=== PATIENT | male | born 1980 | race Caucasian/White ===

== ENCOUNTER → 2017-12-27 08:13 | Outpatient (CLI) | payer MEDICARE, MEDICAID, SELFPAY | PROVIDERS: Family Provider Family Medicine; PCP Family Medicine; Visit Provider Family Medicine | DX: Z79.899 Other long term (current) drug therapy (principal) | CPT/HCPCS: 36415; 82140 ==

== ENCOUNTER 2018-05-04 17:59 | Emergency (ER) | payer MEDICARE, MEDICAID, SELFPAY ==
[2018-05-04 18:00] VITALS: BP 158/118; PULSE 134; RESP 28; TEMP 37.7; O2SAT 99; BMI 32.1
[2018-05-04 18:39] LABS: Absolute Lymphocyte Count 2.58 X10^3/ul (0.83-4.51); Absolute Neutrophil Count 4.3 X10^3/uL (2.0-7.7); Basophil# 0.02 X10^3/uL; Basophil% 0.3 % (0-1); Eosinophil# 0.13 X10^3/uL; Eosinophils% 1.7 % (0-5); Hematocrit 43.8 % (40-54); Hemoglobin 14.9 g/dl (13.0-16.5); Lymphocyte # 2.58 X10^3/ul (4.0); Lymphocyte % 32.9 % (19-41); Mean Corpuscular Hgb 32.2 pg (27.0-32.0); Mean Corpuscular Volume 94.6 fL (80-94); Mean Platelet Vol. 10.6 fl (6.2-12.0); Monocyte# 0.85 X10^3/uL; Monocyte% 10.8 % (0-10); Neutrophil # 4.25 X10^3/uL (2.7-7.7); Neutrophil % 54.2 % (47-70); POSITIVE COUNT NO; POSITIVE DIFFERENTIAL NO; POSITIVE MORPHOLOGY NO; Platelet Count 168 K/mm3 (150-450); RBC Distribution Width CV 12.5 % (11.6-14.6); RBC Distribution Width SD 42.7 fl (35.1-43.9); Red Blood Count 4.63 M/mm3 (4.6-6.2); White Blood Count 7.8 K/mm3 (4.4-11.0)
[2018-05-04 18:54] LABS: AST(SGOT) 20 U/L (15-37); Alanine Aminotransfer ALT/SGPT 46 U/L (16-61); Albumin, Serum 4.2 g/dL (3.2-5.0); Alkaline Phosphatase 72 U/L (45-117); Anion Gap 12 (5-15); BUN 9 mg/dL (7-18); BUN/Creat Ratio 10.6 RATIO (10-20); Calcium,Total 9.1 mg/dL (8.5-10.1); Chloride 106 mmol/L (98-107); Creatinine, Serum 0.85 mg/dL (0.70-1.30); EST Glomerular Filtration Rate 107 mL/min (>60); Est Glom Filt Rate - Afr Amer 130 mL/min (>60); Estimated Creatinine Clearance 138.34 ml/min; Globulin 4.1 g/dL (2.2-4.2); Glucose 114 mg/dL (74-106); Potassium 3.5 mmol/L (3.5-5.1); Protein, Total 8.3 g/dL (6.4-8.2); Sodium Level 141 mmol/L (136-145)
[2018-05-04] MEDS: 0.9% Normal Saline 1,000 ML 1000 ML IV (18:54)
[2018-05-04 19:38] VITALS: BP 164/104; PULSE 109; RESP 18; TEMP 37; O2SAT 96
[2018-05-04 19:39] LABS: Bacteria 0 SEEN /hpf (None Seen); Mucous, Urine 0 SEEN /hpf (<or=2+); Squamous Epithelial Cells - UA 0 SEEN /hpf (0-5)
[2018-05-04 19:57] LABS: Color, Urine Yellow (Yellow); Glucose, Dipstick Normal (Normal); Ketone-Dipstick Negative (Negative); Leukocyte Esterase-Dipstick Negative /ul (Negative); Nitrite-Dipstick Negative (Negative); Occult Blood-Urine Negative /ul (Negative); Protein-Dipstick Negative (Negative); Urine Bilirubin Dipstick Negative (Negative); Urine Clarity Clear (Clear); Urine Urobilinogen Normal (Normal)
[2018-05-04 20:03] LABS: Red Blood Cells-Urine 0-5 SEEN /hpf (0-5); White Blood Cells 0-5 SEEN /hpf (0-5)
--- NOTE | 2018-05-04 20:21 | ED.VISSUMM ---
- ER Visit Summary Date of Service: 05/04/18 Chief Complaint: Issues History of Present Illness: The patient is a 37 M who resides in a care home. He is here with his mother. He has had some behavioral issues today. He is mostly nonverbal, and so history is difficult. Staff at his care home have noted low-grade fevers, swollen glands, and he has been complaining of abdominal pain. He has been treated with Motrin and Ativan, and seems to be improved. Physical Examination: Blood pressure 158/118. Temperature 99.9. Heart rate 134 and respiratory rate 28. 99% on room air. Patient is sitting comfortably. No acute distress. HEENT exam unremarkable except for erythema and bulging to his right TM. No lymphadenopathy. Good range of motion of his neck. Nontender. Heart tachycardic but regular. Lungs clear. Abdomen soft, nontender, nondistended, normal bowel sounds. Extremities nontender with no edema. Skin appears normal in color. Test Results: CBC normal. BMP unremarkable. Urinalysis negative. Chest x-ray showed no acute findings. Alcohol negative. Tox screen pending. Emergency Department Course and Treatment: Patient presents with his mother and staff from the care home. He has had behavioral issues today, and they are concerned for a medical cause, possibly infection. They took him to his primary doctor, who referred him here to the emergency department. Patient has signs of an ear infection. This may be causing his fevers. He has been calm and cooperative here. He did not require psychiatric medication. His workup was all fairly unremarkable. Repeat heart rate was 104. He is afebrile. His abdomen remains soft and nontender. His behavior is appropriate, and his mother does not want psychiatric hospitalization. From a medical standpoint, I believe he is appropriate for outpatient therapy. Will treat with Augmentin. Continue Motrin and Tylenol as needed. Monitor for new or worsening symptoms. I advised her to bring him back if he has further behavioral issues. Treatment Plan: As above Disposition: Discharged Impression: 1. Right acute otitis media This note was generated with Shortlist dictation software. It may contain incorrect words, spelling, and punctuation that were not noted in review of the chart prior to signing ED Disposition - Plan for ED Patient: Chief Complaint: Other, Pain/Inj Referrals: Say Basilio MD [Primary Care Provider] -
--- NOTE | 2018-05-04 20:26 | ED.DCSUM_ITS ---
- ER Visit Summary Date of Service: 05/04/18 Chief Complaint: Issues History of Present Illness: The patient is a 37 M who resides in a fpc. He is here with his mother. He has had some behavioral issues today. He is mostly nonverbal, and so history is difficult. Staff at his fpc have noted low-grade fevers, swollen glands, and he has been complaining of abdominal pain. He has been treated with Motrin and Ativan, and seems to be improved. Physical Examination: Blood pressure 158/118. Temperature 99.9. Heart rate 134 and respiratory rate 28. 99% on room air. Patient is sitting comfortably. No acute distress. HEENT exam unremarkable except for erythema and bulging to his right TM. No lymphadenopathy. Good range of motion of his neck. Nontender. Heart tachycardic but regular. Lungs clear. Abdomen soft, nontender, nondistended, normal bowel sounds. Extremities nontender with no edema. Skin appears normal in color. Test Results: CBC normal. BMP unremarkable. Urinalysis negative. Chest x-ray showed no acute findings. Alcohol negative. Tox screen pending. Emergency Department Course and Treatment: Patient presents with his mother and staff from the fpc. He has had behavioral issues today, and they are concerned for a medical cause, possibly infection. They took him to his primary doctor, who referred him here to the emergency department. Patient has signs of an ear infection. This may be causing his fevers. He has been calm and cooperative here. He did not require psychiatric medication. His workup was all fairly unremarkable. Repeat heart rate was 104. He is afebrile. His abdomen remains soft and nontender. His behavior is appropriate, and his mother does not want psychiatric hospitalization. From a medical standpoint, I believe he is appropriate for outpatient therapy. Will treat with Augmentin. Continue Motrin and Tylenol as needed. Monitor for new or worsening symptoms. I advised her to bring him back if he has further behavioral issues. Treatment Plan: As above Disposition: Discharged Impression: 1. Right acute otitis media This note was generated with [employer] dictation software. It may contain incorrect words, spelling, and punctuation that were not noted in review of the chart prior to signing ED Disposition - Plan for ED Patient: Chief Complaint: Other, Pain/Inj Referrals: Say Basilio MD [Primary Care Provider] -
--- NOTE | 2018-05-04 20:26 | ED.DEP ---
ED Disposition - Plan for ED Patient: Chief Complaint: Other, Pain/Inj Instructions: ED Otitis Media Serous Adult Prescriptions: Amoxicillin/Potassium Clav [Augmentin 875-125 Tablet] 1 ea PO BID #20 tab Referrals: Say Basilio MD [Primary Care Provider] -
[2018-05-04 20:29] LABS: Amphetamine Urine VISTA NEGATIVE (<1000 ng/mL); Barbiturate Urine VISTA NEGATIVE (< 200 ng/mL); Benzodiazepine Urine VISTA NEGATIVE (< 200 ng/mL); Cocaine Urine VISTA NEGATIVE (< 300 ng/mL); Ecstacy Urine VISTA NEGATIVE (< 500 ng/mL); Methadone Urine VISTA NEGATIVE (< 300 ng/mL); PCP Urine VISTA NEGATIVE (< 25 ng/mL); THC Urine VISTA NEGATIVE (< 50 ng/mL); Vista UDS pH Range 7
[2018-05-04] MEDS: Acetaminophen 500 MG Tablet 1000 MG PO (20:33)
[2018-05-04] MEDS: Amox/Clavulanate 875 MG Tablet PO (20:34)
[2018-05-04 20:37] VITALS: PULSE 96; RESP 18
[2018-05-04 20:42] VITALS: BP 159/105
[2018-05-04 21:21] VITALS: BP 144/100
== END 2018-05-04 21:21 | disposition home or self-care (01) ==
PROVIDERS: Emergency Provider Emergency Medicine; Family Provider Family Medicine; PCP Family Medicine
DX: H66.91 Otitis media, unspecified, right ear (principal); E56.9 Vitamin deficiency, unspecified; Z79.899 Other long term (current) drug therapy
CPT/HCPCS: 71045; 80053; 80307; 80320; 81001; 85025; 96360; 96361; 99283; J7030; A4216; G0480

== ENCOUNTER 2018-08-18 23:36 | Emergency (ER) | payer MEDICARE, MEDICAID, SELFPAY ==
[2018-08-18 23:38] VITALS: BP 134/103; PULSE 114; RESP 16; TEMP 37.2; O2SAT 94; BMI 32.6
[2018-08-19 00:47] LABS: Absolute Lymphocyte Count 2.93 X10^3/ul (0.83-4.51); Basophil# 0.04 X10^3/uL; Basophil% 0.6 % (0-1); Eosinophil# 0.16 X10^3/uL; Eosinophils% 2.3 % (0-5); Hematocrit 42.7 % (40-54); Hemoglobin 14.7 g/dl (13.0-16.5); Lymphocyte # 2.93 X10^3/ul (4.0); Lymphocyte % 42.6 % (19-41); Mean Corp Hgb Conc 34.4 g/gl (32-36); Mean Corpuscular Hgb 32.1 pg (27.0-32.0); Mean Corpuscular Volume 93.2 fL (80-94); Mean Platelet Vol. 10.7 fl (6.2-12.0); Monocyte# 0.71 X10^3/uL; Monocyte% 10.3 % (0-10); Neutrophil # 3.03 X10^3/uL (2.7-7.7); Neutrophil % 44.1 % (47-70); POSITIVE COUNT NO; POSITIVE DIFFERENTIAL NO; POSITIVE MORPHOLOGY NO; Platelet Count 178 K/mm3 (150-450); RBC Distribution Width CV 12.6 % (11.6-14.6); RBC Distribution Width SD 42.2 fl (35.1-43.9); Red Blood Count 4.58 M/mm3 (4.6-6.2); White Blood Count 6.9 K/mm3 (4.4-11.0)
[2018-08-19 01:43] LABS: Anion Gap 8 (5-15); BUN 13 mg/dL (7-18); BUN/Creat Ratio 14.5 RATIO (10-20); Calcium,Total 9.2 mg/dL (8.5-10.1); Chloride 108 mmol/L (98-107); EST Glomerular Filtration Rate 101 mL/min (>60); Est Glom Filt Rate - Afr Amer 122 mL/min (>60); Estimated Creatinine Clearance 129.39 ml/min; Glucose 95 mg/dL (74-106); Potassium 3.2 mmol/L (3.5-5.1); Sodium Level 140 mmol/L (136-145)
[2018-08-19 01:45] LABS: Valproic Acid (Depakene) Level 19 ug/mL (50-100)
[2018-08-19 01:48] LABS: Color, Urine Yellow (Yellow); Glucose, Dipstick Normal (Normal); Ketone-Dipstick Negative (Negative); Leukocyte Esterase-Dipstick Negative /ul (Negative); Nitrite-Dipstick Negative (Negative); Occult Blood-Urine Negative /ul (Negative); Protein-Dipstick Negative (Negative); Red Blood Cells-Urine 0 SEEN /hpf (0-5); Urine Bilirubin Dipstick Negative (Negative); Urine Clarity Clear (Clear); Urine Urobilinogen 1 mg/dl (Normal); White Blood Cells 0 SEEN /hpf (0-5)
[2018-08-19 01:58] LABS: Bacteria RARE /hpf (None Seen); Hyaline Cast 0-5 SEEN /lpf (0-5); Mucous, Urine 1+ /hpf (<or=2+); Squamous Epithelial Cells - UA 0-5 SEEN /hpf (0-5)
[2018-08-19 01:59] LABS: Amphetamine Urine VISTA NEGATIVE (<1000 ng/mL); Barbiturate Urine VISTA NEGATIVE (< 200 ng/mL); Benzodiazepine Urine VISTA NEGATIVE (< 200 ng/mL); Cocaine Urine VISTA NEGATIVE (< 300 ng/mL); Ecstacy Urine VISTA NEGATIVE (< 500 ng/mL); Methadone Urine VISTA NEGATIVE (< 300 ng/mL); PCP Urine VISTA NEGATIVE (< 25 ng/mL); THC Urine VISTA NEGATIVE (< 50 ng/mL); Vista UDS pH Range 7
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
--- NOTE | 2018-08-19 02:32 | ED.DEP ---
ED Disposition - Plan for ED Patient: Chief Complaint: General Illness Referrals: Say Basilio MD [Primary Care Provider] - Additional Instructions: You were seen tonight for behavior problem. This does not appear to be due to an acute medical illness. Lab work was essentially normal. Potassium was slightly low and a valproic acid level was below the range that is targeted for seizures but given that this is used for behavioral issues does not need to be at the same level as when used for seizures. If symptoms continue I would recommend that you follow-up with your primary care physician. Return for new or worsening symptoms.
[2018-08-19 02:52] VITALS: RESP 16
[2018-08-22 11:11] LABS: Topiramate 8.6 ug/mL (2.0-25.0)
--- OUTSIDE RECORDS SUMMARY | 2018-11-21 12:43 | XMS RPT_ITS ---
:1980 Author Organization OHIP Care Team Providers Name Role Phone Maddy Basilio Primary Care Unavailable Ilir Fay Attending Unavailable Maddy Basilio Primary Care Unavailable Maddy Basilio Attending Unavailable Maddy Basilio Referring Unavailable Maddy Basilio Primary Care Unavailable Michele Bianchi Attending Unavailable Maddy Basilio Primary Care Unavailable Araseli Conroy Attending Unavailable MADDY BASILIO Attending Unavailable MADDY BASILIO Referring Unavailable MADDY BASILIO Referring Unavailable MADDY BASILIO Referring Unavailable MADDY BASILIO Attending Unavailable Sadaf UP (CARLOSC) Attending Unavailable Sadaf UP (PA-C) Attending Unavailable MADDY BASILIO Attending Unavailable MADDY BASILIO Attending Unavailable MADDY BASILIO Referring Unavailable MADDY BASILIO Referring Unavailable MADDY BASILIO Attending Unavailable MADDY BASILIO Referring Unavailable MADDY BASILIO Referring Unavailable MADDY BASILIO Referring Unavailable MADDY BASILIO Referring Unavailable Sadaf UP (PA-C) Referring Unavailable ZAY RODRIGUEZ, DR SWAIN Admitting Unavailable ZAY RODRIGUEZ, DR SWAIN Attending Unavailable NONE, NONE Consulting Unavailable PROBLEMS PROBLEMS DATE TYPE CONDITION / CODE ATTENDING STATUS SOURCE 02/09/2017 Active Other symptoms and NA Active [facility] signs involving [facility] appearance and [place] behavior / Repository R46.89(ICD-10) 09/17/2018 Active Hypokalemia / NA Active [facility] E87.6(ICD-10) [facility] [place] Repository 09/17/2018 Active Restlessness and NA Active [facility] agitation / [facility] R45.1(ICD-10) [place] Repository 05/16/2018 Active Unknown / UNK(Unknown) MADDY BASILIO Active [facility] J [facility] [place] Repository 04/21/2018 Active Encephalopathy, NA Active [facility] unspecified / [facility] G93.40(ICD-10) [place] Repository 02/24/2018 Active Other director long term care NA Active [facility] (current) drug therapy [facility] / Z79.899(ICD-10) [place] Repository 02/24/2018 Active Encounter for NA Active [facility] therapeutic drug level [facility] monitoring / [place] Z51.81(ICD-10) Repository 01/01/2018 Active Nocturnal enuresis / NA Active [facility] N39.44(ICD-10) [facility] [place] Repository 12/27/2017 Unknown Z79.899 - Other long Maddy Basilio Active [place] term (current) drug [facility] therapy [facility] Z79.899(ICD-10) Repository 12/16/2017 Active Epilepsy, unspecified, NA Active [facility] not intractable, [facility] without status [place] epilepticus / Repository G40.909(ICD-10) 10/21/2017 Active Unspecified abnormal NA Active [facility] finding in specimens [facility] from other organs, [place] systems and tissues / Repository R89.9(ICD-10) 02/02/2006 Active Pure hyperglyceridemia NA Active [facility] / E78.1(ICD-10) [facility] [place] Repository PROCEDURES PROCEDURES No Procedure Records FoundRESULTS RESULTS EMERGENCY DEPARTMENT Observed: 09/20/2018 Status: C Source: [place] SUMMARY 4:18 AM [facility] Medical Records Department [address] [place] [address] Emergency Department Summary 09/18/18 0619 MR#: [id number] Acct: [id number] Name: JAYE PAUL Rep #: [id number] : 1980 38 From: Araseli Conroy MD PCP: Maddy Basilio MD Status: REG ER ADDENDUM by Ilir Fay MD on 09/20/18 at 0418 Patient has been signed out through multiple physicians while attempting to have the patient placed. While in my care he did become increasingly agitated. He was given IM Ativan and has been cooperative at the time of this dictation. Date Ilir Fay MD cc: Maddy Basilio MD * Addendum ADDENDUM by Moises Velazquez on 09/19/18 at 8544 Patient signed out earlier to me. He was in restraints due to aggressive behavior was given Geodon. He was monitored, restraints were removed at 0154. Patient medically cleared with labs. Pending placement at this time. Date Moises Velazquez DO cc: Maddy Basilio MD * Addendum - ER Visit Summary Date of Service: 09/18/18 Chief Complaint: Aggressive behavior History of Present Illness: The patient is a 38 M with a history of Asperger's currently living at a fdc. Per fdc staff patient had increased aggressive behavior at the fdc of the last 6 weeks or so. There have been some recent medication adjustments. Patient was seen by his doctor yesterday where he was diagnosed with cellulitis along the gluteal cleft and he was started on doxycycline. Mother states some blood work was done at that time. She reviewed the available results with me on my chart. Patient was more aggressive again tonight and please had to be called. Physical Examination: Vital signs grossly unremarkable. Patient sitting upright in bed. He has largely nonverbal at baseline. Head neck examination reveals no sign of trauma. Heart is regular rate and rhythm. Lungs sounds are clear. Abdomen is soft nontender. Skin examination was mild erythema with a small blister along the left superior gluteal cleft. No fluctuance or sign of abscess. Neuro exam reveals the patient to be alert. He moves all 4. Test Results: Chemistry studies are unremarkable. Glucose is 92. Ammonia level is 33. Emergency Department Course and Treatment: I initially reviewed plan with mother at bedside. He just had a whole host of labs done yesterday so we agreed to repeat his glucose, ammonia, and his Depakote level. At nursing change of shift new nurse went in to introduce himself. alf staff now states they will not take him back without crisis evaluated the patient. Remainder of required labs have been ordered and patient be signed out to oncoming physician. Treatment Plan: [] Disposition: Pending crisis evaluation Impression: Aggressive behavior with history of Asperger's This note was generated with [employer] dictation software. It may contain incorrect words, spelling, and punctuation that were not noted in review of the chart prior to signing ED Disposition - Plan for ED Patient: Chief Complaint: Mental Health Referrals: Maddy Basilio MD [Primary Care Provider] - What to do if you have Problems For any increased pain, shortness of breath, bleeding, nausea or vomiting, chest pain, or any unexpected problems, contact your Primary Care Provider. Call [facility] ([phone]) or report to the closest Emergency Room. Call 911 if necessary. 09/18/18 0724 <Electronically signed by Araseli Conroy MD> Date Araseli Conroy MD Cosigner Signature (If Indicated): Date CC: Maddy Basilio MD DISCHARGE INSTRUCTION Observed: 09/19/2018 Status: F Source: [place] 4:05 PM [facility] Medical Records Department [address] [place] [address] Discharge Instruction 09/19/18 0955 MR#: [id number] Acct: [id number] Name: JAYE PAUL Rep #: [id number] : 1980 38 From: Damián Canas MD PCP: Maddy Basilio MD Status: REG ER ED Disposition - Plan for ED Patient: Disposition: Home or Assisted Living Chief Complaint: Mental Health Referrals: Maddy Basilio MD [Primary Care Provider] - As Needed Additional Instructions: Crisis was unable to find appropriate placement for this patient. Psychiatric facilities were unwilling to assume his care. What to do if you have Problems For any increased pain, shortness of breath, bleeding, nausea or vomiting, chest pain, or any unexpected problems, contact your Primary Care Provider. Call [facility] ([phone]) or report to the closest Emergency Room. Call 911 if necessary. 09/19/18 8594 <Electronically signed by Damián Canas MD> Date Damián Canas MD Cosigner Signature (If Indicated): Date CC: Maddy Basilio MD URINE DRUG SCREEN Collected: 09/18/2018 Status: F Source: [place] (VISTA) 8:28 AM [facility] Order Comment: Order Date: 09/18/18 TYPE CODE TESTS RESULT OUT OF RANGE REFERENCE UNITS LAB L505.0075 TO BE Normal CONFIRMED Result Comment: CONFIRMATORY TESTING FOR ALL POSITIVE URINE DRUG SCREEN RESULTS WILL ONLY BE SENT OUT UPON PHYSICIAN ORDER. VISTA Urine Drug Screen methods provide only preliminary analytical test results. A more specific alternate chemical method must be used in order to obtain a confirmed analytical result. Gas chromatography/mass spectrometery (GC/MS) is the preferred confirmatory method. Clinical consideration and professional judgement should be applied to any drug of abuse test result, particularly when preliminary positive results are used. URINE TCA TESTING MUST BE ORDERED SEPARATELY. USE TEST MNEMONIC: [facility] LAB L505.5005 VISTA UDS PH 7 Normal LAB L505.5015 <1000 ng/mL AMPHETAMINES Normal NEGATIVE LAB L505.5025 < 200 ng/mL BARBITIURATES Normal NEGATIVE LAB L505.5035 < 200 ng/mL BENZODIAZIPINE Normal NEGATIVE LAB L505.5045 < 300 ng/mL COCAINE Normal NEGATIVE LAB L505.5055 < 500 ng/mL ECSTACY Normal NEGATIVE LAB L505.5065 < 300 ng/mL METHADONE Normal NEGATIVE LAB L505.5075 < 300 ng/mL OPIATES Normal NEGATIVE LAB L505.5085 < 25 ng/mL PCP Normal NEGATIVE LAB L505.5095 < 50 ng/mL THC Normal NEGATIVE Performed By: #### L505.5000 #### [facility] [address] [place], [place], [address] BASIC METABOLIC Collected: 09/18/2018 Status: F Source: [place] PROFILE (BMP) 6:25 AM [facility] TYPE CODE TESTS RESULT OUT OF RANGE REFERENCE UNITS LAB L501.0100 74-106 mg/dL Normal GLU 92 Result Comment: Please note revised GLUCOSE reference range effective 2017. LAB L501.1000 7-18 mg/dL Normal BUN 8 LAB L501.1100 0.70-1.30 mg/dL Normal CREAT,SERUM 0.84 Result Comment: The validity of the calculated GFR AND GFRAA in patients over 70 years has not been determined. Clinical correlation is essential. LAB L501.1110 >60 mL/min Normal EST GFR 108 Result Comment: Non- GFR Calc LAB L501.1115 >60 mL/min Normal EST GFR - AA 131 Result Comment: GFR Calc LAB L501.1255 ml/min Normal Estimated CRCL 123.12 LAB L501.1300 10-20 RATIO Low BUN/CRE 9.5 LAB L501.2200 8.5-10 mg/dL .1 CA Normal 8.8 LAB L501.5300 136-14 mmol/L 5 NA Normal 137 LAB L501.5600 3.5-5. mmol/L 1 K Normal 3.5 LAB L501.5900 98-107 mmol/L CL Normal 103 LAB L501.6100 21.0-3 mmol/L 2.0 CO2 Normal 24.0 LAB L501.6200 5-15 GAP Normal 10 Performed By: #### L500.2500 #### [facility] [address] [place], [place], [address] AM[place]IA Collected: 09/18/2018 Status: F Source: [place] 6:25 AM [facility] TYPE CODE TESTS RESULT OUT OF REFERENCE UNITS RANGE LAB L503.5510 11-32 umol/L High AMMONIA 33.0 Performed By: #### L503.5510 #### [facility] [address] [place], [address] VALPROIC ACID Collected: 09/18/2018 Status: F Source: [place] ([place]) LEVEL 6:25 AM [facility] TYPE CODE TESTS RESULT OUT OF RANGE REFERENCE UNITS LAB L501.8100 50-100 ug/mL Normal VALPROIC ACID 83 Performed By: #### L501.8100 #### [facility] [address] [place], [address] ALCOHOL, BLOOD Collected: 09/18/2018 Status: F Source: [place] (MEDICAL)-SERUM 6:25 AM [facility] TYPE CODE TESTS RESULT OUT OF RANGE REFERENCE UNITS LAB L501.9100 mg/dL Normal SERUM 12.0 ETOH Result Comment: The serum:whole blood ethanol ratio is approximately 1.14 and varies slightly with hematocrit. Medical Alcohol reference interval and critical value in non-tolerant individuals; 50 - 100 Impairment 100 Intoxication 100 - 250 Severe Poisoning 250 - 400 Deep/possible fatal coma Performed By: #### L501.9100 #### [facility] [address] [place], [place], [address] CBC W/DIFF, AUTOMATED Collected: 09/18/2018 Status: F Source: [place] 6:25 AM [facility] TYPE CODE TESTS RESULT OUT OF RANGE REFERENCE UNITS LAB L100.1000 4.4-11.0 K/mm3 Normal WBC 6.0 LAB L100.1200 4.6-6.2 M/mm3 Normal RBC 4.74 LAB L100.1300 13.0-16.5 g/dl Normal HGB 15.2 LAB L100.1400 40-54 % Normal HCT 44.5 LAB L100.1500 80-94 fL Normal MCV 93.9 LAB L100.1600 27.0-32.0 pg High MCH 32.1 LAB L100.1700 32-36 g/gl Normal MCHC 34.2 LAB L100.1810 11.6-14.6 % Normal RDW CV 12.6 LAB L100.1820 35.1-43.9 fl Normal RDW SD 42.3 LAB L100.1900 150-450 K/mm3 Normal PLT 177 LAB L100.2000 6.2-12.0 fl Normal MPV 11.6 LAB L100.2100 47-70 % Low NEUT% 33.4 LAB L100.2200 19-41 % High LY% 45.8 LAB L100.2300 0-10 % High MONO% 16.8 LAB L100.2400 0-5 % Normal EO% 3.3 LAB L100.2500 0-1 % Normal BASO% 0.5 LAB L100.2550 0.0-0.9 % Normal IM GRAN % 0.200 Result Comment: IG% - Immature Granulocytes (promyelocytes, myelocytes and metamyelocytes) > 1% indicates that a LEFT SHIFT is Present. LAB L100.2620 2.0-7.7 X10 3/uL Normal Absolute Neut 2.0 LAB L100.2720 0.83-4.51 X10 3/ul Normal Absolute Lymph 2.75 Performed By: #### L100.0100 #### [facility] [address] [place], [place], [id number] LIVER PROFILE Collected: 09/18/2018 Status: F Source: [place] 6:25 AM [facility] TYPE CODE TESTS RESULT OUT OF RANGE REFERENCE UNITS LAB L501.1500 6.4-8.2 g/dL Normal T PROT 7.6 LAB L501.1800 3.2-5.0 g/dL Normal ALB 3.9 LAB L501.1950 2.2-4.2 g/dL Normal GLOB 3.7 LAB L501.4100 15-37 U/L Normal AST 26 LAB L501.4305 45-117 U/L Normal ALK P 60 LAB L501.4405 16-61 U/L Normal ALT 54 LAB L501.4600 0.20-1.00 mg/dL Normal T BILI 0.30 LAB L501.4700 0.00-0.30 mg/dL Normal D BILI 0.13 Performed By: #### L500.3400 #### [facility] [address] [facility] [place], [place], [address] CBC AND DIFFERENTIAL Collected: 09/17/2018 Status: F Source: [place] 2:25 PM [facility] REPOSITORY TYPE CODE TESTS RESULT OUT OF REFERENCE UNITS RANGE LAB WBC 3.70-11.00 k/uL WBC 6.45 LAB RBC 4.20-6.00 m/uL RBC 4.98 LAB HGB 13.0-17.0 g/dL Hemoglobin 16.0 LAB HCT 39.0-51.0 % Hematocrit 47.8 LAB MCV 80.0-100.0 fL MCV 96.0 LAB MCH 26.0-34.0 pG MCH 32.1 LAB MCHC 30.5-36.0 g/dL MCHC 33.5 LAB RDWCV 11.5-15.0 % RDW-CV 12.5 LAB PLTCT 150-400 k/uL Platelet Count 182 LAB MPV 9.0-12.7 fL MPV 11.8 LAB ANEUT % Neut% 43.9 LAB AANEUT 1.45-7.50 k/uL Abs Neut 2.82 LAB ALYMP % Lymph% 46.8 LAB AALYMP 1.00-4.00 k/uL Abs Lymph 3.02 LAB AMONO % [place]% 8.7 LAB AAMONO <0.87 k/uL Abs [place] 0.56 LAB AEOS % Eosin% 0.0 LAB AAEOS <0.46 k/uL Abs Eosin <0.03 LAB ABASO % Baso% 0.6 LAB AABASO <0.11 k/uL Abs Baso 0.04 LAB AUNRBC 0 /100 WBC NRBCs 0.0 LAB ABNRBC <0.01 k/uL Absolute nRBC <0.01 LAB DTYP DTYPE Auto Diff Performed By: #### CBCDIF #### [facility] [employer] [address] [address] POTASSIUM Collected: 09/17/2018 Status: F Source: [place] 2:25 PM [facility] REPOSITORY TYPE CODE TESTS RESULT OUT OF REFERENCE UNITS RANGE LAB K 3.7-5.1 mmol/L Low Potassium 3.6 Performed By: #### K1 #### [facility] [employer] [address] [place], [place] [address] VALPROIC ACID Collected: 09/17/2018 Status: F Source: [place] 2:24 PM [facility] REPOSITORY TYPE CODE TESTS RESULT OUT OF REFERENCE UNITS RANGE LAB VPA 50-100 ug/mL Valproic Acid 73.6 Result Comment: Reference ranges and high/low indicator flags are provided as general guidelines only. The treating physician must determine appropriate target levels/dosing based on the specific clinical situation. Performed By: #### VPA, NH3, CMP, TSH, TOPIR #### [facility] [address] [place], [place] [address] AMMONIA Collected: 09/17/2018 Status: F Source: [place] 2:24 PM [facility] REPOSITORY TYPE CODE TESTS RESULT OUT OF REFERENCE UNITS RANGE LAB NH3 16-60 umol/L Ammonia 37 Performed By: #### VPA, NH3, CMP, TSH, TOPIR #### [facility] [address] [place], [place] [address] COMP METABOLIC PANEL Collected: 09/17/2018 Status: F Source: [place] 2:24 PM [facility] REPOSITORY TYPE CODE TESTS RESULT OUT OF REFERENCE UNITS RANGE LAB TP 6.3-8.0 g/dL Protein, Total 7.8 LAB ALB 3.9-4.9 g/dL Albumin 4.7 LAB CA 8.5-10.2 mg/dL Calcium, Total 9.6 LAB TBIL 0.2-1.3 mg/dL Bilirubin, Total 0.3 LAB ALKP 38-113 U/L Alkaline Phosphatase 55 LAB AST 14-40 U/L AST 29 LAB GLU 74-99 mg/dL Glucose High 115 Result Comment: The [place] [employer] (ADA) provides guidance for cutoff values for fasting glucose and random glucose. The ADA defines fasting as no caloric intake for at least 8 hours. Fas ting plasma glucose results between 100 to 125 mg/dL indicate increased risk for diabetes (prediabetes). Fasting plasma glucose results greater than or equal to 126 mg/dL meet the criteria for diagnosis of diabetes. In the absence of unequivocal hyperglycemia, results should be confirmed by repeat testing. In a patient with classic symptoms of hyperglycemia or hyperglycemic crisis, random plasma glucose results greater than or equal to 200 mg/dL meet the criteria for diagnosis of diabetes. Reference: Standards of Medical Care in Diabetes 2016, [place] [employer]. Diabetes Care. 2016.39(Suppl 1). LAB BUN 9-24 mg/dL BUN Low 8 LAB CRET 0.73-1.22 mg/dL Creatinine 0.78 LAB NA 136-144 mmol/L Sodium Low 135 LAB K 3.7-5.1 mmol/L Potassium Low 3.5 LAB CL 97-105 mmol/L Chloride 98 LAB CO2 22-30 mmol/L CO2 24 LAB AGAP 9-18 mmol/L Anion Gap 13 LAB ALT 10-54 U/L ALT 42 LAB GFRAA eGFR- Amer. >60 LAB GFRNAA . eGFR-All Other Races >60 Result Comment: eGFR (Estimated GFR) Units of measure: mL/min/1.73 meters squared eGFR is derived from the reexpressed MDRD Study equation using the following parameters: serum creatinine, age, gender and race. The creatinine assay has been calibrated to be traceable to IDMS. An eGFR <60 mL/min/1.73m2 for >3 months is consistent with chronic kidney disease. Refer to KDOQI guidelines for clinical interpretation. In patients with unstable renal function, e.g. those with acute kidney injury, the eGFR may not accurately reflect actual GFR. Performed By: #### VPA, NH3, CMP, TSH, TOPIR #### [facility] [employer] [address] [address] TSH Collected: 09/17/2018 Status: F Source: [place] 2:24 PM [facility] REPOSITORY TYPE CODE TESTS RESULT OUT OF RANGE REFERENCE UNITS LAB TSH 0.400-5.500 uU/mL TSH 2.260 Performed By: #### VPA, NH3, CMP, TSH, TOPIR #### [facility] [employer] [address] [place] [address] TOPIRAMATE Collected: 09/17/2018 Status: F Source: [place] 2:24 PM [facility] REPOSITORY TYPE CODE TESTS RESULT OUT OF REFERENCE UNITS RANGE LAB TOPIR 5.0-20.0 ug/mL Topiramate 5.2 Result Comment: Reference ranges and high/low indicator flags are provided as general guidelines only. The treating physician must determine appropriate target levels/dosing based on the specific clinic al situation. This test was developed and its performance characteristics determined by [facility]'s Leroy Zaidi [facility] [place] ([facility]). It has not been cleared or approved by the FDA. [facility] is regulated under CLIA as qualified to perform high-complexity testing. This test is used for clinical purposes. It should not be regarded as investigational or for research. Performed By: #### VPA, NH3, CMP, TSH, TOPIR #### [facility] [address] [place], [place] [address] PROGRESS Observed: 09/17/2018 Status: COMPLETED Source: [place] 2:00 PM [facility] REPOSITORY HNO ID: [id number] Author: Maddy Basilio Service: (none) Author Type: Physician Type: Progress Notes Filed: 09/17/2018 2:30 PM Note Text: Patient presents with: Derm Problem HPI: Patient presents today for office visit for acute visit. Noticed some irritation a month ago at the cleft of the buttock. Now has noted some changes again today. Slightly raised. Behaviors have been better last week. Has been having some hallucinations the last day or so but has done that in the past. No fever or chills. No drainage. MEDICATIONS: Current Outpatient Prescriptions: divalproex ER (DEPAKOTE ER) 500 mg 24 hr tablet Take 1 tablet by mouth twice daily. topiramate (TOPAMAX) 25 mg tablet Take 4 tablets by mouth twice daily. QUEtiapine (SEROQUEL) 100 mg tablet Take 50 mg by mouth in the AM, 100 mg in the afternoon, and 1 (100 mg) tablet by mouth in the PM mometasone (ELOCON) 0.1 % cream Apply 1 application to affected area once daily. cholecalciferol (VITAMIN D) 1,000 unit tab tablet Take 1 tablet by mouth once daily. omeprazole (PRILOSEC) 20 mg capsule TAKE (1) CAPSULE BY MOUTH DAILY. gemfibrozil (LOPID) 600 mg tablet TAKE 1 TABLET BY MOUTH TWICE DAILY BEFORE MEALS chlorhexidine (HIBICLENS) 4 % external liquid Wash entire body from neck down every Monday. Leave on for 5 min. Scrub gently AND Rinse. acetaminophen (MAPAP) 325 mg tablet Take 2 tablets by mouth every 6 hours as needed. for pain/fever above 99/headache. May alternate with ibuprofen. PARoxetine (PAXIL) 30 mg tablet Take 30 mg by mouth twice daily. melatonin 3 mg Take 1 tablet by mouth daily at bedtime. May use additional 3 mg as needed. lactulose (DUPHALAC, CONSTULOSE) 10 gram/15 mL solution GIVE 30ML BY MOUTH TWICE DAILY NEEDED IF NO BM IN 2 DAYS MAGNESIUM, ALUMINUM HYDROXIDE (MYLANTA ORAL) Take 30 mL by mouth as needed. Ibuprofen 200 mg cap Take 400 mg by mouth every 6 hours as needed. terbinafine HCl (LAMISIL) 1 % cream Apply 1 application to affected area once a week, and may resume daily application if redness and scaling between toes recur mupirocin 2 % ointment Apply to affected area of the right underarm twice daily as needed. miconazole (ZEASORB AF) 2 % powder Apply 1 application to affected area as needed (for irritation of the groin and the inferior abdomen.). LORazepam 1 mg ORAL tablet Take 1 tablet by mouth every 6 hours as needed. clonazePAM 0.5 mg ORAL tablet Take 1 tablet by mouth twice daily. No current facility-administered medications for this visit. ALLERGIES: ALLERGIES Allergen Reactions - Cats Mental Status Change - Dust Mental Status Change - Egg Unknown Has been able to take flu shots and eats eggs - Keppra [Levetiracet* changes personality - Lamictal [Lamotrigi* Did not respond well - Seasonal Allergies Mental Status Change Short ragweed, grass cocklebur, vidhya - Trees Mental Status Change PAST MEDICAL HISTORY Diagnosis Date - Chiari malformation type I (HCC) - Oppositional defiant disorder of childhood or adolescence - Other convulsions SEIZURE - Pure hyperglyceridemia - Unspecified intellectual disabilities PAST SURGICAL HISTORY Procedure Laterality Date - BRONCHOSCOPY 11/2008 Dr. Mccoy - EXTRACTION ERUPTED TOOTH/EXR age 16-18 wisdom teeth FAMILY HISTORY Problem Relation Age of Onset - Cancer Paternal Grandfather esophagus - Lipids Father - Thyroid Mother - Prostate Cancer Maternal Grandfather age 70's - Diabetes Paternal Grandmother - Cancer Father BCC Social History Marital status: Single Spouse name: Years of education: Number of children: Social History Main Topics Smoking status: Never Smoker Smokeless tobacco: Never Used Alcohol use: No Drug use: No Sexual activity: No Social History Narrative Neurologist: Dr. Marvin Mccarthy- fax# [phone] Reviewed current medications, allergies, past medical history, surgical history, family history and social history today. REVIEW OF SYSTEMS All other reviewed and negative other than HPI. HEALTH MAINTENANCE: Reviewed health maintenance issues today and recommended the following in detail. DTAP,TDAP,TD(9 - Tdap) due on 08/24/2017 INFLUENZA(1) due on 05/05/2018 VITALS: Pulse 96 Temp 36.7 ?C (98 ?F) (Tympanic) SpO2 100% Last 4 Encounter Wt Readings: Date: Wt: 06/15/2018 112.5 kg (248 lb) 05/31/2018 113.9 kg (251 lb) 05/16/2018 115.6 kg (254 lb 12.8 oz) 02/23/2018 112.9 kg (249 lb) PHYSICAL EXAMINATION: General appearance: Well appearing, alert, in no acute distress, well-hydrated, well nourished. Skin: area of skin at top of the buttock cleft is abraded. Has some thickened skin that is red. Several small raised areas that appear to have superficial pus. I would like to webb with a needle to drain and I and D but I do not think he will tolerate. They had to sedate with ativan to even get him to allow me to examine it. No palpable abscess. ASSESSMENT/PLAN: 1. Cellulitis of skin - ICD9: 682.9, ICD10: L03.90 (primary diagnosis) - No lymphangetic streaking, this was defined for patient to watch for and to seek medical care immediately if appears - cover empirically. Call if worsens at all. Recheck one week. Neosporin prn. - DOXYCYCLINE MONOHYDRATE 100 MG CAPSULE 2. Nonintractable epilepsy without status epilepticus, unspecified epilepsy type (HCC) - ICD9: 345.90, ICD10: G40.909 - call if any issues. Maddy Basilio MD CNOV Observed: 09/17/2018 Status: COMPLETED Source: [place] 1:40 PM [facility] REPOSITORY Office Visit (FAMPWS) JAYE PAUL ([id number]) 1980 M Date Time Provider Department 09/17/18 1:40 PM MADDY BASILIOWS During your visit today, we recorded the following information about you: Temperature Pulse 98 degrees 96/minute Maddy Basilio MD 09/17/2018 2:30 PM Signed Patient presents with: Derm Problem HPI: Patient presents today for office visit for acute visit. Noticed some irritation a month ago at the cleft of the buttock. Now has noted some changes again today. Slightly raised. Behaviors have been better last week. Has been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 [address], [place] [address] CBC AND DIFFERENTIAL Collected: 06/15/2018 Status: F Source: [place] 3:46 PM [facility] REPOSITORY TYPE CODE TESTS RESULT OUT OF REFERENCE UNITS RANGE LAB WBC 3.70-11.00 k/uL WBC 7.01 LAB RBC 4.20-6.00 m/uL RBC 5.09 LAB HGB 13.0-17.0 g/dL Hemoglobin 16.4 LAB HCT 39.0-51.0 % Hematocrit 48.6 LAB MCV 80.0-100.0 fL MCV 95.5 LAB MCH 26.0-34.0 pG MCH 32.2 LAB MCHC 30.5-36.0 g/dL MCHC 33.7 LAB RDWCV 11.5-15.0 % RDW-CV 12.3 LAB PLTCT 150-400 k/uL Platelet Count 198 LAB MPV 9.0-12.7 fL MPV 11.6 LAB ANEUT % Neut% 32.9 LAB AANEUT 1.45-7.50 k/uL Abs Neut 2.30 LAB ALYMP % Lymph% 49.9 LAB AALYMP 1.00-4.00 k/uL Abs Lymph 3.50 LAB AMONO % Rac[place]% 12.3 LAB AAMONO <0.87 k/uL Abs [place] 0.86 LAB AEOS % Eosin% 4.0 LAB AAEOS <0.46 k/uL Abs Eosin 0.28 LAB ABASO % Baso% 0.9 LAB AABASO <0.11 k/uL Abs Baso 0.06 LAB AUNRBC 0 /100 WBC NRBCs 0.0 LAB ABNRBC <0.01 k/uL Absolute nRBC <0.01 LAB DTYP DTYPE Auto Diff Performed By: #### BMP, CBCDIF, NH3, TOPIR #### [facility] [employer] [address] [address] AMMONIA Collected: 06/15/2018 Status: F Source: [place] 3:46 PM [facility] REPOSITORY TYPE CODE TESTS RESULT OUT OF REFERENCE UNITS RANGE LAB NH3 16-60 umol/L Ammonia 40 Performed By: #### BMP, CBCDIF, NH3, TOPIR #### [facility] [employer] [address] [address] TOPIRAMATE Collected: 06/15/2018 Status: F Source: [place] 3:46 PM [facility] REPOSITORY TYPE CODE TESTS RESULT OUT OF REFERENCE UNITS RANGE LAB TOPIR 5.0-20.0 ug/mL Topiramate 8.3 Performed By: #### BMP, CBCDIF, NH3, TOPIR #### [facility] [employer] [address] [address] PROGRESS Observed: 06/15/2018 Status: COMPLETED Source: [place] 1:31 PM [facility] REPOSITORY HNO ID: [id number] Author: Sadaf Chirinos (Hernando) Jeovanny Service: (none) Author Type: Physician Senior Quality Assurance Engineer Type: Progress Notes Filed: 06/15/2018 8:30 PM Note Text: 38 year old male with c/o nosebleeds off and on over last week. Had two in last day. Usually 10 minutes. Usually hold tissue over nose, head forward. Mom concerned temp up to 99.3F. Behavior more agitated as previous. Seeing neurologist: taking off depakote. Mom worried because of behavior change and elevated temp that something more is going on. No nasal congestion, drip. No cough. Had a day skipped breakfast and lunch which is unusual. No difficulty with urination or stools. HISTORIES FAMILY HISTORY Problem Relation Age of Onset - Cancer Paternal Grandfather esophagus - Lipids Father - Thyroid Mother - Prostate Cancer Maternal Grandfather age 70's - Diabetes Paternal Grandmother - Cancer Father BCC PAST MEDICAL HISTORY Diagnosis Date - Chiari malformation type I (HCC) - Oppositional defiant disorder of childhood or adolescence - Other convulsions SEIZURE - Pure hyperglyceridemia - Unspecified intellectual disabilities PAST SURGICAL HISTORY Procedure Laterality Date - BRONCHOSCOPY 11/2008 Dr. Mccoy - EXTRACTION ERUPTED TOOTH/EXR age 16-18 wisdom teeth Social History Marital status: Single Spouse name: Years of education: Number of children: Social History Main Topics Smoking status: Never Smoker Smokeless tobacco: Never Used Alcohol use: No Drug use: No Sexual activity: No Social History Narrative Neurologist: Dr. Marvin Mccarthy- fax# [phone] ACTIVE PROBLEM LIST Mental Retardation Epilepsy (Hcc) Pure Hyperglyceridemia Obesity, Unspecified Oppositional Defiant Disorder CHIARI I MALFORMATION Physically Aggressive Behavior Gerd With Esophagitis Current Outpatient Prescriptions: divalproex ER (DEPAKOTE ER) 500 mg 24 hr tablet Take 1 tablet by mouth twice daily. Take 500 mg in the morning and 100 mg in the evening. (Patient taking differently: Take 250 mg by mouth once daily. Take in the evening. ) Disp: Rfl: topiramate (TOPAMAX) 25 mg tablet Take 2 tablets by mouth twice daily. (Patient taking differently: Take 150 mg by mouth twice daily. ) Disp: Rfl: QUEtiapine (SEROQUEL) 100 mg tablet Take 50 mg by mouth in the AM, 100 mg in the afternoon, and 1 (100 mg) tablet by mouth in the PM Disp: Rfl: mometasone (ELOCON) 0.1 % cream Apply 1 application to affected area once daily. Disp: 45 g Rfl: 0 cholecalciferol (VITAMIN D) 1,000 unit tab tablet Take 1 tablet by mouth once daily. Disp: 90 tablet Rfl: 3 omeprazole (PRILOSEC) 20 mg capsule TAKE (1) CAPSULE BY MOUTH DAILY. Disp: 30 capsule Rfl: 11 gemfibrozil (LOPID) 600 mg tablet TAKE 1 TABLET BY MOUTH TWICE DAILY BEFORE MEALS Disp: 60 tablet Rfl: 11 chlorhexidine (HIBICLENS) 4 % external liquid Wash entire body from neck down every Monday. Leave on for 5 min. Scrub gently AND Rinse. Disp: 240 mL Rfl: 11 acetaminophen (MAPAP) 325 mg tablet Take 2 tablets by mouth every 6 hours as needed. for pain/fever above 99/headache. May alternate with ibuprofen. Disp: 100 tablet Rfl: 3 PARoxetine (PAXIL) 30 mg tablet Take 30 mg by mouth twice daily. Disp: Rfl: melatonin 3 mg Take 1 tablet by mouth daily at bedtime. May use additional 3 mg as needed. Disp: 90 tablet Rfl: 1 lactulose (DUPHALAC, CONSTULOSE) 10 gram/15 mL solution GIVE 30ML BY MOUTH TWICE DAILY NEEDED IF NO BM IN 2 DAYS Disp: 473 mL Rfl: 0 MAGNESIUM, ALUMINUM HYDROXIDE (MYLANTA ORAL) Take 30 mL by mouth as needed. Disp: Rfl: Ibuprofen 200 mg cap Take 400 mg by mouth every 6 hours as needed. Disp: Rfl: terbinafine HCl (LAMISIL) 1 % cream Apply 1 application to affected area once a week, and may resume daily application if redness and scaling between toes recur Disp: 60 g Rfl: 0 mupirocin 2 % ointment Apply to affected area of the right underarm twice daily as needed. Disp: 44 g Rfl: 0 miconazole (ZEASORB AF) 2 % powder Apply 1 application to affected area as needed (for irritation of the groin and the inferior abdomen.). Disp: 1 Each Rfl: 6 LORazepam 1 mg ORAL tablet Take 1 tablet by mouth every 6 hours as needed. Disp: Rfl: 0 clonazePAM 0.5 mg ORAL tablet Take 1 tablet by mouth twice daily. Disp: Rfl: 0 No current facility-administered medications for this visit. DTAP,TDAP,TD(9 - Tdap) due on 08/24/2017 INFLUENZA(1) due on 05/05/2018 EXAM: BP 126/82 Pulse 96 Temp 36.8 ?C (98.2 ?F) (Tympanic) Wt 112.5 kg (248 lb) BMI 33.63 kg/m? Pleasant adult in no acute distress. Alert and oriented all spheres. Normal affect and cognition. Speech normal. No deficits to learning or comprehension. Skin warm, dry, pink to lips and nailbeds. Normal turgor. Respirations regular and unlabored. HEENT WNL. TM's clear. Nose: white crusts on right distal septum, blood on left distal septum. No lesion or mass. and oropharynx free from injection or lesion. No cervical lymph nodes. Thyroid non- tender, no masses Extrem: no clubbing, cyanosis, edema. Extremities are warm and pink with prompt capillary refill. ASSESSMENT/PLAN: 1. Change in behavior - ICD9: 312.9, ICD10: R46.89 (primary diagnosis) Hard to identify any specific illness. Suspect behavior changes may be medication adjustment. - UA DIP B/O 2. Epistaxis - ICD9: 784.7, ICD10: R04.0 See discharge instructions. 3. Physically aggressive behavior - ICD9: V40.39, ICD10: R46.89 HERNANDO Ramirez Observed: 06/15/2018 Status: COMPLETED Source: [place] 12:00 PM [facility] REPOSITORY Office Visit (FAMPWS) JAYE PAUL ([id number]) 1980 M Date Time Provider Department 06/15/18 12:00 PM Sadaf UP) FAMPWS During your visit today, we recorded the following information about you: Temperature Pulse Blood pressure Weight 98.2 degrees 96/minute 126/82 112.5 kg Saman Paige AYLA 06/15/2018 12:57 PM Signed Has had a couple of nose bleeds this past week. When bleeds did have clots. Reported that left side of face was a little swollen this morning so they put warm compress on. Using PRN Claritin. Eyes are a little red. Have been trying to use vaporizer in his room but recently not wanting to go to room to sleep. Last night did sleep in bed and vaporizer was used. Sadaf Up PA-C 06/15/2018 8:30 PM Signed 38 year old male with c/o nosebleeds off and on over last week. Had two in last day. Usually 10 minutes. Usually hold tissue over nose, head forward. Mom concerned temp up to 99.3F. Behavior more agitated as previous. Seeing neurologist: taking off depakote. Mom worried because of behavior change and elevated temp that something more is going on. No nasal congestion, drip. No cough. Had a day skipped breakfast and lunch which is unusual. No difficulty with urination or stools. HISTORIES FAMILY HISTORY Problem Relation Age of Onset - Cancer Paternal Grandfather esophagus - Lipids Father - Thyroid Mother - Prostate Cancer Maternal Grandfather age 70's - Diabetes Paternal Grandmother - Cancer Father BCC PAST MEDICAL HISTORY Diagnosis Date - Chiari malformation type I (HCC) - Oppositional defiant disorder of childhood or adolescence - Other convulsions SEIZURE - Pure hyperglyceridemia - Unspecified intellectual disabilities PAST SURGICAL HISTORY Procedure Laterality Date - BRONCHOSCOPY 11/2008 Dr. Mccoy - EXTRACTION ERUPTED TOOTH/EXR age 16-18 wisdom teeth Social History Marital status: Single Spouse name: Years of education: Number of children: Social History Main Topics Smoking status: Never Smoker Smokeless tobacco: Never Used Alcohol use: No Drug use: No Sexual activity: No Social History Narrative Neurologist: Dr. Marvin Mccarthy- fax# [phone] ACTIVE PROBLEM LIST Mental Retardation Epilepsy (Hcc) Pure Hyperglyceridemia Obesity, Unspecified Oppositional Defiant Disorder CHIARI I MALFORMATION Physically Aggressive Behavior Gerd With Esophagitis Current Outpatient Prescriptions: divalproex ER (DEPAKOTE ER) 500 mg 24 hr tablet Take 1 tablet by mouth twice daily. Take 500 mg in the morning and 100 mg in the evening. (Patient taking differently: Take 250 mg by mouth once daily. Take in the evening. ) Disp: Rfl: topiramate (TOPAMAX) 25 mg tablet Take 2 tablets by mouth twice daily. (Patient taking differently: Take 150 mg by mouth twice daily. ) Disp: Rfl: QUEtiapine (SEROQUEL) 100 mg tablet Take 50 mg by mouth in the AM, 100 mg in the afternoon, and 1 (100 mg) tablet by mouth in the PM Disp: Rfl: mometasone (ELOCON) 0.1 % cream Apply 1 application to affected area once daily. Disp: 45 g Rfl: 0 cholecalciferol (VITAMIN D) 1,000 unit tab tablet Take 1 tablet by mouth once daily. Disp: 90 tablet Rfl: 3 omeprazole (PRILOSEC) 20 mg capsule TAKE (1) CAPSULE BY MOUTH DAILY. Disp: 30 capsule Rfl: 11 gemfibrozil (LOPID) 600 mg tablet TAKE 1 TABLET BY MOUTH TWICE DAILY BEFORE MEALS Disp: 60 tablet Rfl: 11 chlorhexidine (HIBICLENS) 4 % external liquid Wash entire body from neck down every Monday. Leave on for 5 min. Scrub gently AND Rinse. Disp: 240 mL Rfl: 11 acetaminophen (MAPAP) 325 mg tablet Take 2 tablets by mouth every 6 hours as needed. for pain/fever above 99/headache. May alternate with ibuprofen. Disp: 100 tablet Rfl: 3 PARoxetine (PAXIL) 30 mg tablet Take 30 mg by mouth twice daily. Disp: Rfl: melatonin 3 mg Take 1 tablet by mouth daily at bedtime. May use additional 3 mg as needed. Disp: 90 tablet Rfl: 1 lactulose (DUPHALAC, CONSTULOSE) 10 gram/15 mL solution GIVE 30ML BY MOUTH TWICE DAILY NEEDED IF NO BM IN 2 DAYS Disp: 473 mL Rfl: 0 MAGNESIUM, ALUMINUM HYDROXIDE (MYLANTA ORAL) Take 30 mL by mouth as needed. Disp: Rfl: Ibuprofen 200 mg cap Take 400 mg by mouth every 6 hours as needed. Disp: Rfl: terbinafine HCl (LAMISIL) 1 % cream Apply 1 application to affected area once a week, and may resume daily application if redness and scaling between toes recur Disp: 60 g Rfl: 0 mupirocin 2 % ointment Apply to affected area of the right underarm twice daily as needed. Disp: 44 g Rfl: 0 miconazole (ZEASORB AF) 2 % powder Apply 1 application to affected area as needed (for irritation of the groin and the inferior abdomen.). Disp: 1 Each Rfl: 6 LORazepam 1 mg ORAL tablet Take 1 tablet by mouth every 6 hours as needed. Disp: Rfl: 0 clonazePAM 0.5 mg ORAL tablet Take 1 tablet by mouth twice daily. Disp: Rfl: 0 No current facility-administered medications for this visit. DTAP,TDAP,TD(9 - Tdap) due on 08/24/2017 INFLUENZA(1) due on 05/05/2018 EXAM: BP 126/82 Pulse 96 Temp 36.8 ?C (98.2 ?F) (Tympanic) Wt 112.5 kg (248 lb) BMI 33.63 kg/m? Pleasant adult in no acute distress. Alert and oriented all spheres. Normal affect and cognition. Speech normal. No deficits to learning or comprehension. Skin warm, dry, pink to lips and nailbeds. Normal turgor. Respirations regular and unlabored. HEENT WNL. TM's clear. Nose: white crusts on right distal septum, blood on left distal septum. No lesion or mass. and oropharynx free from injection or lesion. No cervical lymph nodes. Thyroid non-tender, no masses Extrem: no clubbing, cyanosis, edema. Extremities are warm and pink with prompt capillary refill. ASSESSMENT/PLAN: 1. Change in behavior - ICD9: 312.9, ICD10: R46.89 (primary diagnosis) Hard to identify any specific illness. Suspect behavior changes may be medication adjustment. - UA DIP B/O 2. Epistaxis - ICD9: 784.7, ICD10: R04.0 See discharge instructions. 3. Physically aggressive behavior - ICD9: V40.39, ICD10: R46.89 HERNANDO Ramirez PA-C 06/15/2018 3:28 PM Addendum Nosebleeds dripping from the nose are rarely from a serious cause. If a nose bleed occurs again: 1) Lean your head forward, and pinch the tip of the nose (as shown) for a full 9 minutes without letting up on pressure. Time it by a clock, (9 minutes is longer than you might imagine). If you let up to check frequently, it will not allow a clot to form, and will take longer to stop. Do not lean your head backward as this will allow blood to drip down your throat. Blood in the stomach is very nauseating, and will likely make your vomit. 2) After 9 minutes, release pressure. If the nose is still bleeding, apply pressure again for another full 9 minutes by the clock. 3) If bleeding still occurs after the second attempt, place an ice pack on the back of the neck, and reapply pressure for another 9 minutes by the clock. 4) If bleeding continues in spite of these steps, you could choose to continue repeating the steps until bleeding stops, go to the emergency room, or you might try a nasal spray decongestant such as Afrin to help bleeding stop. 5) Once bleeding has stopped, do not remove the clot for several hours. If you blow out the clot, or remove a scabbed area, it is very likely bleeding will continue to reoccur. Most nose bleeds occur because of trauma from blowing or cleaning the nose, dryness in the air, or some other irritation. Nose bleeds from high blood pressure are not common, though blood pressure often is higher immediately after a nose bleed because of anxiety. It is very rare to bleed enough to cause anemia or complications from blood loss. If you are on a blood thinner and can't get the bleed to stop, come in to the office or go to the emergency room. If bleeding continues to recur over a few weeks, come back in for a recheck. Sometimes it is necessary to cauterize an area to get it to fully heal, or there may be something else wrong. Small amount petroleum jelly to external naris or just inside nose at bedtime until issue resolves. Humidification in room will help. Try to keep him from picking. Blow and gently removed crusts. Referring Provider: SELF [200] Allergies As of Date: 06/15/2018 Noted Allergy Reaction CATS 09/17/2010 1 - Mental Status Change DUST 09/17/2010 1 - Mental Status Change EGG 07/09/2012 16 - Unknown Comments: Has been able to take flu shots and eats eggs KEPPRA (LEVETIRACETAM) 09/03/2005 Comments: changes personality LAMICTAL (LAMOTRIGINE) 04/03/2007 Comments: Did not respond well SEASONAL ALLERGIES 10/21/2013 1 - Mental Status Change Comments: Short ragweed, grass cocklebur, vidhya TREES 09/17/2010 1 - Mental Status Change Date Reviewed: 06/15/2018 Reviewed by: Saman Paige LPN - Fully Assessed Reason for Visit: Nose Bleed [204] Primary Visit Diagnosis:Change in behavior [R46.89] Other Visit Diagnoses:Epistaxis [R04.0] Physically aggressive behavior [R46.89] Order(s): VALENTIN B/O [[id number]] Order #: [id number] Prescriptions as of 06/15/2018 Sig: DIVALPROEX ER 500 MG TABLET,E* Take 1 tablet by mouth twice * Patient taking differently: Take 250 mg by mouth once neha* TOPIRAMATE 25 MG TABLET Take 2 tablets by mouth twice* Patient taking differently: Take 150 mg by mouth twice da* QUETIAPINE 100 MG TABLET Take 50 mg by mouth in the AM* MOMETASONE 0.1 % TOPICAL CREAM Apply 1 application to affect* CHOLECALCIFEROL (VITAMIN D3) * Take 1 tablet by mouth once d* OMEPRAZOLE 20 MG CAPSULE,MARICEL* TAKE (1) CAPSULE BY MOUTH NEHA* GEMFIBROZIL 600 MG TABLET TAKE 1 TABLET BY MOUTH TWICE * CHLORHEXIDINE GLUCONATE 4 % T* Wash entire body from neck do* ACETAMINOPHEN 325 MG TABLET Take 2 tablets by mouth every* PAROXETINE 30 MG TABLET Take 30 mg by mouth twice neha* MELATONIN 3 MG TABLET Take 1 tablet by mouth daily * LACTULOSE 10 GRAM/15 ML ORAL * GIVE 30ML BY MOUTH TWICE LINDA* MYLANTA ORAL Take 30 mL by mouth as needed. IBUPROFEN 200 MG CAPSULE Take 400 mg by mouth every 6 * TERBINAFINE HCL 1 % TOPICAL C* Apply 1 application to affect* MUPIROCIN 2 % TOPICAL OINTMENT Apply to affected area of the* MICONAZOLE NITRATE 2 % TOPICA* Apply 1 application to affect* * LORAZEPAM 1 MG TABLET Take 1 tablet by mouth every * * CLONAZEPAM 0.5 MG TABLET Take 1 tablet by mouth twice * Problem List As Of Date 06/15/2018 Noted Resolved Mental retardation [F79] INVALID FOR* Epilepsy (HCC) [G40.909] INVALID FOR* More... PURE HYPERGLYCERIDEMIA [E78.1] INVALID FOR* OBESITY NOS [E66.9] INVALID FOR* Oppositional defiant disorder [F91.3] INVALID FOR* DERMATOPHYTOSIS OF FOOT [B35.3] INVALID FOR*11/23/2007 Routine General Medical Examination at a [facility]*INVALID FOR*04/28/2012 Class: Chronic More... CHIARI I MALFORMATION [G93.5] INVALID FOR* More... Physically aggressive behavior [R46.89] INVALID FOR* GERD with esophagitis [K21.0] INVALID FOR* Other instructions from your clinician: Nosebleeds dripping from the nose are rarely from a serious cause. If a nose bleed occurs again: 1) Lean your head forward, and pinch the tip of the nose (as shown) for a full 9 minutes without letting up on pressure. Time it by a clock, (9 minutes is longer than you might imagine). If you let up to check frequently, it will not allow a clot to form, and will take longer to stop. Do not lean your head backward as this will allow blood to drip down your throat. Blood in the stomach is very nauseating, and will likely make your vomit. 2) After 9 minutes, release pressure. If the nose is still bleeding, apply pressure again for another full 9 minutes by the clock. 3) If bleeding still occurs after the second attempt, place an ice pack on the back of the neck, and reapply pressure for another 9 minutes by the clock. 4) If bleeding continues in spite of these steps, you could choose to continue repeating the steps until bleeding stops, go to the emergency room, or you might try a nasal spray decongestant such as Afrin to help bleeding stop. 5) Once bleeding has stopped, do not remove the clot for several hours. If you blow out the clot, or remove a scabbed area, it is very likely bleeding will continue to reoccur. Most nose bleeds occur because of trauma from blowing or cleaning the nose, dryness in the air, or some other irritation. Nose bleeds from high blood pressure are not common, though blood pressure often is higher immediately after a nose bleed because of anxiety. It is very rare to bleed enough to cause anemia or complications from blood loss. If you are on a blood thinner and can't get the bleed to stop, come in to the office or go to the emergency room. If bleeding continues to recur over a few weeks, come back in for a recheck. Sometimes it is necessary to cauterize an area to get it to fully heal, or there may be something else wrong. Small amount petroleum jelly to external naris or just inside nose at bedtime until issue resolves. Humidification in room will help. Try to keep him from picking. Blow and gently removed crusts. Visit Notes: >> Saman Paige AYLA MonJun 15, 2018 12:51 PM Status: Signed Has had a couple of nose bleeds this past week. When bleeds did have clots. Reported that left side of face was a little swollen this morning so they put warm compress on. Using PRN Claritin. Eyes are a little red. Have been trying to use vaporizer in his room but recently not wanting to go to room to sleep. Last night did sleep in bed and vaporizer was used. Encounter Status:Closed by Sadaf UP PA-C on 06/15/18 PROGRESS Observed: 05/31/2018 Status: COMPLETED Source: [place] 10:26 AM [facility]INIC [facility]IN [place] REPOSITORY [facility] ID: [id number] Author: Sadaf Chirinos (Hernando) Jeovanny Service: (none) Author Type: Physician Senior Quality Assurance Engineer Type: Progress Notes Filed: 05/31/2018 10:46 AM Note Text: 37 year old male with with mother c/o ear infection, sinusitis since labor Day. Put on Augmentin in ED. Finished antibiotic. says ear hurt last night. Some behavioral issues which usually means something is wrong. Mild cough. No fever. Has had a few 99F temps on daily checks. Staring spells, thought process seems lower, seems fatigued. Has had prn lorazepam lately. Also mom concerned had small boil in suprapubic area a few weeks ago examined by Dr. Basilio which she thought might need checking. HISTORIES FAMILY HISTORY Problem Relation Age of Onset - Cancer Paternal Grandfather esophagus - Lipids Father - Thyroid Mother - Prostate Cancer Maternal Grandfather age 70's - Diabetes Paternal Grandmother - Cancer Father BCC PAST MEDICAL HISTORY Diagnosis Date - Chiari malformation type I (HCC) - Oppositional defiant disorder of childhood or adolescence - Other convulsions SEIZURE - Pure hyperglyceridemia - Unspecified intellectual disabilities PAST SURGICAL HISTORY Procedure Laterality Date - BRONCHOSCOPY 11/2008 Dr. Mccoy - EXTRACTION ERUPTED TOOTH/EXR age 16-18 wisdom teeth Social History Marital status: Single Spouse name: Years of education: Number of children: Social History Main Topics Smoking status: Never Smoker Smokeless tobacco: Never Used Alcohol use: No Drug use: No Sexual activity: No Social History Narrative Neurologist: Dr. Marvin Mccarthy- fax# [phone] ACTIVE PROBLEM LIST Mental Retardation Epilepsy (Hcc) Pure Hyperglyceridemia Obesity, Unspecified Oppositional Defiant Disorder CHIARI I MALFORMATION Physically Aggressive Behavior Gerd With Esophagitis Current Outpatient Prescriptions: divalproex ER (DEPAKOTE ER) 500 mg 24 hr tablet Take 1 tablet by mouth twice daily. Take 500 mg in the morning and 100 mg in the evening. (Patient taking differently: Take 250 mg by mouth once daily. Take in the evening. ) Disp: Rfl: topiramate (TOPAMAX) 25 mg tablet Take 2 tablets by mouth twice daily. (Patient taking differently: Take 150 mg by mouth twice daily. ) Disp: Rfl: QUEtiapine (SEROQUEL) 100 mg tablet Take 50 mg by mouth in the AM, 100 mg in the afternoon, and 1 (100 mg) tablet by mouth in the PM Disp: Rfl: mometasone (ELOCON) 0.1 % cream Apply 1 application to affected area once daily. Disp: 45 g Rfl: 0 cholecalciferol (VITAMIN D) 1,000 unit tab tablet Take 1 tablet by mouth once daily. Disp: 90 tablet Rfl: 3 omeprazole (PRILOSEC) 20 mg capsule TAKE (1) CAPSULE BY MOUTH DAILY. Disp: 30 capsule Rfl: 11 gemfibrozil (LOPID) 600 mg tablet TAKE 1 TABLET BY MOUTH TWICE DAILY BEFORE MEALS Disp: 60 tablet Rfl: 11 chlorhexidine (HIBICLENS) 4 % external liquid Wash entire body from neck down every Monday. Leave on for 5 min. Scrub gently AND Rinse. Disp: 240 mL Rfl: 11 acetaminophen (MAPAP) 325 mg tablet Take 2 tablets by mouth every 6 hours as needed. for pain/fever above 99/headache. May alternate with ibuprofen. Disp: 100 tablet Rfl: 3 PARoxetine (PAXIL) 30 mg tablet Take 30 mg by mouth twice daily. Disp: Rfl: melatonin 3 mg Take 1 tablet by mouth daily at bedtime. May use additional 3 mg as needed. Disp: 90 tablet Rfl: 1 lactulose (DUPHALAC, CONSTULOSE) 10 gram/15 mL solution GIVE 30ML BY MOUTH TWICE DAILY NEEDED IF NO BM IN 2 DAYS Disp: 473 mL Rfl: 0 MAGNESIUM, ALUMINUM HYDROXIDE (MYLANTA ORAL) Take 30 mL by mouth as needed. Disp: Rfl: Ibuprofen 200 mg cap Take 400 mg by mouth every 6 hours as needed. Disp: Rfl: terbinafine HCl (LAMISIL) 1 % cream Apply 1 application to affected area once a week, and may resume daily application if redness and scaling between toes recur Disp: 60 g Rfl: 0 mupirocin 2 % ointment Apply to affected area of the right underarm twice daily as needed. Disp: 44 g Rfl: 0 miconazole (ZEASORB AF) 2 % powder Apply 1 application to affected area as needed (for irritation of the groin and the inferior abdomen.). Disp: 1 Each Rfl: 6 LORazepam 1 mg ORAL tablet Take 1 tablet by mouth every 6 hours as needed. Disp: Rfl: 0 clonazePAM 0.5 mg ORAL tablet Take 1 tablet by mouth twice daily. Disp: Rfl: 0 No current facility-administered medications for this visit. DTAP,TDAP,TD(9 - Tdap) due on 08/24/2017 INFLUENZA(1) due on 05/05/2018 EXAM: BP 124/86 Pulse 80 Temp 36.8 ?C (98.2 ?F) (Tympanic) Resp 16 Wt 113.9 kg (251 lb) BMI 34.03 kg/m? Pleasant adult male with flat affect. Behavioral controlled. Seems in no acute distress. Alert and oriented all spheres. Slow responses. Skin warm, dry, pink to lips and nailbeds. Normal turgor. Mother and I examined suprapubic area without evidence of boil. Respirations regular and unlabored. HEENT WNL. TM's clear. Nose and oropharynx free from injection or lesion. No cervical lymph nodes. Thyroid non-tender, no masses Chest CTA. HRRR without murmur or gallop. Abdomen: active bowel sounds throughout, soft, nontender, no masses or organomegaly. No CVAT. Penis circumsized. Testicles descended bilaterally. No masses or nodules. No hernias. Extrem: no clubbing, cyanosis, edema. Extremities are warm and pink with prompt capillary refill. ASSESSMENT/PLAN: 1. Behavioral change - ICD9: 312.9, ICD10: R46.89 (primary diagnosis) Observation. 2. Cough - ICD9: 786.2, ICD10: R05 Worsening, temp 100.5F, wheezing, and worsening in congestion: good Up PA-C CNOV Observed: 05/31/2018 Status: COMPLETED Source: [place] 10:00 AM [facility] REPOSITORY Office Visit (FAMPWS) JAYE PAUL ([id number]) 1980 M Date Time Provider Department 05/31/18 10:00 AM [facility] During your visit today, we recorded the following information about you: Temperature Pulse Respiration Blood pressure 98.2 degrees 80/minute 16/minute 124/86 Weight 113.9 kg Sadaf Up PA-C 05/31/2018 10:46 AM Signed 37 year old male with with mother c/o ear infection, sinusitis since labor Day. Put on Augmentin in ED. Finished antibiotic. says ear hurt last night. Some behavioral issues which usually means something is wrong. Mild cough. No fever. Has had a few 99F temps on daily checks. Staring spells, thought process seems lower, seems fatigued. Has had prn lorazepam lately. Also mom concerned had small boil in suprapubic area a few weeks ago examined by Dr. Basilio which she thought might need checking. HISTORIES FAMILY HISTORY Problem Relation Age of Onset - Cancer Paternal Grandfather esophagus - Lipids Father - Thyroid Mother - Prostate Cancer Maternal Grandfather age 70's - Diabetes Paternal Grandmother - Cancer Father BCC PAST MEDICAL HISTORY Diagnosis Date - Chiari malformation type I (HCC) - Oppositional defiant disorder of childhood or adolescence - Other convulsions SEIZURE - Pure hyperglyceridemia - Unspecified intellectual disabilities PAST SURGICAL HISTORY Procedure Laterality Date - BRONCHOSCOPY 11/2008 Dr. Mccoy - EXTRACTION ERUPTED TOOTH/EXR age 16-18 wisdom teeth Social History Marital status: Single Spouse name: Years of education: Number of children: Social History Main Topics Smoking status: Never Smoker Smokeless tobacco: Never Used Alcohol use: No Drug use: No Sexual activity: No Social History Narrative Neurologist: Dr. Marvin Mccarthy- fax# [phone] ACTIVE PROBLEM LIST Mental Retardation Epilepsy (Hcc) Pure Hyperglyceridemia Obesity, Unspecified Oppositional Defiant Disorder CHIARI I MALFORMATION Physically Aggressive Behavior Gerd With Esophagitis Current Outpatient Prescriptions: divalproex ER (DEPAKOTE ER) 500 mg 24 hr tablet Take 1 tablet by mouth twice daily. Take 500 mg in the morning and 100 mg in the evening. (Patient taking differently: Take 250 mg by mouth once daily. Take in the evening. ) Disp: Rfl: topiramate (TOPAMAX) 25 mg tablet Take 2 tablets by mouth twice daily. (Patient taking differently: Take 150 mg by mouth twice daily. ) Disp: Rfl: QUEtiapine (SEROQUEL) 100 mg tablet Take 50 mg by mouth in the AM, 100 mg in the afternoon, and 1 (100 mg) tablet by mouth in the PM Disp: Rfl: mometasone (ELOCON) 0.1 % cream Apply 1 application to affected area once daily. Disp: 45 g Rfl: 0 cholecalciferol (VITAMIN D) 1,000 unit tab tablet Take 1 tablet by mouth once daily. Disp: 90 tablet Rfl: 3 omeprazole (PRILOSEC) 20 mg capsule TAKE (1) CAPSULE BY MOUTH DAILY. Disp: 30 capsule Rfl: 11 gemfibrozil (LOPID) 600 mg tablet TAKE 1 TABLET BY MOUTH TWICE DAILY BEFORE MEALS Disp: 60 tablet Rfl: 11 chlorhexidine (HIBICLENS) 4 % external liquid Wash entire body from neck down every Monday. Leave on for 5 min. Scrub gently AND Rinse. Disp: 240 mL Rfl: 11 acetaminophen (MAPAP) 325 mg tablet Take 2 tablets by mouth every 6 hours as needed. for pain/fever above 99/headache. May alternate with ibuprofen. Disp: 100 tablet Rfl: 3 PARoxetine (PAXIL) 30 mg tablet Take 30 mg by mouth twice daily. Disp: Rfl: melatonin 3 mg Take 1 tablet by mouth daily at bedtime. May use additional 3 mg as needed. Disp: 90 tablet Rfl: 1 lactulose (DUPHALAC, CONSTULOSE) 10 gram/15 mL solution GIVE 30ML BY MOUTH TWICE DAILY NEEDED IF NO BM IN 2 DAYS Disp: 473 mL Rfl: 0 MAGNESIUM, ALUMINUM HYDROXIDE (MYLANTA ORAL) Take 30 mL by mouth as needed. Disp: Rfl: Ibuprofen 200 mg cap Take 400 mg by mouth every 6 hours as needed. Disp: Rfl: terbinafine HCl (LAMISIL) 1 % cream Apply 1 application to affected area once a week, and may resume daily application if redness and scaling between toes recur Disp: 60 g Rfl: 0 mupirocin 2 % ointment Apply to affected area of the right underarm twice daily as needed. Disp: 44 g Rfl: 0 miconazole (ZEASORB AF) 2 % powder Apply 1 application to affected area as needed (for irritation of the groin and the inferior abdomen.). Disp: 1 Each Rfl: 6 LORazepam 1 mg ORAL tablet Take 1 tablet by mouth every 6 hours as needed. Disp: Rfl: 0 clonazePAM 0.5 mg ORAL tablet Take 1 tablet by mouth twice daily. Disp: Rfl: 0 No current facility-administered medications for this visit. DTAP,TDAP,TD(9 - Tdap) due on 08/24/2017 INFLUENZA(1) due on 05/05/2018 EXAM: BP 124/86 Pulse 80 Temp 36.8 ?C (98.2 ?F) (Tympanic) Resp 16 Wt 113.9 kg (251 lb) BMI 34.03 kg/m? Pleasant adult male with flat affect. Behavioral controlled. Seems in no acute distress. Alert and oriented all spheres. Slow responses. Skin warm, dry, pink to lips and nailbeds. Normal turgor. Mother and I examined suprapubic area without evidence of boil. Respirations regular and unlabored. HEENT WNL. TM's clear. Nose and oropharynx free from injection or lesion. No cervical lymph nodes. Thyroid non-tender, no masses Chest CTA. HRRR without murmur or gallop. Abdomen: active bowel sounds throughout, soft, nontender, no masses or organomegaly. No CVAT. Penis circumsized. Testicles descended bilaterally. No masses or nodules. No hernias. Extrem: no clubbing, cyanosis, edema. Extremities are warm and pink with prompt capillary refill. ASSESSMENT/PLAN: 1. Behavioral change - ICD9: 312.9, ICD10: R46.89 (primary diagnosis) Observation. 2. Cough - ICD9: 786.2, ICD10: R05 Worsening, temp 100.5F, wheezing, and worsening in congestion: recheck HERNANDO Ramirez PA-C 05/31/2018 10:42 AM Signed Get plenty of rest. Force fluids daily with water and juices. Nasal saline spray may help to keep nose open and moist: 2- 3 squirts each side every few hours. This also help to rinse out virus and bacteria causing infection. Cool mist humidifier in room during sleep. May use OTC Tylenol or Ibuprofen as direct for discomfort. For sore throat, warm salt water gargles, Chlorseptic spray, lozenges or other OTC sore throat remedies may help. Decongestants such as plain Sudafed or with expectorant such as Mucinex D may help with nasal stuffiness or facial and sinus pressure. Generics are fine. These are over the counter but require an adult signature. Oxymetolazine nasal decongestants (Afrin, Dristan, Arthur's) may also help (in place of oral decongestants) but should not be used longer than 48-72 hours due to potential rebound congestion. OTC antihistamines such Benadryl (make cause drowsiness) or Zyrtec/ Clariten/ Hermelinda (non-drowsy) may help watery nasal drainage though they are generally not recommended because they dry mucus and make it sticky. The flow of mucus is important to help your body rid the virus. If cough keeps you awake at night, try OTC remedies first, such as Nyquil, Delsym, Arthur's 44 or Mucinex DM. If this doesn't help you sleep, call the office for a prescription. Be careful if you are combining cough and cold medications that you aren't doubling the medicines. If you aren't sure: ask the pharmacist for help. Cough or sneeze into your sleeve to prevent spread of infected secretions. Wash your hands frequently. Try not to cough or sneeze on surfaces others might touch. If symptoms fail to improve in 5-7 days, fever > 100.5F, general worsening, or other concerning symptoms, return to [facility] or Maddy Basilio MD. Referring Provider: SELF [[id number]] Allergies As of Date: 05/31/2018 Noted Allergy Reaction CATS 09/17/2010 1 - Mental Status Change DUST 09/17/2010 1 - Mental Status Change EGG 07/09/2012 16 - Unknown Comments: Has been able to take flu shots and eats eggs KEPPRA (LEVETIRACETAM) 09/03/2005 Comments: changes personality LAMICTAL (LAMOTRIGINE) 04/03/2007 Comments: Did not respond well SEASONAL ALLERGIES 10/21/2013 1 - Mental Status Change Comments: Short ragweed, grass cocklebur, vidhya TREES 09/17/2010 1 - Mental Status Change Date Reviewed: 05/31/2018 Reviewed by: Caleb Caballero LPN - Fully Assessed Reason for Visit: Ear Problem [38] Cmt: follow up of right ear infection. Has been picking at right ear and did point to that ear when asked if ears hurt, with low grade temp on around 99.0 off and on Abscess [1744] Cmt: recheck boil in groin area Primary Visit Diagnosis:Behavioral change [R46.89] Other Visit Diagnosis:Cough [R05] Prescriptions as of 05/31/2018 Sig: DIVALPROEX ER 500 MG TABLET,E* Take 1 tablet by mouth twice * Patient taking differently: Take 250 mg by mouth once neha* TOPIRAMATE 25 MG TABLET Take 2 tablets by mouth twice* Patient taking differently: Take 150 mg by mouth twice da* QUETIAPINE 100 MG TABLET Take 50 mg by mouth in the AM* MOMETASONE 0.1 % TOPICAL CREAM Apply 1 application to affect* CHOLECALCIFEROL (VITAMIN D3) * Take 1 tablet by mouth once d* OMEPRAZOLE 20 MG CAPSULE,MARICEL* TAKE (1) CAPSULE BY MOUTH NEHA* GEMFIBROZIL 600 MG TABLET TAKE 1 TABLET BY MOUTH TWICE * CHLORHEXIDINE GLUCONATE 4 % T* Wash entire body from neck do* ACETAMINOPHEN 325 MG TABLET Take 2 tablets by mouth every* PAROXETINE 30 MG TABLET Take 30 mg by mouth twice neha* MELATONIN 3 MG TABLET Take 1 tablet by mouth daily * LACTULOSE 10 GRAM/15 ML ORAL * GIVE 30ML BY MOUTH TWICE LINDA* MYLANTA ORAL Take 30 mL by mouth as needed. IBUPROFEN 200 MG CAPSULE Take 400 mg by mouth every 6 * TERBINAFINE HCL 1 % TOPICAL C* Apply 1 application to affect* MUPIROCIN 2 % TOPICAL OINTMENT Apply to affected area of the* MICONAZOLE NITRATE 2 % TOPICA* Apply 1 application to affect* * LORAZEPAM 1 MG TABLET Take 1 tablet by mouth every * * CLONAZEPAM 0.5 MG TABLET Take 1 tablet by mouth twice * Problem List As Of Date 05/31/2018 Noted Resolved Mental retardation [F79] INVALID FOR* Epilepsy (HCC) [G40.909] INVALID FOR* More... PURE HYPERGLYCERIDEMIA [E78.1] INVALID FOR* OBESITY NOS [E66.9] INVALID FOR* Oppositional defiant disorder [F91.3] INVALID FOR* DERMATOPHYTOSIS OF FOOT [B35.3] INVALID FOR*11/23/2007 Routine General Medical Examination at a [facility]*INVALID FOR*04/28/2012 Class: Chronic More... CHIARI I MALFORMATION [G93.5] INVALID FOR* More... Physically aggressive behavior [R46.89] INVALID FOR* GERD with esophagitis [K21.0] INVALID FOR* Other instructions from your clinician: Get plenty of rest. Force fluids daily with water and juices. Nasal saline spray may help to keep nose open and moist: 2-3 squirts each side every few hours. This also help to rinse out virus and bacteria causing infection. Cool mist humidifier in room during sleep. May use OTC Tylenol or Ibuprofen as direct for discomfort. For sore throat, warm salt water gargles, Chlorseptic spray, lozenges or other OTC sore throat remedies may help. Decongestants such as plain Sudafed or with expectorant such as Mucinex D may help with nasal stuffiness or facial and sinus pressure. Generics are fine. These are over the counter but require an adult signature. Oxymetolazine nasal decongestants (Afrin, Dristan, Arthur's) may also help (in place of oral decongestants) but should not be used longer than 48-72 hours due to potential rebound congestion. OTC antihistamines such Benadryl (make cause drowsiness) or Zyrtec/ Clariten/ Hermelinda (non-drowsy) may help watery nasal drainage though they are generally not recommended because they dry mucus and make it sticky. The flow of mucus is important to help your body rid the virus. If cough keeps you awake at night, try OTC remedies first, such as Nyquil, Delsym, Arthur's 44 or Mucinex DM. If this doesn't help you sleep, call the office for a prescription. Be careful if you are combining cough and cold medications that you aren't doubling the medicines. If you aren't sure: ask the pharmacist for help. Cough or sneeze into your sleeve to prevent spread of infected secretions. Wash your hands frequently. Try not to cough or sneeze on surfaces others might touch. If symptoms fail to improve in 5-7 days, fever > 100.5F, general worsening, or other concerning symptoms, return to [facility] or Maddy Basilio MD. Encounter Status:Closed by Sadaf UP PA-C on 05/31/18 PROGRESS Observed: 05/16/2018 Status: COMPLETED Source: [place] 2:03 PM [facility] [place] REPOSITORY HNO ID: [id number] Author: Maddy Basilio Service: (none) Author Type: Physician Type: Progress Notes Filed: 05/16/2018 2:18 PM Note Text: No chief complaint on file. HPI: Patient presents today for office visit for follow up. Work up in Er was negative last visit. Was placed on augmentin for a right otitis. Mom had noted he had a boil near the penis as well. It looks better per Mom. No real cough or congestion. Appetite is same. He seems to be better initially. Since off antibiotics he seems to be a little worse. Has had a fever of 100 at home. No nausea or vomiting or diarrhea. No other rashes. Had to use three ativan in the last three days. No seizures. MEDICATIONS: Current Outpatient Prescriptions: divalproex ER (DEPAKOTE ER) 500 mg 24 hr tablet Take 1 tablet by mouth twice daily. Take 500 mg in the morning and 100 mg in the evening. (Patient taking differently: Take 250 mg by mouth once daily. Take in the evening. ) topiramate (TOPAMAX) 25 mg tablet Take 2 tablets by mouth twice daily. (Patient taking differently: Take 150 mg by mouth twice daily. ) QUEtiapine (SEROQUEL) 100 mg tablet Take 50 mg by mouth in the AM, 100 mg in the afternoon, and 1 (100 mg) tablet by mouth in the PM mometasone (ELOCON) 0.1 % cream Apply 1 application to affected area once daily. cholecalciferol (VITAMIN D) 1,000 unit tab tablet Take 1 tablet by mouth once daily. omeprazole (PRILOSEC) 20 mg capsule TAKE (1) CAPSULE BY MOUTH DAILY. gemfibrozil (LOPID) 600 mg tablet TAKE 1 TABLET BY MOUTH TWICE DAILY BEFORE MEALS chlorhexidine (HIBICLENS) 4 % external liquid Wash entire body from neck down every Monday. Leave on for 5 min. Scrub gently AND Rinse. acetaminophen (MAPAP) 325 mg tablet Take 2 tablets by mouth every 6 hours as needed. for pain/fever above 99/headache. May alternate with ibuprofen. PARoxetine (PAXIL) 30 mg tablet Take 30 mg by mouth twice daily. melatonin 3 mg Take 1 tablet by mouth daily at bedtime. May use additional 3 mg as needed. lactulose (DUPHALAC, CONSTULOSE) 10 gram/15 mL solution GIVE 30ML BY MOUTH TWICE DAILY NEEDED IF NO BM IN 2 DAYS MAGNESIUM, ALUMINUM HYDROXIDE (MYLANTA ORAL) Take 30 mL by mouth as needed. Ibuprofen 200 mg cap Take 400 mg by mouth every 6 hours as needed. terbinafine HCl (LAMISIL) 1 % cream Apply 1 application to affected area once a week, and may resume daily application if redness and scaling between toes recur mupirocin 2 % ointment Apply to affected area of the right underarm twice daily as needed. miconazole (ZEASORB AF) 2 % powder Apply 1 application to affected area as needed (for irritation of the groin and the inferior abdomen.). LORazepam 1 mg ORAL tablet Take 1 tablet by mouth every 6 hours as needed. clonazePAM 0.5 mg ORAL tablet Take 1 tablet by mouth twice daily. No current facility-administered medications for this visit. ALLERGIES: ALLERGIES Allergen Reactions - Cats Mental Status Change - Dust Mental Status Change - Egg Unknown Has been able to take flu shots and eats eggs - Keppra [Levetiracet* changes personality - Lamictal [Lamotrigi* Did not respond well - Seasonal Allergies Mental Status Change Short ragweed, grass cocklebur, vidhya - Trees Mental Status Change PAST MEDICAL HISTORY Diagnosis Date - Chiari malformation type I (HCC) - Oppositional defiant disorder of childhood or adolescence - Other convulsions SEIZURE - Pure hyperglyceridemia - Unspecified intellectual disabilities PAST SURGICAL HISTORY Procedure Laterality Date - BRONCHOSCOPY 11/2008 Dr. Mccoy - EXTRACTION ERUPTED TOOTH/EXR age 16-18 wisdom teeth FAMILY HISTORY Problem Relation Age of Onset - Cancer Paternal Grandfather esophagus - Lipids Father - Thyroid Mother - Prostate Cancer Maternal Grandfather age 70's - Diabetes Paternal Grandmother - Cancer Father BCC Social History Marital status: Single Spouse name: Years of education: Number of children: Social History Main Topics Smoking status: Never Smoker Smokeless tobacco: Never Used Alcohol use: No Drug use: No Sexual activity: No Social History Narrative Neurologist: Dr. Marvin Mccarthy- fax# [phone] Reviewed current medications, allergies, past medical history, surgical history, family history and social history today. REVIEW OF SYSTEMS All other reviewed and negative other than HPI. HEALTH MAINTENANCE: Reviewed health maintenance issues today and recommended the following in detail. VITALS: BP 144/82 Pulse 118 Temp 37.3 ?C (99.1 ?F) (Tympanic) Resp 20 Wt 115.6 kg (254 lb 12.8 oz) BMI 34.55 kg/m? Last 4 Encounter Wt Readings: Date: Wt: 05/16/2018 115.6 kg (254 lb 12.8 oz) 02/23/2018 112.9 kg (249 lb) 01/01/2018 109.8 kg (242 lb) 02/09/2017 112.5 kg (248 lb) PHYSICAL EXAMINATION: General appearance: Well appearing, alert, in no acute distress, well-hydrated, well nourished. Skin: Skin color, texture, turgor normal, no suspicious rashes or lesions, groin is normal. Head: Normocephalic, no masses, lesions, tenderness or abnormalities Eyes: Anicteric sclera. Pupils are equally round and reactive to light. Extraocular movements are intact. Ears: External ears normal, canals clear, right tm is still pink. Nose/Sinuses: Nares normal, septum midline, mucosa normal, no drainage or sinus tenderness Oropharynx: Lips, mucosa, and tongue normal, teeth and gums normal, oropharynx normal Neck: supple. No masses Lungs: Lungs clear to auscultation. No wheezing, rhonchi, rales Heart: RRR without murmur, gallop, or rubs. No ectopy Abdomen: Normal abdominal exam, Abdomen soft, non-tender. Bowel sounds normal. No masses, organomegaly Much more comfortable today. Relaxed. ASSESSMENT/PLAN: 1. Acute otitis media, right - ICD9: 382.9, ICD10: H66.91 (primary diagnosis) - Supportive care with plenty of fluids, rest, and analgesia prn. - Follow up in one week if symptoms persist or worsen. - CEFDINIR 300 MG CAPSULE 2. Boil - ICD9: 680.9, ICD10: L02.92 -seems to be better. 3. Low grade fever - ICD9: 780.60, ICD10: R50.9 - UA DIP B/O 4. Physically aggressive behavior - ICD9: V40.39, ICD10: R46.89 - much better. 5. Oppositional defiant disorder - ICD9: 313.81, ICD10: F91.3 - continue to follow 6. Mental retardation - ICD9: 319, ICD10: F79 7. Nonintractable epilepsy without status epilepticus, unspecified epilepsy type (HCC) - ICD9: 345.90, ICD10: G40.909 Maddy Basilio MD CNOV Observed: 05/16/2018 Status: COMPLETED Source: [place] 1:40 PM [facility] REPOSITORY Office Visit (FAMPWS) JAYE PAUL ([id number]) 1980 M Date Time Provider Department 05/16/18 1:40 PM MADDY BASILIO [facility] During your visit today, we recorded the following information about you: Temperature Pulse Respiration Blood pressure 99.1 degrees 118/minute 20/minute 136/86 Weight 115.6 kg Maddy Basilio MD 05/16/2018 2:18 PM Signed No chief complaint on file. HPI: Patient presents today for office visit for follow up. Work up in Er was negative last visit. Was placed on augmentin for a right otitis. Mom had noted he had a boil near the penis as well. It looks better per Mom. No real cough or congestion. Appetite is same. He seems to be better initially. Since off antibiotics he seems to be a little worse. Has had a fever of 100 at home. No nausea or vomiting or diarrhea. No other rashes. Had to use three ativan in the last three days. No seizures. MEDICATIONS: Current Outpatient Prescriptions: divalproex ER (DEPAKOTE ER) 500 mg 24 hr tablet Take 1 tablet by mouth twice daily. Take 500 mg in the morning and 100 mg in the evening. (Patient taking differently: Take 250 mg by mouth once daily. Take in the evening. ) topiramate (TOPAMAX) 25 mg tablet Take 2 tablets by mouth twice daily. (Patient taking differently: Take 150 mg by mouth twice daily. ) QUEtiapine (SEROQUEL) 100 mg tablet Take 50 mg by mouth in the AM, 100 mg in the afternoon, and 1 (100 mg) tablet by mouth in the PM mometasone (ELOCON) 0.1 % cream Apply 1 application to affected area once daily. cholecalciferol (VITAMIN D) 1,000 unit tab tablet Take 1 tablet by mouth once daily. omeprazole (PRILOSEC) 20 mg capsule TAKE (1) CAPSULE BY MOUTH DAILY. gemfibrozil (LOPID) 600 mg tablet TAKE 1 TABLET BY MOUTH TWICE DAILY BEFORE MEALS chlorhexidine (HIBICLENS) 4 % external liquid Wash entire body from neck down every Monday. Leave on for 5 min. Scrub gently AND Rinse. acetaminophen (MAPAP) 325 mg tablet Take 2 tablets by mouth every 6 hours as needed. for pain/fever above 99/headache. May alternate with ibuprofen. PARoxetine (PAXIL) 30 mg tablet Take 30 mg by mouth twice daily. melatonin 3 mg Take 1 tablet by mouth daily at bedtime. May use additional 3 mg as needed. lactulose (DUPHALAC, CONSTULOSE) 10 gram/15 mL solution GIVE 30ML BY MOUTH TWICE DAILY NEEDED IF NO BM IN 2 DAYS MAGNESIUM, ALUMINUM HYDROXIDE (MYLANTA ORAL) Take 30 mL by mouth as needed. Ibuprofen 200 mg cap Take 400 mg by mouth every 6 hours as needed. terbinafine HCl (LAMISIL) 1 % cream Apply 1 application to affected area once a week, and may resume daily application if redness and scaling between toes recur mupirocin 2 % ointment Apply to affected area of the right underarm twice daily as needed. miconazole (ZEASORB AF) 2 % powder Apply 1 application to affected area as needed (for irritation of the groin and the inferior abdomen.). LORazepam 1 mg ORAL tablet Take 1 tablet by mouth every 6 hours as needed. clonazePAM 0.5 mg ORAL tablet Take 1 tablet by mouth twice daily. No current facility-administered medications for this visit. ALLERGIES: ALLERGIES Allergen Reactions - Cats Mental Status Change - Dust Mental Status Change - Egg Unknown Has been able to take flu shots and eats eggs - Keppra [Levetiracet* changes personality - Lamictal [Lamotrigi* Did not respond well - Seasonal Allergies Mental Status Change Short ragweed, grass cocklebur, vidhya - Trees Mental Status Change PAST MEDICAL HISTORY Diagnosis Date - Chiari malformation type I (HCC) - Oppositional defiant disorder of childhood or adolescence - Other convulsions SEIZURE - Pure hyperglyceridemia - Unspecified intellectual disabilities PAST SURGICAL HISTORY Procedure Laterality Date - BRONCHOSCOPY 11/2008 Dr. Mccoy - EXTRACTION ERUPTED TOOTH/EXR age 16-18 wisdom teeth FAMILY HISTORY Problem Relation Age of Onset - Cancer Paternal Grandfather esophagus - Lipids Father - Thyroid Mother - Prostate Cancer Maternal Grandfather age 70's - Diabetes Paternal Grandmother - Cancer Father BCC Social History Marital status: Single Spouse name: Years of education: Number of children: Social History Main Topics Smoking status: Never Smoker Smokeless tobacco: Never Used Alcohol use: No Drug use: No Sexual activity: No Social History Narrative Neurologist: Dr. Marvin Mccarthy- fax# [phone] Reviewed current medications, allergies, past medical history, surgical history, family history and social history today. REVIEW OF SYSTEMS All other reviewed and negative other than HPI. HEALTH MAINTENANCE: Reviewed health maintenance issues today and recommended the following in detail. VITALS: BP 144/82 Pulse 118 Temp 37.3 ?C (99.1 ?F) (Tympanic) Resp 20 Wt 115.6 kg (254 lb 12.8 oz) BMI 34.55 kg/m? Last 4 Encounter Wt Readings: Date: Wt: 05/16/2018 115.6 kg (254 lb 12.8 oz) 02/23/2018 112.9 kg (249 lb) 01/01/2018 109.8 kg (242 lb) 02/09/2017 112.5 kg (248 lb) PHYSICAL EXAMINATION: General appearance: Well appearing, alert, in no acute distress, well-hydrated, well nourished. Skin: Skin color, texture, turgor normal, no suspicious rashes or lesions, groin is normal. Head: Normocephalic, no masses, lesions, tenderness or abnormalities Eyes: Anicteric sclera. Pupils are equally round and reactive to light. Extraocular movements are intact. Ears: External ears normal, canals clear, right tm is still pink. Nose/Sinuses: Nares normal, septum midline, mucosa normal, no drainage or sinus tenderness Oropharynx: Lips, mucosa, and tongue normal, teeth and gums normal, oropharynx normal Neck: supple. No masses Lungs: Lungs clear to auscultation. No wheezing, rhonchi, rales Heart: RRR without murmur, gallop, or rubs. No ectopy Abdomen: Normal abdominal exam, Abdomen soft, non-tender. Bowel sounds normal. No masses, organomegaly Much more comfortable today. Relaxed. ASSESSMENT/PLAN: 1. Acute otitis media, right - ICD9: 382.9, ICD10: H66.91 (primary diagnosis) - Supportive care with plenty of fluids, rest, and analgesia prn. - Follow up in one week if symptoms persist or worsen. - CEFDINIR 300 MG CAPSULE 2. Boil - ICD9: 680.9, ICD10: L02.92 -seems to be better. 3. Low grade fever - ICD9: 780.60, ICD10: R50.9 - UA DIP B/O 4. Physically aggressive behavior - ICD9: V40.39, ICD10: R46.89 - much better. 5. Oppositional defiant disorder - ICD9: 313.81, ICD10: F91.3 - continue to follow 6. Mental retardation - ICD9: 319, ICD10: F79 7. Nonintractable epilepsy without status epilepticus, unspecified epilepsy type (HCC) - ICD9: 345.90, ICD10: G40.909 Maddy Basilio MD Referring Provider: SELF [200] Allergies As of Date: 05/16/2018 Noted Allergy Reaction CATS 09/17/2010 1 - Mental Status Change DUST 09/17/2010 1 - Mental Status Change EGG 07/09/2012 16 - Unknown Comments: Has been able to take flu shots and eats eggs KEPPRA (LEVETIRACETAM) 09/03/2005 Comments: changes personality LAMICTAL (LAMOTRIGINE) 04/03/2007 Comments: Did not respond well SEASONAL ALLERGIES 10/21/2013 1 - Mental Status Change Comments: Short ragweed, grass cocklebur, vidhya TREES 09/17/2010 1 - Mental Status Change Date Reviewed: 05/04/2018 Reviewed by: Jacquie Treadwell Ma - Fully Assessed Primary Visit Diagnosis:Acute otitis media, right [H66.91] Other Visit Diagnoses:Boil [L02.92] Low grade fever [R50.9] Physically aggressive behavior [R46.89] Oppositional defiant disorder [F91.3] Mental retardation [F79] Nonintractable epilepsy without status epilepticus, unspecified epilepsy type (HCC) [G40.909] Order(s):[facility] B/O [[id number]] Order #: [id number] cefdinir (OMNICEF) 300 mg capsuleTake 1 capsule by mouth twice daily for 10 days.Disp: 20 capsuleRfl: 0 Prescriptions as of 05/16/2018 Sig: DIVALPROEX ER 500 MG TABLET,E* Take 1 tablet by mouth twice * Patient taking differently: Take 250 mg by mouth once neha* TOPIRAMATE 25 MG TABLET Take 2 tablets by mouth twice* Patient taking differently: Take 150 mg by mouth twice da* CEFDINIR 300 MG CAPSULE Take 1 capsule by mouth twice* QUETIAPINE 100 MG TABLET Take 50 mg by mouth in the AM* MOMETASONE 0.1 % TOPICAL CREAM Apply 1 application to affect* CHOLECALCIFEROL (VITAMIN D3) * Take 1 tablet by mouth once d* OMEPRAZOLE 20 MG CAPSULE,MARICEL* TAKE (1) CAPSULE BY MOUTH NEHA* GEMFIBROZIL 600 MG TABLET TAKE 1 TABLET BY MOUTH TWICE * CHLORHEXIDINE GLUCONATE 4 % T* Wash entire body from neck do* ACETAMINOPHEN 325 MG TABLET Take 2 tablets by mouth every* PAROXETINE 30 MG TABLET Take 30 mg by mouth twice neha* MELATONIN 3 MG TABLET Take 1 tablet by mouth daily * LACTULOSE 10 GRAM/15 ML ORAL * GIVE 30ML BY MOUTH TWICE LINDA* MYLANTA ORAL Take 30 mL by mouth as needed. IBUPROFEN 200 MG CAPSULE Take 400 mg by mouth every 6 * TERBINAFINE HCL 1 % TOPICAL C* Apply 1 application to affect* MUPIROCIN 2 % TOPICAL OINTMENT Apply to affected area of the* MICONAZOLE NITRATE 2 % TOPICA* Apply 1 application to affect* * LORAZEPAM 1 MG TABLET Take 1 tablet by mouth every * * CLONAZEPAM 0.5 MG TABLET Take 1 tablet by mouth twice * Problem List As Of Date 05/16/2018 Noted Resolved Mental retardation [F79] INVALID FOR* Epilepsy (HCC) [G40.909] INVALID FOR* More... PURE HYPERGLYCERIDEMIA [E78.1] INVALID FOR* OBESITY NOS [E66.9] INVALID FOR* Oppositional defiant disorder [F91.3] INVALID FOR* DERMATOPHYTOSIS OF FOOT [B35.3] INVALID FOR*11/23/2007 Routine General Medical Examination at [facility]*INVALID FOR*04/28/2012 Class: Chronic More... CHIARI I MALFORMATION [G93.5] INVALID FOR* More... Physically aggressive behavior [R46.89] INVALID FOR* GERD with esophagitis [K21.0] INVALID FOR* Prescriptions ordered this encounter Disp Refills Start End CEFDINIR 300 MG CAPSULE 20 c* 0 05/16/2018 05/26/2018 Route: ORAL Sig: Take 1 capsule by mouth twice daily for 10 days. Letter Text [place] [facility] [address], [place] [address] Jaye Paul [address] [place] [address] 4 [facility] [address] Clinic #: [id number] 05/16/2018 Off work 05/16 and 05/17. May return to work on 05/19 Sincerely: Maddy Basilio MD Encounter Status:Closed by MADDY BASILIO MD on 05/16/18 EMERGENCY DEPARTMENT Observed: 05/04/2018 Status: F Source: [place] SUMMARY 11:38 PM [facility] Medical Records Department [address] [place] [address] [place] [address] Emergency Department Summary 05/04/182020 MR#: [id number] Acct: [id number] Name: JAYE PAUL Rep #: [id number] : 1980 37 From: Michele Bianchi MD PCP: Maddy Basilio MD Status: DEP ER - ER Visit Summary Date of Service: 05/04/18 Chief Complaint: Issues History of Present Illness: The patient is a 37 M who resides in a fdc. He is here with his mother. He has had some behavioral issues today. He is mostly nonverbal, and so history is difficult. Staff at his fdc have noted low-grade fevers, swollen glands, and he has been complaining of abdominal pain. He has been treated with Motrin and Ativan, and seems to be improved. Physical Examination: Blood pressure 158/118. Temperature 99.9. Heart rate 134 and respiratory rate 28. 99% on room air. Patient is sitting comfortably. No acute distress. HEENT exam unremarkable except for erythema and bulging to his right TM. No lymphadenopathy. Good range of motion of his neck. Nontender. Heart tachycardic but regular. Lungs clear. Abdomen soft, nontender, nondistended, normal bowel sounds. Extremities nontender with no edema. Skin appears normal in color. Test Results: CBC normal. BMP unremarkable. Urinalysis negative. Chest x-ray showed no acute findings. Alcohol negative. Tox screen pending. Emergency Department Course and Treatment: Patient presents with his mother and staff from the fdc. He has had behavioral issues today, and they are concerned for a medical cause, possibly infection. They took him to his primary doctor, who referred him here to the emergency department. Patient has signs of an ear infection. This may be causing his fevers. He has been calm and cooperative here. He did not require psychiatric medication. His workup was all fairly unremarkable. Repeat heart rate was 104. He is afebrile. His abdomen remains soft and nontender. His behavior is appropriate, and his mother does not want psychiatric hospitalization. From a medical standpoint, I believe he is appropriate for outpatient therapy. Will treat with Augmentin. Continue Motrin and Tylenol as needed. Monitor for new or worsening symptoms. I advised her to bring him back if he has further behavioral issues. Treatment Plan: As above Disposition: Discharged Impression: 1. Right acute otitis media This note was generated with Socialiteation software. It may contain incorrect words, spelling, and punctuation that were not noted in review of the chart prior to signing ED Disposition - Plan for ED Patient: Chief Complaint: Other, Pain/Inj Referrals: Maddy Basilio MD [Primary Care Provider] - What to do if you have Problems For any increased pain, shortness of breath, bleeding, nausea or vomiting, chest pain, or any unexpected problems, contact your Primary Care Provider. Call [facility] ([phone]) or report to the closest Emergency Room. Call 911 if necessary. 05/04/182337 <Electronically signed by Michele Bianchi MD> Date Michele Bianchi MD Cosigner Signature (If Indicated): Date CC: Maddy Basilio MD DISCHARGE INSTRUCTION Observed: 05/04/2018 Status: F Source: [place] 11:38 PM [facility] Medical Records Department [address] [place] [address] Discharge Instruction 05/04/182025 MR#: [id number] Acct: [id number] Name: JAYE PAUL Rep #: [id number] : 1980 37 From: Michele Bianchi MD PCP: Maddy Basilio MD Status: [facility] ER ED Disposition - Plan for ED Patient: Chief Complaint: Other, Pain/Inj Instructions: ED Otitis Media Serous Adult Prescriptions: Amoxicillin/Potassium Clav [Augmentin 875-125 Tablet] 1 ea PO BID #20 tab Referrals: Maddy Basilio MD [Primary Care Provider] - What to do if you have Problems For any increased pain, shortness of breath, bleeding, nausea or vomiting, chest pain, or any unexpected problems, contact your Primary Care Provider. Call [facility] ([phone]) or report to the closest Emergency Room. Call 911 if necessary. 05/04/182337 <Electronically signed by Michele Bianchi MD> Date Michele Bianchi MD Cosigner Signature (If Indicated): Date CC: Maddy Basilio MD PROGRESS Observed: 05/04/2018 Status: COMPLETED Source: [place] 9:27 PM [facility] REPOSITORY O ID: [id number] Author: Maddy Basilio Service: (none) Author Type: Physician Type: Progress Notes Filed: 05/04/2018 9:30 PM Note Text: Patient not examined today. Brought in for agitation. Patient was aggressive towards myself and staff members. Discussed with Mother. Given behaviors and that fact that I can not even approach him, I think an ER visit is more appropriate. She gave him an ativan and once he was calm enough to leave the office she transported to the office. URINE DRUG SCREEN Collected: 05/04/2018 Status: F Source: [place] ([facility]ISTA) 7:30 PM [facility] Order Comment: Order Date: 05/04/18 TYPE CODE TESTS RESULT OUT OF RANGE REFERENCE UNITS LAB L505.0075 TO BE Normal CONFIRMED Result Comment: CONFIRMATORY TESTING FOR ALL POSITIVE URINE DRUG SCREEN RESULTS WILL ONLY BE SENT OUT UPON PHYSICIAN ORDER. VISTA Urine Drug Screen methods provide only preliminary analytical test results. A more specific alternate chemical method must be used in order to obtain a confirmed analytical result. Gas chromatography/mass spectrometery (GC/MS) is the preferred confirmatory method. Clinical consideration and professional judgement should be applied to any drug of abuse test result, particularly when preliminary positive results are used. URINE TCA TESTING MUST BE ORDERED SEPARATELY. USE TEST MNEMONIC: [facility] LAB L505.5005 VISTA UDS PH 7 Normal LAB L505.5015 <1000 ng/mL AMPHETAMINES Normal NEGATIVE LAB L505.5025 < 200 ng/mL BARBITIURATES Normal NEGATIVE LAB L505.5035 < 200 ng/mL BENZODIAZIPINE Normal NEGATIVE LAB L505.5045 < 300 ng/mL COCAINE Normal NEGATIVE LAB L505.5055 < 500 ng/mL ECSTACY Normal NEGATIVE LAB L505.5065 < 300 ng/mL METHADONE Normal NEGATIVE LAB L505.5075 < 300 ng/mL OPIATES Normal NEGATIVE LAB L505.5085 < 25 ng/mL PCP Normal NEGATIVE LAB L505.5095 < 50 ng/mL THC Normal NEGATIVE Performed By: #### L505.5000 #### [facility] [address] [facility] [address]. [place], [place], [address] URINALYSIS, COMPLETE Collected: 05/04/2018 Status: F Source: [place] 7:30 PM [facility] Order Comment: Order Date: 05/04/18 How was Urine Obtained? CLEAN CATCH TYPE CODE TESTS RESULT OUT OF RANGE REFERENCE UNITS LAB L400.3000 Yellow COLOR Normal Yellow LAB L400.3050 Clear Normal CLARITY Clear LAB L400.3200 Normal mg/dl Normal GLUCOSE, UR Normal LAB L400.3300 Negative mg/dL Normal BILIRUBIN URINE Negative LAB L400.3400 Negative mg/dl Normal KETONE UR Negative LAB L400.3465 1.002-1.030 Normal SP.GR. DIPSTX 1.010 LAB L400.3550 5.0 - 8.0 pH UR Normal 7.0 LAB L400.3600 Negative mg/dl PROT Normal DIPSTX Negative LAB L400.3700 Normal mg/dl Normal UROBILI Normal LAB L400.3750 Negative Normal NITRITE UR Negative LAB L400.3780 Negative /ul Normal OCCULT BLOOD-UR Negative LAB L400.3800 Negative /ul LEUK Normal ESTERASE Negative LAB L400.4050 0-5 /hpf WBC Normal 0-5 SEEN LAB L400.4100 0-5 /hpf Normal RBC-UA 0-5 SEEN LAB L400.4150 0-5 /hpf SQUAM 0 Normal EPI SEEN LAB L400.4300 None Seen /hpf 0 Normal BACTERIA SEEN LAB L400.4350 <or=2+ /hpf 0 Normal MUCUS, URINE SEEN Performed By: #### L400.0001 #### [facility] [address] [place], [place], [address] CBC W/DIFF, AUTOMATED Collected: 05/04/2018 Status: F Source: [place] 6:30 PM [facility] TYPE CODE TESTS RESULT OUT OF RANGE REFERENCE UNITS LAB L100.1000 4.4-11.0 K/mm3 Normal WBC 7.8 LAB L100.1200 4.6-6.2 M/mm3 Normal RBC 4.63 LAB L100.1300 13.0-16.5 g/dl Normal HGB 14.9 LAB L100.1400 40-54 % Normal HCT 43.8 LAB L100.1500 80-94 fL High MCV 94.6 LAB L100.1600 27.0-32.0 pg High MCH 32.2 LAB L100.1700 32-36 g/gl Normal MCHC 34.0 LAB L100.1810 11.6-14.6 % Normal RDW CV 12.5 LAB L100.1820 35.1-43.9 fl Normal RDW SD 42.7 LAB L100.1900 150-450 K/mm3 Normal PLT 168 LAB L100.2000 6.2-12.0 fl Normal MPV 10.6 LAB L100.2100 47-70 % Normal NEUT% 54.2 LAB L100.2200 19-41 % Normal LY% 32.9 LAB L100.2300 0-10 % High MONO% 10.8 LAB L100.2400 0-5 % Normal EO% 1.7 LAB L100.2500 0-1 % Normal BASO% 0.3 LAB L100.2550 0.0-0.9 % Normal IM GRAN % 0.100 Result Comment: IG% - Immature Granulocytes (promyelocytes, myelocytes and metamyelocytes) > 1% indicates that a LEFT SHIFT is Present. LAB L100.2620 2.0-7.7 X10 3/uL Normal Absolute Neut 4.3 LAB L100.2720 0.83-4.51 X10 3/ul Normal Absolute Lymph 2.58 Performed By: #### L100.0100 #### [facility] [address] [place], [address] COMPREHENSIVE METABOLIC Collected: 05/04/2018 Status: F Source: [facility] 6:30 PM [facility] TYPE CODE TESTS RESULT OUT OF RANGE REFERENCE UNITS LAB L501.0100 74-106 mg/dL High GLU 114 Result Comment: Fasting Glucose result from 100 to 125 mg/dL suggests IMPAIRED HOMEOSTASIS per A.D.A. criteria. Please note revised GLUCOSE reference range effective 2017. LAB L501.1000 7-18 mg/dL Normal BUN 9 LAB L501.1100 0.70-1.30 mg/dL Normal CREAT,SERUM 0.85 Result Comment: The validity of the calculated GFR AND GFRAA in patients over 70 years has not been determined. Clinical correlation is essential. LAB L501.1110 >60 mL/min Normal EST GFR 107 Result Comment: Non- GFR Calc LAB L501.1115 >60 mL/min Normal EST GFR - AA 130 Result Comment: GFR Calc LAB L501.1255 ml/min Normal Estimated CRCL 138.34 LAB L501.1300 10-20 RATIO BUN/CRE Normal 10.6 LAB L501.1500 6.4-8. g/dL High 2 T PROT 8.3 LAB L501.1800 3.2-5. g/dL 0 ALB Normal 4.2 LAB L501.1950 2.2-4. g/dL 2 GLOB Normal 4.1 LAB L501.2000 0.9-2. RATIO 4 A/G Normal 1.0 LAB L501.2200 8.5-10 mg/dL .1 CA Normal 9.1 LAB L501.4100 15-37 U/L AST Normal 20 LAB L501.4305 45-117 U/L ALK P Normal 72 LAB L501.4405 16-61 U/L ALT Normal 46 LAB L501.4600 0.20-1 mg/dL .00 T BILI Normal 0.30 LAB L501.5300 136-14 mmol/L 5 NA Normal 141 LAB L501.5600 3.5-5. mmol/L 1 K Normal 3.5 LAB L501.5900 98-107 mmol/L CL Normal 106 LAB L501.6100 21.0-3 mmol/L 2.0 CO2 Normal 23.0 LAB L501.6200 5-15 GAP Normal 12 Performed By: #### L500.4050 #### [facility] [address] [place], [place], [address] ALCOHOL, BLOOD Collected: 05/04/2018 Status: F Source: [place] ([facility])-SERUM 6:30 PM [facility] TYPE CODE TESTS RESULT OUT OF RANGE REFERENCE UNITS LAB L501.9100 mg/dL Normal SERUM 9.0 ETOH Result Comment: The serum:whole blood ethanol ratio is approximately 1.14 and varies slightly with hematocrit. Medical Alcohol reference interval and critical value in non-tolerant individuals; 50 - 100 Impairment 100 Intoxication 100 - 250 Severe Poisoning 250 - 400 Deep/possible fatal coma Performed By: #### L501.9100 #### [facility] [address] [place], [address] CHEST 1 VIEW Observed: 05/04/2018 Status: F Source: [place] (PORTABLE) 6:27 PM [facility] Imaging Services [address] [place] [address] Chest 1 View (Portable) MR#: [id number] Acct: [id number] Name: JAYE PAUL Rep #: [id number] : 1980 M 37 From: Zee Gomez MD PCP: Maddy Basilio MD Status: PRE ER Study: Chest 1 View (Portable) Date of Exam: 05/04/18 Exam# [id number] Ordering Dr: Michele Bianchi MD STUDY: X-RAY CHEST REASON FOR EXAM: Male, 37 years old. Violent outbursts. TECHNIQUE: Single frontal view of the chest. COMPARISON: None. FINDINGS: There are low lung volumes. No focal consolidation is visualized. Normal size heart. Normal mediastinum and yusef. Normal visualized pulmonary arteries. Normal visualized aortic arch and descending thoracic aorta. Normal visualized thoracic spine. Normal visualized ribs, clavicles, and shoulders. There is no demonstrated abnormality of the visualized soft tissue structures of the upper abdomen. RAD/Chest 1 View (Portable) IMPRESSION: No acute cardiopulmonary process. Electronically Signed: Zee Gomez MD at 18:42 EDT Tel , Service support , CC: Michele Bianchi MD; Maddy Basilio MD Employee Relations Advisor: Signed CNOV Observed: 05/04/2018 Status: COMPLETED Source: [place] 3:40 PM [facility] REPOSITORY Office Visit (FAMPWS) JAYE PAUL ([id number]) 1980 M Date Time Provider Department 05/04/18 3:40 PM MADDY BASILIO During your visit today, we recorded the following information about you: Maddy Basilio MD 05/04/2018 9:30 PM Signed Patient not examined today. Brought in for agitation. Patient was aggressive towards myself and staff members. Discussed with Mother. Given behaviors and that fact that I can not even approach him, I think an ER visit is more appropriate. She gave him an ativan and once he was calm enough to leave the office she transported to the office. Referring Provider: SELF [200] Allergies As of Date: 05/04/2018 Noted Allergy Reaction CATS 09/17/2010 1 - Mental Status Change DUST 09/17/2010 1 - Mental Status Change EGG 07/09/2012 16 - Unknown Comments: Has been able to take flu shots and eats eggs KEPPRA (LEVETIRACETAM) 09/03/2005 Comments: changes personality LAMICTAL (LAMOTRIGINE) 04/03/2007 Comments: Did not respond well SEASONAL ALLERGIES 10/21/2013 1 - Mental Status Change Comments: Short ragweed, grass cocklebur, vidhya TREES 09/17/2010 1 - Mental Status Change Date Reviewed: 05/04/2018 Reviewed by: Jacquie Treadwell Ma - Fully Assessed Reason for Visit: Mood [1090] Pain [78] Primary Visit Diagnosis:Agitation [R45.1] Prescriptions as of 05/04/2018 Sig: DIVALPROEX ER 500 MG TABLET,E* Take 1 tablet by mouth twice * TOPIRAMATE 25 MG TABLET Take 2 tablets by mouth twice* QUETIAPINE 100 MG TABLET Take 50 mg by mouth in the AM* MOMETASONE 0.1 % TOPICAL CREAM Apply 1 application to affect* CHOLECALCIFEROL (VITAMIN D3) * Take 1 tablet by mouth once d* OMEPRAZOLE 20 MG CAPSULE,MARICEL* TAKE (1) CAPSULE BY MOUTH NEHA* GEMFIBROZIL 600 MG TABLET TAKE 1 TABLET BY MOUTH TWICE * CHLORHEXIDINE GLUCONATE 4 % T* Wash entire body from neck do* ACETAMINOPHEN 325 MG TABLET Take 2 tablets by mouth every* PAROXETINE 30 MG TABLET Take 30 mg by mouth twice neha* MELATONIN 3 MG TABLET Take 1 tablet by mouth daily * LACTULOSE 10 GRAM/15 ML ORAL * GIVE 30ML BY MOUTH TWICE LINDA* MYLANTA ORAL Take 30 mL by mouth as needed. IBUPROFEN 200 MG CAPSULE Take 400 mg by mouth every 6 * TERBINAFINE HCL 1 % TOPICAL C* Apply 1 application to affect* MUPIROCIN 2 % TOPICAL OINTMENT Apply to affected area of the* MICONAZOLE NITRATE 2 % TOPICA* Apply 1 application to affect* * LORAZEPAM 1 MG TABLET Take 1 tablet by mouth every * * CLONAZEPAM 0.5 MG TABLET Take 1 tablet by mouth twice * Problem List As Of Date 05/04/2018 Noted Resolved Mental retardation [F79] INVALID FOR* Epilepsy (HCC) [G40.909] INVALID FOR* More... PURE HYPERGLYCERIDEMIA [E78.1] INVALID FOR* OBESITY NOS [E66.9] INVALID FOR* OPPOSITIONAL DEFIANT DISORDER [F91.3] INVALID FOR* DERMATOPHYTOSIS OF FOOT [B35.3] INVALID FOR*11/23/2007 Routine General Medical Examination at [facility]*INVALID FOR*04/28/2012 Class: Chronic More... CHIARI I MALFORMATION [G93.5] INVALID FOR* More... Physically aggressive behavior [R46.89] INVALID FOR* GERD with esophagitis [K21.0] INVALID FOR* Encounter Status:Closed by MADDY BASILIO MD on 05/04/18 CBC AND DIFFERENTIAL Collected: 04/21/2018 Status: F Source: [place] 8:26 AM [facility] REPOSITORY TYPE CODE TESTS RESULT OUT OF REFERENCE UNITS RANGE LAB WBC 3.70-11.00 k/uL WBC 7.00 LAB RBC 4.20-6.00 m/uL RBC 4.81 LAB HGB 13.0-17.0 g/dL Hemoglobin 15.7 LAB HCT 39.0-51.0 % Hematocrit 47.4 LAB MCV 80.0-100.0 fL MCV 98.5 LAB MCH 26.0-34.0 pG MCH 32.6 LAB MCHC 30.5-36.0 g/dL MCHC 33.1 LAB RDWCV 11.5-15.0 % RDW-CV 12.5 LAB PLTCT 150-400 k/uL Platelet Count 209 LAB MPV 9.0-12.7 fL MPV 11.7 LAB ANEUT % Neut% 37.7 LAB AANEUT 1.45-7.50 k/uL Abs Neut 2.63 LAB ALYMP % Lymph% 52.3 LAB AALYMP 1.00-4.00 k/uL Abs Lymph 3.66 LAB AMONO % [place]% 9.4 LAB AAMONO <0.87 k/uL Abs [place] 0.66 LAB AEOS % Eosin% 0.0 LAB AAEOS <0.46 k/uL Abs Eosin <0.03 LAB ABASO % Baso% 0.6 LAB AABASO <0.11 k/uL Abs Baso 0.04 LAB AUNRBC 0 /100 WBC NRBCs 0.0 LAB ABNRBC <0.01 k/uL Absolute nRBC <0.01 LAB DTYP DTYPE Auto Diff Performed By: #### CBCDIF, CMP, NH3, TOPIR #### [facility] [address] [place] [address] COMP METABOLIC PANEL Collected: 04/21/2018 Status: F Source: [place] 8:26 AM [facility] [place] REPOSITORY TYPE CODE TESTS RESULT OUT OF REFERENCE UNITS RANGE LAB TP 6.3-8.0 g/dL Protein, Total 7.9 LAB ALB 3.9-4.9 g/dL Albumin 4.7 LAB CA 8.5-10.2 mg/dL Calcium, Total 9.9 LAB TBIL 0.2-1.3 mg/dL Bilirubin, Total 0.3 LAB ALKP 36-108 U/L Alkaline Phosphatase 70 LAB AST 14-40 U/L AST 28 LAB GLU 74-99 mg/dL Glucose 92 Result Comment: The [place] [employer] (ADA) provides guidance for cutoff values for fasting glucose and random glucose. The ADA defines fasting as no caloric intake for at least 8 hours. Fas ting plasma glucose results between 100 to 125 mg/dL indicate increased risk for diabetes (prediabetes). Fasting plasma glucose results greater than or equal to 126 mg/dL meet the criteria for diagnosis of diabetes. In the absence of unequivocal hyperglycemia, results should be confirmed by repeat testing. In a patient with classic symptoms of hyperglycemia or hyperglycemic crisis, random plasma glucose results greater than or equal to 200 mg/dL meet the criteria for diagnosis of diabetes. Reference: Standards of Medical Care in Diabetes 2016, [place] [employer]. Diabetes Care. 2016.39(Suppl 1). LAB BUN 9-24 mg/dL BUN 10 LAB CRET 0.73-1.22 mg/dL Creatinine 0.75 LAB NA 136-144 mmol/L Sodium 142 LAB K 3.7-5.1 mmol/L Potassium 4.3 LAB CL 97-105 mmol/L Chloride 103 LAB CO2 22-30 mmol/L CO2 24 LAB AGAP 9-18 mmol/L Anion Gap 15 LAB ALT 10-54 U/L ALT 38 LAB GFRAA eGFR- Amer. >60 LAB GFRNAA . eGFR-All Other Races >60 Result Comment: eGFR (Estimated GFR) Units of measure: mL/min/1.73 meters squared eGFR is derived from the reexpressed MDRD Study equation using the following parameters: serum creatinine, age, gender and race. The creatinine assay has been calibrated to be traceable to IDMS. An eGFR <60 mL/min/1.73m2 for >3 months is consistent with chronic kidney disease. Refer to KDOQI guidelines for clinical interpretation. In patients with unstable renal function, e.g. those with acute kidney injury, the eGFR may not accurately reflect actual GFR. Performed By: #### CBCDIF, CMP, NH3, TOPIR #### [facility] [address] [place] [id number] AMMONIA Collected: 04/21/2018 Status: F Source: [place] 8:26 AM [facility] REPOSITORY TYPE CODE TESTS RESULT OUT OF REFERENCE UNITS RANGE LAB NH3 16-60 umol/L High Ammonia 66 Performed By: #### CBCDIF, CMP, NH3, TOPIR #### [facility] [address] [place] [id number] TOPIRAMATE Collected: 04/21/2018 Status: F Source: [place] 8:26 AM [facility] REPOSITORY TYPE CODE TESTS RESULT OUT OF REFERENCE UNITS RANGE LAB TOPIR 5.0-20.0 ug/mL Low Topiramate 4.8 Performed By: #### CBCDIF, CMP, NH3, TOPIR #### [facility] [address] [place], [place] [address] CBC AND DIFFERENTIAL Collected: 02/24/2018 Status: F Source: [place] 7:55 AM [facility] REPOSITORY TYPE CODE TESTS RESULT OUT OF REFERENCE UNITS RANGE LAB WBC 3.70-11.00 k/uL WBC 6.67 LAB RBC 4.20-6.00 m/uL RBC 4.76 LAB HGB 13.0-17.0 g/dL Hemoglobin 15.4 LAB HCT 39.0-51.0 % Hematocrit 46.9 LAB MCV 80.0-100.0 fL MCV 98.5 LAB MCH 26.0-34.0 pG MCH 32.4 LAB MCHC 30.5-36.0 g/dL MCHC 32.8 LAB RDWCV 11.5-15.0 % RDW-CV 13.2 LAB PLTCT 150-400 k/uL Platelet Count 180 LAB MPV 9.0-12.7 fL MPV 11.7 LAB ANEUT % Neut% 32.2 LAB AANEUT 1.45-7.50 k/uL Abs Neut 2.14 LAB ALYMP % Lymph% 53.7 LAB AALYMP 1.00-4.00 k/uL Abs Lymph 3.58 LAB AMONO % [place]% 9.9 LAB AAMONO <0.87 k/uL Abs [place] 0.66 LAB AEOS % Eosin% 3.3 LAB AAEOS <0.46 k/uL Abs Eosin 0.22 LAB ABASO % Baso% 0.9 LAB AABASO <0.11 k/uL Abs Baso 0.06 LAB AUNRBC 0 /100 WBC NRBCs 0.0 LAB ABNRBC <0.01 k/uL Absolute nRBC <0.01 LAB DTYP DTYPE Auto Diff Performed By: #### CBCDIF, CMP, NH3, HBA1C, TOPIR #### [facility] [address] [place], [place] [address] COMP METABOLIC PANEL Collected: 02/24/2018 Status: F Source: [place] 7:55 AM [facility] REPOSITORY TYPE CODE TESTS RESULT OUT OF REFERENCE UNITS RANGE LAB TP 6.3-8.0 g/dL Protein, Total 7.8 LAB ALB 3.9-4.9 g/dL Albumin 4.6 LAB CA 8.5-10.2 mg/dL Calcium, Total 9.9 LAB TBIL 0.2-1.3 mg/dL Bilirubin, Total 0.3 LAB ALKP 36-108 U/L Alkaline Phosphatase 64 LAB AST 14-40 U/L AST 28 LAB GLU 74-99 mg/dL Glucose 84 Result Comment: The [place] Diabetes [employer] (ADA) provides guidance for cutoff values for fasting glucose and random glucose. The ADA defines fasting as no caloric intake for at least 8 hours. Fas ting plasma glucose results between 100 to 125 mg/dL indicate increased risk for diabetes (prediabetes). Fasting plasma glucose results greater than or equal to 126 mg/dL meet the criteria for diagnosis of diabetes. In the absence of unequivocal hyperglycemia, results should be confirmed by repeat testing. In a patient with classic symptoms of hyperglycemia or hyperglycemic crisis, random plasma glucose results greater than or equal to 200 mg/dL meet the criteria for diagnosis of diabetes. Reference: Standards of Medical Care in Diabetes 2016, [place] [employer]. Diabetes Care. 2016.39(Suppl 1). LAB BUN 9-24 mg/dL BUN 12 LAB CRET 0.73-1.22 mg/dL Creatinine Low 0.68 LAB NA 136-144 mmol/L Sodium 140 LAB K 3.7-5.1 mmol/L Potassium 4.1 LAB CL 97-105 mmol/L Chloride 104 LAB CO2 22-30 mmol/L CO2 24 LAB AGAP 9-18 mmol/L Anion Gap 12 LAB ALT 10-54 U/L ALT 31 LAB GFRAA eGFR- Amer. >60 LAB GFRNAA . eGFR-All Other Races >60 Result Comment: eGFR (Estimated GFR) Units of measure: mL/min/1.73 meters squared eGFR is derived from the reexpressed MDRD Study equation using the following parameters: serum creatinine, age, gender and race. The creatinine assay has been calibrated to be traceable to IDMS. An eGFR <60 mL/min/1.73m2 for >3 months is consistent with chronic kidney disease. Refer to KDOQI guidelines for clinical interpretation. In patients with unstable renal function, e.g. those with acute kidney injury, the eGFR may not accurately reflect actual GFR. Performed By: #### CBCDIF, CMP, NH3, HBA1C, TOPIR #### [place] [id number] [place] [address] AMMONIA Collected: 02/24/2018 Status: F Source: [place] 7:55 AM [facility] REPOSITORY TYPE CODE TESTS RESULT OUT OF REFERENCE UNITS RANGE LAB NH3 16-60 umol/L High Ammonia 69 Performed By: #### CBCDIF, CMP, NH3, HBA1C, TOPIR #### [place] [address] HEMOGLOBIN A1C Collected: 02/24/2018 Status: F Source: [place] 7:55 AM [facility] REPOSITORY TYPE CODE TESTS RESULT OUT OF REFERENCE UNITS RANGE LAB HGBA1C 4.3-5.6 % Hemoglobin A1c 5.5 LAB HBA0 mg/dL Est. Average Glucose 111 Result Comment: eAG: (Estimated average glucose) is a calculated value from HgbA1c and is order entry representative of the average blood glucose level in the last 2-3 month period. Performed By: #### CBCDIF, CMP, NH3, HBA1C, TOPIR #### [place] [address] TOPIRAMATE Collected: 02/24/2018 Status: F Source: [place] 7:55 AM [facility] REPOSITORY TYPE CODE TESTS RESULT OUT OF REFERENCE UNITS RANGE LAB TOPIR 5.0-20.0 ug/mL Low Topiramate 2.5 Performed By: #### CBCDIF, CMP, NH3, HBA1C, TOPIR #### [place] [address] PROGRESS Observed: 02/23/2018 Status: COMPLETED Source: [place] 3:46 PM [facility] REPOSITORY HNO ID: [id number] Author: Maddy Basilio Service: (none) Author Type: Physician Type: Progress Notes Filed: 02/23/2018 4:02 PM Note Text: Patient presents with: Urinary Problem: still wetting the bed after completing Bactrim for UTI HPI: Patient presents today for office visit for follow up Was better while on antibiotics. Urine culture was positive. Last urine was clear as well on dip but was positive on culture. A few days after finishing started again. No hematuria. No discomfort. No behavior issues. Overall doing well. meds are changing some but seems to be doing well. No seizures. Bowels are normal for him. MEDICATIONS: Current Outpatient Prescriptions: divalproex ER (DEPAKOTE ER) 500 mg 24 hr tablet Take 1 tablet by mouth twice daily. Take 500 mg in the morning and 100 mg in the evening. topiramate (TOPAMAX) 25 mg tablet Take 2 tablets by mouth twice daily. QUEtiapine (SEROQUEL) 100 mg tablet Take 50 mg by mouth in the AM, 100 mg in the afternoon, and 1 (100 mg) tablet by mouth in the PM mometasone (ELOCON) 0.1 % cream Apply 1 application to affected area once daily. cholecalciferol (VITAMIN D) 1,000 unit tab tablet Take 1 tablet by mouth once daily. omeprazole (PRILOSEC) 20 mg capsule TAKE (1) CAPSULE BY MOUTH DAILY. gemfibrozil (LOPID) 600 mg tablet TAKE 1 TABLET BY MOUTH TWICE DAILY BEFORE MEALS acetaminophen (MAPAP) 325 mg tablet Take 2 tablets by mouth every 6 hours as needed. for pain/fever above 99/headache. May alternate with ibuprofen. PARoxetine (PAXIL) 30 mg tablet Take 30 mg by mouth twice daily. melatonin 3 mg Take 1 tablet by mouth daily at bedtime. May use additional 3 mg as needed. lactulose (DUPHALAC, CONSTULOSE) 10 gram/15 mL solution GIVE 30ML BY MOUTH TWICE DAILY NEEDED IF NO BM IN 2 DAYS Ibuprofen 200 mg cap Take 400 mg by mouth every 6 hours as needed. terbinafine HCl (LAMISIL) 1 % cream Apply 1 application to affected area once a week, and may resume daily application if redness and scaling between toes recur mupirocin 2 % ointment Apply to affected area of the right underarm twice daily as needed. miconazole (ZEASORB AF) 2 % powder Apply 1 application to affected area as needed (for irritation of the groin and the inferior abdomen.). LORazepam 1 mg ORAL tablet Take 1 tablet by mouth every 6 hours as needed. clonazePAM 0.5 mg ORAL tablet Take 1 tablet by mouth twice daily. chlorhexidine (HIBICLENS) 4 % external liquid Wash entire body from neck down every [place]. Leave on for 5 min. Scrub gently AND Rinse. MAGNESIUM, ALUMINUM HYDROXIDE (MYLANTA ORAL) Take 30 mL by mouth as needed. No current facility-administered medications for this visit. ALLERGIES: ALLERGIES Allergen Reactions - Cats Mental Status Change - Dust Mental Status Change - Egg Unknown Has been able to take flu shots and eats eggs - Keppra [Levetiracet* changes personality - Lamictal [Lamotrigi* Did not respond well - Seasonal Allergies Mental Status Change Short ragweed, grass cocklebur, vidhya - Trees Mental Status Change PAST MEDICAL HISTORY Diagnosis Date - Chiari malformation type I (HCC) - Oppositional defiant disorder of childhood or adolescence - Other convulsions SEIZURE - Pure hyperglyceridemia - Unspecified intellectual disabilities PAST SURGICAL HISTORY Procedure Laterality Date - BRONCHOSCOPY 11/2008 Dr. Mccoy - EXTRACTION ERUPTED TOOTH/EXR age 16-18 wisdom teeth FAMILY HISTORY Problem Relation Age of Onset - Cancer Paternal Grandfather esophagus - Lipids Father - Thyroid Mother - Prostate Cancer Maternal Grandfather age 70's - Diabetes Paternal Grandmother - Cancer Father BCC Social History Marital status: Single Spouse name: Years of education: Number of children: Social History Main Topics Smoking status: Never Smoker Smokeless tobacco: Never Used Alcohol use: No Drug use: No Sexual activity: No Social History Narrative Neurologist: Dr. Marvin Mccarthy- fax# [phone] Reviewed current medications, allergies, past medical history, surgical history, family history and social history today. REVIEW OF SYSTEMS All other reviewed and negative other than HPI. VITALS: BP 128/70 Pulse 100 Temp 36.9 ?C (98.5 ?F) (Tympanic) Resp 16 Wt 112.9 kg (249 lb) BMI 33.76 kg/m? Last 4 Encounter Wt Readings: Date: Wt: 02/23/2018 112.9 kg (249 lb) 01/01/2018 109.8 kg (242 lb) 02/09/2017 112.5 kg (248 lb) 09/08/2016 109.8 kg (242 lb) PHYSICAL EXAMINATION: General appearance: Well appearing, alert, in no acute distress, well-hydrated, well nourished. Skin: Skin color, texture, turgor normal, no suspicious rashes or lesions Lungs: Lungs clear to auscultation. No wheezing, rhonchi, rales Heart: RRR without murmur, gallop, or rubs. No ectopy Abdomen: Normal abdominal exam, Abdomen soft, non-tender. Bowel sounds normal. No masses, organomegaly Extremities: No deformities, edema, skin discoloration, clubbing or cyanosis. Good capillary refill. Musculoskeletal: No joint swelling, deformity, or tenderness ASSESSMENT/PLAN: 1. Nocturnal enuresis - ICD9: 788.36, ICD10: N39.44 (primary diagnosis) - cover with augmentin until culture came back. Call if symptoms worsen at all or if not better in one to two weeks - URINE CULTURE,check labs. - AMOXICILLIN 875 MG-POTASSIUM CLAVULANATE 125 MG TABLET 2. Nonintractable epilepsy without status epilepticus, unspecified epilepsy type (HCC) - ICD9: 345.90, ICD10: G40.909 -check labs. - COMP METABOLIC PANEL - CBC + DIFF - TOPIRAMATE BLD - TOPIRAMATE 25 MG TABLET 3. Encephalopathy - ICD9: 348.30, ICD10: G93.40 - continue meds. - AMMONIA BLD - QUETIAPINE 100 MG TABLET 4. Medication monitoring encounter - ICD9: V58.83, ICD10: Z51.81 - HGB A1C 5. Mental retardation - ICD9: 319, ICD10: F79 6. Other detention (current) drug therapy - ICD9: V58.69, ICD10: Z79.899 - HGB A1C Maddy Basilio MD Observed: 02/23/2018 Status: F Source: [place] URINE CULTURE 3:00 PM [facility] REPOSITORY Sp. Request/Comment: - Specimen received in preservative Culture Result - No growth (<1,000 CFU/ml) Performed By: #### URCUL #### [facility] [address] [place], [place] [address] CNOV Observed: 02/23/2018 Status: COMPLETED Source: [place] 2:00 PM [facility] REPOSITORY [facility] JAYE PAUL ([id number]) 1980 M Date Time Provider Department 02/23/18 2:00 PM MADDY BASILIO During your visit today, we recorded the following information about you: Temperature Pulse Respiration Blood pressure 98.5 degrees 100/minute 16/minute 128/70 Weight 112.9 kg Maddy Basilio MD 02/23/2018 4:02 PM Signed Patient presents with: Urinary Problem: still wetting the bed after completing Bactrim for UTI HPI: Patient presents today for office visit for follow up Was better while on antibiotics. Urine culture was positive. Last urine was clear as well on dip but was positive on culture. A few days after finishing started again. No hematuria. No discomfort. No behavior issues. Overall doing well. meds are changing some but seems to be doing well. No seizures. Bowels are normal for him. MEDICATIONS: Current Outpatient Prescriptions: divalproex ER (DEPAKOTE ER) 500 mg 24 hr tablet Take 1 tablet by mouth twice daily. Take 500 mg in the morning and 100 mg in the evening. topiramate (TOPAMAX) 25 mg tablet Take 2 tablets by mouth twice daily. QUEtiapine (SEROQUEL) 100 mg tablet Take 50 mg by mouth in the AM, 100 mg in the afternoon, and 1 (100 mg) tablet by mouth in the PM mometasone (ELOCON) 0.1 % cream Apply 1 application to affected area once daily. cholecalciferol (VITAMIN D) 1,000 unit tab tablet Take 1 tablet by mouth once daily. omeprazole (PRILOSEC) 20 mg capsule TAKE (1) CAPSULE BY MOUTH DAILY. gemfibrozil (LOPID) 600 mg tablet TAKE 1 TABLET BY MOUTH TWICE DAILY BEFORE MEALS acetaminophen (MAPAP) 325 mg tablet Take 2 tablets by mouth every 6 hours as needed. for pain/fever above 99/headache. May alternate with ibuprofen. PARoxetine (PAXIL) 30 mg tablet Take 30 mg by mouth twice daily. melatonin 3 mg Take 1 tablet by mouth daily at bedtime. May use additional 3 mg as needed. lactulose (DUPHALAC, CONSTULOSE) 10 gram/15 mL solution GIVE 30ML BY MOUTH TWICE DAILY NEEDED IF NO BM IN 2 DAYS Ibuprofen 200 mg cap Take 400 mg by mouth every 6 hours as needed. terbinafine HCl (LAMISIL) 1 % cream Apply 1 application to affected area once a week, and may resume daily application if redness and scaling between toes recur mupirocin 2 % ointment Apply to affected area of the right underarm twice daily as needed. miconazole (ZEASORB AF) 2 % powder Apply 1 application to affected area as needed (for irritation of the groin and the inferior abdomen.). LORazepam 1 mg ORAL tablet Take 1 tablet by mouth every 6 hours as needed. clonazePAM 0.5 mg ORAL tablet Take 1 tablet by mouth twice daily. chlorhexidine (HIBICLENS) 4 % external liquid Wash entire body from neck down every Monday. Leave on for 5 min. Scrub gently AND Rinse. MAGNESIUM, ALUMINUM HYDROXIDE (MYLANTA ORAL) Take 30 mL by mouth as needed. No current facility-administered medications for this visit. ALLERGIES: ALLERGIES Allergen Reactions - Cats Mental Status Change - Dust Mental Status Change - Egg Unknown Has been able to take flu shots and eats eggs - Keppra [Levetiracet* changes personality - Lamictal [Lamotrigi* Did not respond well - Seasonal Allergies Mental Status Change Short ragweed, grass cocklebur, vidhya - Trees Mental Status Change PAST MEDICAL HISTORY Diagnosis Date - Chiari malformation type I (HCC) - Oppositional defiant disorder of childhood or adolescence - Other convulsions SEIZURE - Pure hyperglyceridemia - Unspecified intellectual disabilities PAST SURGICAL HISTORY Procedure Laterality Date - BRONCHOSCOPY 11/2008 Dr. Mccoy - EXTRACTION ERUPTED TOOTH/EXR age 16-18 wisdom teeth FAMILY HISTORY Problem Relation Age of Onset - Cancer Paternal Grandfather esophagus - Lipids Father - Thyroid Mother - Prostate Cancer Maternal Grandfather age 70's - Diabetes Paternal Grandmother - Cancer Father BCC Social History Marital status: Single Spouse name: Years of education: Number of children: Social History Main Topics Smoking status: Never Smoker Smokeless tobacco: Never Used Alcohol use: No Drug use: No Sexual activity: No Social History Narrative Neurologist: Dr. Marvin Mccarthy- fax# [phone] Reviewed current medications, allergies, past medical history, surgical history, family history and social history today. REVIEW OF SYSTEMS All other reviewed and negative other than HPI. VITALS: BP 128/70 Pulse 100 Temp 36.9 ?C (98.5 ?F) (Tympanic) Resp 16 Wt 112.9 kg (249 lb) BMI 33.76 kg/m? Last 4 Encounter Wt Readings: Date: Wt: 02/23/2018 112.9 kg (249 lb) 01/01/2018 109.8 kg (242 lb) 02/09/2017 112.5 kg (248 lb) 09/08/2016 109.8 kg (242 lb) PHYSICAL EXAMINATION: General appearance: Well appearing, alert, in no acute distress, well-hydrated, well nourished. Skin: Skin color, texture, turgor normal, no suspicious rashes or lesions Lungs: Lungs clear to auscultation. No wheezing, rhonchi, rales Heart: RRR without murmur, gallop, or rubs. No ectopy Abdomen: Normal abdominal exam, Abdomen soft, non-tender. Bowel sounds normal. No masses, organomegaly Extremities: No deformities, edema, skin discoloration, clubbing or cyanosis. Good capillary refill. Musculoskeletal: No joint swelling, deformity, or tenderness ASSESSMENT/PLAN: 1. Nocturnal enuresis - ICD9: 788.36, ICD10: N39.44 (primary diagnosis) - cover with augmentin until culture came back. Call if symptoms worsen at all or if not better in one to two weeks - URINE CULTURE,check labs. - AMOXICILLIN 875 MG-POTASSIUM CLAVULANATE 125 MG TABLET 2. Nonintractable epilepsy without status epilepticus, unspecified epilepsy type (HCC) - ICD9: 345.90, ICD10: G40.909 -check labs. - COMP METABOLIC PANEL - CBC + DIFF - TOPIRAMATE BLD - TOPIRAMATE 25 MG TABLET 3. Encephalopathy - ICD9: 348.30, ICD10: G93.40 - continue meds. - AMMONIA BLD - QUETIAPINE 100 MG TABLET 4. Medication monitoring encounter - ICD9: V58.83, ICD10: Z51.81 - HGB A1C 5. Mental retardation - ICD9: 319, ICD10: F79 6. Other director long term care (current) drug therapy - ICD9: V58.69, ICD10: Z79.899 - HGB A1C MD Maddy Baker MD 02/23/2018 4:[address] on augmentin for 10 days unless guardian is notified otherwise Stop mylanta Referring Provider: SELF [200] Allergies As of Date: 02/23/2018 Noted Allergy Reaction CATS 09/17/2010 1 - Mental Status Change DUST 09/17/2010 1 - Mental Status Change EGG 07/09/2012 16 - Unknown Comments: Has been able to take flu shots and eats eggs KEPPRA (LEVETIRACETAM) 09/03/2005 Comments: changes personality LAMICTAL (LAMOTRIGINE) 04/03/2007 Comments: Did not respond well SEASONAL ALLERGIES 10/21/2013 1 - Mental Status Change Comments: Short ragweed, grass cocklebur, vidhya TREES 09/17/2010 1 - Mental Status Change Date Reviewed: 02/23/2018 Reviewed by: Jacquie Treadwell Ma - Fully Assessed Reason for Visit: Urinary Problem [252] Cmt: still wetting the bed after completing Bactrim for UTI Primary Visit Diagnosis:Nocturnal enuresis [N39.44] Other Visit Diagnoses:Nonintractable epilepsy without status epilepticus, unspecified epilepsy type (HCC) [G40.909] Encephalopathy [G93.40] Medication monitoring encounter [Z51.81] Mental retardation [F79] Other director long term care (current) drug therapy [Z79.899] Order(s):UA DIP B/O [4007323] Order #: [id number] COMP METABOLIC PANEL [SQCMP] Order #: [id number] FUTURE CBC + DIFF [SQCBCDIF] Order #: [id number] FUTURE AMMONIA BLD [SQNH3] Order #: [id number] FUTURE TOPIRAMATE BLD [SQTOPIR] Order #: [id number] FUTURE divalproex ER (DEPAKOTE ER) 500 mg 24 hr tabletTake 1 tablet by mouth twice daily. Take 500 mg in the morning and 100 mg in the evening.Disp: Rfl: topiramate (TOPAMAX) 25 mg tabletTake 2 tablets by mouth twice daily.Disp: Rfl: QUEtiapine (SEROQUEL) 100 mg tabletTake 50 mg by mouth in the AM, 100 mg in the afternoon, and 1 (100 mg) tablet by mouth in the PMDisp: Rfl: HGB A1C [VDHQC3W] Order #: [id number] FUTURE URINE CULTURE [SQURCUL] Order #: [id number] amoxicillin-clavulanic acid (AUGMENTIN) 875-125 mg per tabletTake 1 tablet by mouth twice daily for 7 days.Disp: 14 tabletRfl: 0 Prescriptions as of 02/23/2018 Sig: DIVALPROEX ER 500 MG TABLET,E* Take 1 tablet by mouth twice * TOPIRAMATE 25 MG TABLET Take 2 tablets by mouth twice* QUETIAPINE 100 MG TABLET Take 50 mg by mouth in the AM* MOMETASONE 0.1 % TOPICAL CREAM Apply 1 application to affect* CHOLECALCIFEROL (VITAMIN D3) * Take 1 tablet by mouth once d* OMEPRAZOLE 20 MG CAPSULE,MARICEL* TAKE (1) CAPSULE BY MOUTH NEHA* GEMFIBROZIL 600 MG TABLET TAKE 1 TABLET BY MOUTH TWICE * ACETAMINOPHEN 325 MG TABLET Take 2 tablets by mouth every* PAROXETINE 30 MG TABLET Take 30 mg by mouth twice neha* MELATONIN 3 MG TABLET Take 1 tablet by mouth daily * LACTULOSE 10 GRAM/15 ML ORAL * GIVE 30ML BY MOUTH TWICE LINDA* IBUPROFEN 200 MG CAPSULE Take 400 mg by mouth every 6 * TERBINAFINE HCL 1 % TOPICAL C* Apply 1 application to affect* MUPIROCIN 2 % TOPICAL OINTMENT Apply to affected area of the* MICONAZOLE NITRATE 2 % TOPICA* Apply 1 application to affect* * LORAZEPAM 1 MG TABLET Take 1 tablet by mouth every * * CLONAZEPAM 0.5 MG TABLET Take 1 tablet by mouth twice * AMOXICILLIN 875 MG-POTASSIUM * Take 1 tablet by mouth twice * CHLORHEXIDINE GLUCONATE 4 % T* Wash entire body from neck do* MYLANTA ORAL Take 30 mL by mouth as needed. Problem List As Of Date 02/23/2018 Noted Resolved Mental retardation [F79] INVALID FOR* Epilepsy (HCC) [G40.909] INVALID FOR* More... PURE HYPERGLYCERIDEMIA [E78.1] INVALID FOR* OBESITY NOS [E66.9] INVALID FOR* OPPOSITIONAL DEFIANT DISORDER [F91.3] INVALID FOR* DERMATOPHYTOSIS OF FOOT [B35.3] INVALID FOR*11/23/2007 Routine General Medical Examination at a [facility]*INVALID FOR*04/28/2012 Class: Chronic More... CHIARI I MALFORMATION [G93.5] INVALID FOR* More... Physically aggressive behavior [R46.89] INVALID FOR* GERD with esophagitis [K21.0] INVALID FOR* Other instructions from your clinician: Place on augmentin for 10 days unless guardian is notified otherwise Stop mylanta Prescriptions ordered this encounter Disp Refills Start End DIVALPROEX ER 500 MG TABLET,EXTENDED* 02/23/2018 Class: Med Update Route: ORAL Sig: Take 1 tablet by mouth twice daily. Take 500 mg in the morning and 100 mg in the evening. TOPIRAMATE 25 MG TABLET 02/23/2018 Class: Med Update Route: ORAL Sig: Take 2 tablets by mouth twice daily. QUETIAPINE 100 MG TABLET 02/23/2018 Class: Med Update Sig: Take 50 mg by mouth in the AM, 100 mg in the afternoon, and 1 (100 mg) tablet by mouth in the PM AMOXICILLIN 875 MG-POTASSIUM CLAVULA* 14 t* 0 02/23/2018 02/23/2018 Class: Print RX Route: ORAL Sig: Take 1 tablet by mouth twice daily for 7 days. AMOXICILLIN 875 MG-POTASSIUM CLAVULA* 14 t* 0 02/23/2018 03/02/2018 Route: ORAL Sig: Take 1 tablet by mouth twice daily for 7 days. Medications Discontinued During This Encounter divalproex ER (DEPAKOTE ER) 500 mg 2* 12/21/2017 02/23/2018 Class: Med Update Sig: Take 500 mg in the morning and 100 mg in the evening. Patient taking differently: Take 500 mg by mouth twice daily. Take 500 mg in the morning and 100 mg in the evening. Disc: Reason for discontinue is not on file. Cosign accepted by MADDY BASILIO MD[[id number]] on 12/22/2017 8:09 AM topiramate (TOPAMAX) 25 mg tablet 12/14/2017 02/23/2018 Class: Med Update Route: ORAL Sig: Take 1 tablet by mouth twice daily. Patient taking differently: Take 50 mg by mouth twice daily. Disc: Reason for discontinue is not on file. QUEtiapine (SEROQUEL) 100 mg tablet 12/13/2017 02/23/2018 Class: Med Update Sig: Take 1 (100mg) tablet by mouth in the AM, 50 mg in the afternoon, and 1 (100 mg) tablet by mouth in the PM Patient taking differently: Take 50 mg by mouth in the AM, 100 mg in the afternoon, and 1 (100 mg) tablet by mouth in the PM Disc: Reason for discontinue is not on file. Cosign accepted by MADDY BASILIO MD[[id number]] on 12/13/2017 4:37 PM amoxicillin-clavulanic acid (AUGMENT* 14 t* 0 02/23/2018 02/23/2018 Class: Print RX Route: ORAL Sig: Take 1 tablet by mouth twice daily for 7 days. Disc: Reason for discontinue is not on file. Encounter Status:Closed by MADDY BASILIO MD on 02/23/18 URINALYSIS WITH Collected: 01/01/2018 Status: F Source: [place] MICROSCOPIC 3:36 PM [facility] REPOSITORY TYPE CODE TESTS RESULT OUT OF RANGE REFERENCE UNITS LAB UCOL Yellow Color Yellow LAB [facility] Clear Clarity Abnormal Cloudy Alert LAB UGLUC Negative mg/dL Glucose, Urine Negative LAB UBIL Negative Bilirubin, Urine Negative LAB UKET Negative Ketones, Urine Negative LAB USPG 1.005-1.030 Specific [place], Ur 1.017 LAB UHGB Negative Abnormal Hemoglobin/Blood, 1+ Alert Ur LAB UPH 4.5-8.0 pH 5.0 LAB UPROT Negative mg/dL Protein, Abnormal Urine 30 Alert LAB UUROB Normal Urobilinogen Normal LAB UNITR Negative Nitrites Abnormal Positive Alert LAB ULKEST Negative Leukest Abnormal 3+ Alert LAB UCOM Comments SEE COMMENT Result Comment: N/A LAB UMCOM Urine SEE Jessica Comment COMMENT Result Comment: N/A LAB UWBC 0-5 /HPF Abnormal Alert WBC >25 LAB URBC 0-3 /HPF RBC 0-3 Performed By: #### UAWMIC #### [facility] [address], [place] [address] Observed: 01/01/2018 Status: F Source: [place] URINE CULTURE 3:36 PM [facility] REPOSITORY Sp. Request/Comment: - Specimen received in preservative Culture Result - >=100,000 CFU/ml Klebsiella pneumoniae --> ABNORMAL ALERT ORGANISM: Klebsiella pneumoniae METHOD: Minimum inhibitory concentration(Vitek) Antibiotic Interp JESSICA Status Ampicillin RESISTANT >=32 F Gentamicin SUSCEPTIBLE <=1 F Trimeth sulfameth SUSCEPTIBLE <=20 F Cefazolin SUSCEPTIBLE <=4 F CLSI breakpoints for therapy of uncomplicated UTI's due to E.coli, K.pneumoniae, and P.mirabilis were applied and may be used to predict the activity of oral agents(cefaclor, cefdinir, cefpodoxime, cefp rozil, cefuroxime, cephalexin, loracarbef). Ciprofloxacin SUSCEPTIBLE <=0.25 F Nitrofurantoin INTERMEDIATE 64 F Cefepime SUSCEPTIBLE <=1 F Piperacillin/Tazobac SUSCEPTIBLE <=4 F Ampicillin Sulbact SUSCEPTIBLE 4 F Ceftriaxone SUSCEPTIBLE <=1 F Meropenem SUSCEPTIBLE <=0.25 F Ertapenem SUSCEPTIBLE <=0.5 F Performed By: #### URCUL #### [facility] [address] [place], [place] [address] PROGRESS Observed: 01/01/2018 Status: COMPLETED Source: [place] 2:27 PM [facility] REPOSITORY HNO ID: [id number] Author: Maddy Basilio Service: (none) Author Type: Physician Type: Progress Notes Filed: 01/01/2018 4:32 PM Note Text: Patient presents with: Rash: bilateral knees HPI: Patient presents today for office visit for rash on his knees. No changes in soaps or detergents that they are aware of. Has not tried anything on it. No one else with rash. Had low grade temp last over weekend. No cough or congestion. No gi issues. Has had some bed wetting. No definite urinary issues. MEDICATIONS: Current Outpatient Prescriptions: divalproex ER (DEPAKOTE ER) 500 mg 24 hr tablet Take 500 mg in the morning and 100 mg in the evening. (Patient taking differently: Take 500 mg by mouth twice daily. Take 500 mg in the morning and 100 mg in the evening. ) topiramate (TOPAMAX) 25 mg tablet Take 1 tablet by mouth twice daily. (Patient taking differently: Take 50 mg by mouth twice daily. ) QUEtiapine (SEROQUEL) 100 mg tablet Take 1 (100mg) tablet by mouth in the AM, 50 mg in the afternoon, and 1 (100 mg) tablet by mouth in the PM cholecalciferol (VITAMIN D) 1,000 unit tab tablet Take 1 tablet by mouth once daily. omeprazole (PRILOSEC) 20 mg capsule TAKE (1) CAPSULE BY MOUTH DAILY. gemfibrozil (LOPID) 600 mg tablet TAKE 1 TABLET BY MOUTH TWICE DAILY BEFORE MEALS chlorhexidine (HIBICLENS) 4 % external liquid Wash entire body from neck down every Monday. Leave on for 5 min. Scrub gently AND Rinse. acetaminophen (MAPAP) 325 mg tablet Take 2 tablets by mouth every 6 hours as needed. for pain/fever above 99/headache. May alternate with ibuprofen. PARoxetine (PAXIL) 30 mg tablet Take 30 mg by mouth twice daily. melatonin 3 mg Take 1 tablet by mouth daily at bedtime. May use additional 3 mg as needed. lactulose (DUPHALAC, CONSTULOSE) 10 gram/15 mL solution GIVE 30ML BY MOUTH TWICE DAILY NEEDED IF NO BM IN 2 DAYS MAGNESIUM, ALUMINUM HYDROXIDE (MYLANTA ORAL) Take 30 mL by mouth as needed. Ibuprofen 200 mg cap Take 400 mg by mouth every 6 hours as needed. terbinafine HCl (LAMISIL) 1 % cream Apply 1 application to affected area once a week, and may resume daily application if redness and scaling between toes recur mupirocin 2 % ointment Apply to affected area of the right underarm twice daily as needed. miconazole (ZEASORB AF) 2 % powder Apply 1 application to affected area as needed (for irritation of the groin and the inferior abdomen.). LORazepam 1 mg ORAL tablet Take 1 tablet by mouth every 6 hours as needed. clonazePAM 0.5 mg ORAL tablet Take 1 tablet by mouth twice daily. No current facility-administered medications for this visit. ALLERGIES: ALLERGIES Allergen Reactions - Cats Mental Status Change - Dust Mental Status Change - Egg Unknown Has been able to take flu shots and eats eggs - Keppra [Levetiracet* changes personality - Lamictal [Lamotrigi* Did not respond well - Seasonal Allergies Mental Status Change Short ragweed, grass cocklebur, vidhya - Trees Mental Status Change PAST MEDICAL HISTORY Diagnosis Date - Chiari malformation type I (HCC) - Oppositional defiant disorder of childhood or adolescence - Other convulsions SEIZURE - Pure hyperglyceridemia - Unspecified intellectual disabilities PAST SURGICAL HISTORY Procedure Laterality Date - BRONCHOSCOPY 11/2008 Dr. Mccoy - EXTRACTION ERUPTED TOOTH/EXR age 16-18 wisdom teeth FAMILY HISTORY Problem Relation Age of Onset - Cancer Paternal Grandfather esophagus - Lipids Father - Thyroid Mother - Prostate Cancer Maternal Grandfather age 70's - Diabetes Paternal Grandmother - Cancer Father BCC Social History Marital status: Single Spouse name: Years of education: Number of children: Social History Main Topics Smoking status: Never Smoker Smokeless tobacco: Never Used Alcohol use: No Drug use: No Sexual activity: No Social History Narrative Neurologist: Dr. Marvin Mccarthy- fax# [phone] Reviewed current medications, allergies, past medical history, surgical history, family history and social history today. REVIEW OF SYSTEMS All other reviewed and negative other than HPI. HEALTH MAINTENANCE: Reviewed health maintenance issues today and recommended the following in detail. DTAP,TDAP,TD(8 - Tdap) due on 08/24/2017 VITALS: BP 120/82 Pulse 88 Resp 14 Wt 109.8 kg (242 lb) BMI 32.81 kg/m? Last 4 Encounter Wt Readings: Date: Wt: 01/01/2018 109.8 kg (242 lb) 02/09/2017 112.5 kg (248 lb) 09/08/2016 109.8 kg (242 lb) 07/22/2016 112.9 kg (249 lb) PHYSICAL EXAMINATION: General appearance: Well appearing, alert, in no acute distress, well-hydrated, well nourished. Skin: Skin color, texture, turgor normal, pink lesions scattered around the knees. Almost look like insect bites. heent negative. Throat unremarkable. Lungs cta Heart RRR ASSESSMENT/PLAN: 1. Dermatitis - ICD9: 692.9, ICD10: L30.9 (primary diagnosis) - discussed skin care of rash - follow up if symptoms persist or worsen. 2. Nocturnal enuresis - ICD9: 788.36, ICD10: N39.44 - check labs. - URINALYSIS WITH MICROSCOPIC - URINE CULTURE Maddy Basilio MD CNOV Observed: 01/01/2018 Status: COMPLETED Source: [place] 2:00 PM [facility] REPOSITORY Office Visit (FAMPWS) JAYE PAUL ([id number]) 1980 M Date Time Provider Department 01/01/18 2:00 PM MADDY BASILIO During your visit today, we recorded the following information about you: Pulse Respiration Blood pressure Weight 88/minute 14/minute 120/82 109.8 kg Maddy Basilio MD 01/01/2018 4:32 PM Signed Patient presents with: Rash: bilateral knees HPI: Patient presents today for office visit for rash on his knees. No changes in soaps or detergents that they are aware of. Has not tried anything on it. No one else with rash. Had low grade temp last over weekend. No cough or congestion. No gi issues. Has had some bed wetting. No definite urinary issues. MEDICATIONS: Current Outpatient Prescriptions: divalproex ER (DEPAKOTE ER) 500 mg 24 hr tablet Take 500 mg in the morning and 100 mg in the evening. (Patient taking differently: Take 500 mg by mouth twice daily. Take 500 mg in the morning and 100 mg in the evening. ) topiramate (TOPAMAX) 25 mg tablet Take 1 tablet by mouth twice daily. (Patient taking differently: Take 50 mg by mouth twice daily. ) QUEtiapine (SEROQUEL) 100 mg tablet Take 1 (100mg) tablet by mouth in the AM, 50 mg in the afternoon, and 1 (100 mg) tablet by mouth in the PM cholecalciferol (VITAMIN D) 1,000 unit tab tablet Take 1 tablet by mouth once daily. omeprazole (PRILOSEC) 20 mg capsule TAKE (1) CAPSULE BY MOUTH DAILY. gemfibrozil (LOPID) 600 mg tablet TAKE 1 TABLET BY MOUTH TWICE DAILY BEFORE MEALS chlorhexidine (HIBICLENS) 4 % external liquid Wash entire body from neck down every Monday. Leave on for 5 min. Scrub gently AND Rinse. acetaminophen (MAPAP) 325 mg tablet Take 2 tablets by mouth every 6 hours as needed. for pain/fever above 99/headache. May alternate with ibuprofen. PARoxetine (PAXIL) 30 mg tablet Take 30 mg by mouth twice daily. melatonin 3 mg Take 1 tablet by mouth daily at bedtime. May use additional 3 mg as needed. lactulose (DUPHALAC, CONSTULOSE) 10 gram/15 mL solution GIVE 30ML BY MOUTH TWICE DAILY NEEDED IF NO BM IN 2 DAYS MAGNESIUM, ALUMINUM HYDROXIDE (MYLANTA ORAL) Take 30 mL by mouth as needed. Ibuprofen 200 mg cap Take 400 mg by mouth every 6 hours as needed. terbinafine HCl (LAMISIL) 1 % cream Apply 1 application to affected area once a week, and may resume daily application if redness and scaling between toes recur mupirocin 2 % ointment Apply to affected area of the right underarm twice daily as needed. miconazole (ZEASORB AF) 2 % powder Apply 1 application to affected area as needed (for irritation of the groin and the inferior abdomen.). LORazepam 1 mg ORAL tablet Take 1 tablet by mouth every 6 hours as needed. clonazePAM 0.5 mg ORAL tablet Take 1 tablet by mouth twice daily. No current facility-administered medications for this visit. ALLERGIES: ALLERGIES Allergen Reactions - Cats Mental Status Change - Dust Mental Status Change - Egg Unknown Has been able to take flu shots and eats eggs - Keppra [Levetiracet* changes personality - Lamictal [Lamotrigi* Did not respond well - Seasonal Allergies Mental Status Change Short ragweed, grass cocklebur, vidhya - Trees Mental Status Change PAST MEDICAL HISTORY Diagnosis Date - Chiari malformation type I (HCC) - Oppositional defiant disorder of childhood or adolescence - Other convulsions SEIZURE - Pure hyperglyceridemia - Unspecified intellectual disabilities PAST SURGICAL HISTORY Procedure Laterality Date - BRONCHOSCOPY 11/2008 Dr. Mccoy - EXTRACTION ERUPTED TOOTH/EXR age 16-18 wisdom teeth FAMILY HISTORY Problem Relation Age of Onset - Cancer Paternal Grandfather esophagus - Lipids Father - Thyroid Mother - Prostate Cancer Maternal Grandfather age 70's - Diabetes Paternal Grandmother - Cancer Father BCC Social History Marital status: Single Spouse name: Years of education: Number of children: Social History Main Topics Smoking status: Never Smoker Smokeless tobacco: Never Used Alcohol use: No Drug use: No Sexual activity: No Social History Narrative Neurologist: Dr. Marvin Mccarthy- fax# [phone] Reviewed current medications, allergies, past medical history, surgical history, family history and social history today. REVIEW OF SYSTEMS All other reviewed and negative other than HPI. HEALTH MAINTENANCE: Reviewed health maintenance issues today and recommended the following in detail. DTAP,TDAP,TD(8 - Tdap) due on 08/24/2017 VITALS: BP 120/82 Pulse 88 Resp 14 Wt 109.8 kg (242 lb) BMI 32.81 kg/m? Last 4 Encounter Wt Readings: Date: Wt: 01/01/2018 109.8 kg (242 lb) 02/09/2017 112.5 kg (248 lb) 09/08/2016 109.8 kg (242 lb) 07/22/2016 112.9 kg (249 lb) PHYSICAL EXAMINATION: General appearance: Well appearing, alert, in no acute distress, well-hydrated, well nourished. Skin: Skin color, texture, turgor normal, pink lesions scattered around the knees. Almost look like insect bites. heent negative. Throat unremarkable. Lungs cta Heart RRR ASSESSMENT/PLAN: 1. Dermatitis - ICD9: 692.9, ICD10: L30.9 (primary diagnosis) - discussed skin care of rash - follow up if symptoms persist or worsen. 2. Nocturnal enuresis - ICD9: 788.36, ICD10: N39.44 - check labs. - URINALYSIS WITH MICROSCOPIC - URINE CULTURE Maddy Basilio MD Referring Provider: SELF [[id number]] Allergies As of Date: 01/01/2018 Noted Allergy Reaction CATS 09/17/2010 1 - Mental Status Change DUST 09/17/2010 1 - Mental Status Change EGG 07/09/2012 16 - Unknown Comments: Has been able to take flu shots and eats eggs KEPPRA (LEVETIRACETAM) 09/03/2005 Comments: changes personality LAMICTAL (LAMOTRIGINE) 04/03/2007 Comments: Did not respond well SEASONAL ALLERGIES 10/21/2013 1 - Mental Status Change Comments: Short ragweed, grass cocklebur, vidhya TREES 09/17/2010 1 - Mental Status Change Date Reviewed: 06/02/2017 Reviewed by: Jacquie Treadwell Ma - Fully Assessed Reason for Visit: Rash [1087] Cmt: bilateral knees Primary Visit Diagnosis:Dermatitis [L30.9] Other Visit Diagnosis:Nocturnal enuresis [N39.44] Order(s):URINALYSIS WITH MICROSCOPIC [SQUAWMIC] Order #: [id number] URINE CULTURE [SQURCUL] Order #: [id number] FUTURE mometasone (ELOCON) 0.1 % creamApply 1 application to affected area once daily.Disp: 45 gRfl: 0 Prescriptions as of 01/01/2018 Sig: MOMETASONE 0.1 % TOPICAL CREAM Apply 1 application to affect* DIVALPROEX ER 500 MG TABLET,E* Take 500 mg in the morning an* Patient taking differently: Take 500 mg by mouth twice da* TOPIRAMATE 25 MG TABLET Take 1 tablet by mouth twice * Patient taking differently: Take 50 mg by mouth twice neha* QUETIAPINE 100 MG TABLET Take 1 (100mg) tablet by mout* CHOLECALCIFEROL (VITAMIN D3) * Take 1 tablet by mouth once d* OMEPRAZOLE 20 MG CAPSULE,MARICEL* TAKE (1) CAPSULE BY MOUTH NEHA* GEMFIBROZIL 600 MG TABLET TAKE 1 TABLET BY MOUTH TWICE * CHLORHEXIDINE GLUCONATE 4 % T* Wash entire body from neck do* ACETAMINOPHEN 325 MG TABLET Take 2 tablets by mouth every* PAROXETINE 30 MG TABLET Take 30 mg by mouth twice neha* MELATONIN 3 MG TABLET Take 1 tablet by mouth daily * LACTULOSE 10 GRAM/15 ML ORAL * GIVE 30ML BY MOUTH TWICE LINDA* MYLANTA ORAL Take 30 mL by mouth as needed. IBUPROFEN 200 MG CAPSULE Take 400 mg by mouth every 6 * TERBINAFINE HCL 1 % TOPICAL C* Apply 1 application to affect* MUPIROCIN 2 % TOPICAL OINTMENT Apply to affected area of the* MICONAZOLE NITRATE 2 % TOPICA* Apply 1 application to affect* * LORAZEPAM 1 MG TABLET Take 1 tablet by mouth every * * CLONAZEPAM 0.5 MG TABLET Take 1 tablet by mouth twice * Problem List As Of Date 01/01/2018 Noted Resolved Mental retardation [F79] INVALID FOR* Epilepsy (HCC) [G40.909] INVALID FOR* More... PURE HYPERGLYCERIDEMIA [E78.1] INVALID FOR* OBESITY NOS [E66.9] INVALID FOR* OPPOSITIONAL DEFIANT DISORDER [F91.3] INVALID FOR* DERMATOPHYTOSIS OF FOOT [B35.3] INVALID FOR*11/23/2007 Routine General Medical Examination at [facility]*INVALID FOR*04/28/2012 Class: Chronic More... CHIARI I MALFORMATION [G93.5] INVALID FOR* More... Physically aggressive behavior [R46.89] INVALID FOR* GERD with esophagitis [K21.0] INVALID FOR* Prescriptions ordered this encounter Disp Refills Start End MOMETASONE 0.1 % TOPICAL CREAM 45 g 0 01/01/2018 Route: TOPICAL Sig: Apply 1 application to affected area once daily. Disposition: Return if symptoms worsen or fail to improve. Follow-up and Disposition History Recorded Encounter Status:Closed by MADDY BASILIO MD on 01/01/18 AMMONIA Collected: 12/27/2017 Status: F Source: [place] 8:38 AM [facility] TYPE CODE TESTS RESULT OUT OF REFERENCE UNITS RANGE LAB L503.5510 11-32 umol/L High AMMONIA 76.0 Performed By: #### L503.5510 #### [facility] [place], [address] CBC AND DIFFERENTIAL Collected: 12/16/2017 Status: F Source: [place] 8:51 AM [facility] REPOSITORY TYPE CODE TESTS RESULT OUT OF REFERENCE UNITS RANGE LAB WBC 3.70-11.00 k/uL WBC 5.72 LAB RBC 4.20-6.00 m/uL RBC 4.79 LAB HGB 13.0-17.0 g/dL Hemoglobin 15.8 LAB HCT 39.0-51.0 % Hematocrit 46.5 LAB MCV 80.0-100.0 fL MCV 97.1 LAB MCH 26.0-34.0 pG MCH 33.0 LAB MCHC 30.5-36.0 g/dL MCHC 34.0 LAB RDWCV 11.5-15.0 % RDW-CV 12.2 LAB PLTCT 150-400 k/uL Platelet Count 154 LAB MPV 9.0-12.7 fL MPV 11.5 LAB ANEUT % Neut% 23.2 LAB AANEUT 1.45-7.50 k/uL Low Abs Neut 1.31 LAB ALYMP % Lymph% 59.6 LAB AALYMP 1.00-4.00 k/uL Abs Lymph 3.41 LAB AMONO % [place]% 9.3 LAB AAMONO <0.87 k/uL Abs [place] 0.53 LAB AEOS % Eosin% 7.2 LAB AAEOS <0.46 k/uL Abs Eosin 0.41 LAB ABASO % Baso% 0.7 LAB AABASO <0.11 k/uL Abs Baso 0.04 LAB AUNRBC 0 /100 WBC NRBCs 0.0 LAB ABNRBC <0.01 k/uL Absolute nRBC <0.01 LAB DTYP DTYPE Auto Diff Performed By: #### CBCDIF, VPA, CMP, NH3, TOPIR #### [facility] [employer] [address] [place], [place] [address] VALPROIC ACID Collected: 12/16/2017 Status: F Source: [place] 8:51 AM [facility] REPOSITORY TYPE CODE TESTS RESULT OUT OF REFERENCE UNITS RANGE LAB VPA 50-100 ug/mL High Valproic Acid 105.3 Result Comment: Reference ranges and high/low indicator flags are provided as general guidelines only. The treating physician must determine appropriate target levels/dosing based on the specific clinical situation. Performed By: #### CBCDIF, VPA, CMP, NH3, TOPIR #### [facility] [address] [place], [place] [address] COMP METABOLIC PANEL Collected: 12/16/2017 Status: F Source: [place] 8:51 AM [facility] REPOSITORY TYPE CODE TESTS RESULT OUT OF REFERENCE UNITS RANGE LAB TP 6.3-8.0 g/dL Protein, Total 7.7 LAB ALB 3.9-4.9 g/dL Albumin 4.6 LAB CA 8.5-10.2 mg/dL Calcium, Total 9.8 LAB TBIL 0.2-1.3 mg/dL Bilirubin, Total 0.4 LAB ALKP 36-108 U/L Alkaline Phosphatase 62 LAB AST 14-40 U/L AST 35 LAB GLU 74-99 mg/dL Glucose 84 Result Comment: The [place] [employer] (ADA) provides guidance for cutoff values for fasting glucose and random glucose. The ADA defines fasting as no caloric intake for at least 8 hours. Fas ting plasma glucose results between 100 to 125 mg/dL indicate increased risk for diabetes (prediabetes). Fasting plasma glucose results greater than or equal to 126 mg/dL meet the criteria for diagnosis of diabetes. In the absence of unequivocal hyperglycemia, results should be confirmed by repeat testing. In a patient with classic symptoms of hyperglycemia or hyperglycemic crisis, random plasma glucose results greater than or equal to 200 mg/dL meet the criteria for diagnosis of diabetes. Reference: Standards of Medical Care in Diabetes 2016, [place] [employer]. Diabetes Care. 2016.39(Suppl 1). LAB BUN 9-24 mg/dL BUN 14 LAB CRET 0.73-1.22 mg/dL Creatinine 0.81 LAB NA 136-144 mmol/L Sodium 139 LAB K 3.7-5.1 mmol/L Potassium 4.0 LAB CL 97-105 mmol/L Chloride 99 LAB CO2 22-30 mmol/L CO2 25 LAB AGAP 9-18 mmol/L Anion Gap 15 LAB ALT 10-54 U/L ALT 38 LAB GFRAA eGFR- Amer. >60 LAB GFRNAA . eGFR-All Other Races >60 Result Comment: eGFR (Estimated GFR) Units of measure: mL/min/1.73 meters squared eGFR is derived from the reexpressed MDRD Study equation using the following parameters: serum creatinine, age, gender and race. The creatinine assay has been calibrated to be traceable to IDMS. An eGFR <60 mL/min/1.73m2 for >3 months is consistent with chronic kidney disease. Refer to KDOQI guidelines for clinical interpretation. In patients with unstable renal function, e.g. those with acute kidney injury, the eGFR may not accurately reflect actual GFR. Performed By: #### CBCDIF, VPA, CMP, NH3, TOPIR #### [facility] [employer] [address] [place] [address] AMMONIA Collected: 12/16/2017 Status: F Source: [place] 8:51 AM [facility] REPOSITORY TYPE CODE TESTS RESULT OUT OF REFERENCE UNITS RANGE LAB NH3 16-60 umol/L High Ammonia 83 Performed By: #### CBCDIF, VPA, CMP, NH3, TOPIR #### [facility] [employer] [address] [place] [id number] TOPIRAMATE Collected: 12/16/2017 Status: F Source: [place] 8:51 AM [facility] REPOSITORY TYPE CODE TESTS RESULT OUT OF REFERENCE UNITS RANGE LAB TOPIR 5.0-20.0 ug/mL Low Topiramate <1.5 Result Comment: Result rechecked. Performed By: #### CBCDIF, VPA, CMP, NH3, TOPIR #### [facility] [employer] [address] [place] [address] CNPN Observed: 12/13/2017 Status: COMPLETED Source: [place] 12:00 AM [facility] REPOSITORY Telephone (FAMPWS) JAYE PAUL ([id number]) 1980 M Date Time Provider Department 12/13/17 MADDY BASILIO During your visit today, we recorded the following information about you: Mary Anne Guillermo RN 12/13/2017 2:41 PM Addendum Patient's mother called with request that labs be ordered per Neurologist. She is requesting a call when orders filed. Pended. Also needs Topramate blood test. Not Pended. Please review and advise. ANJU Camacho MD 12/13/2017 3:33 PM Signed done Saman Paige LPN 12/13/2017 3:55 PM Signed Notiffrancesca Dang. Advised there is no blood test to check topamax? She states that will check with neurology for sure and let us know if something else needs added. Jacquie Treadwell Ma 12/13/2017 4:16 PM Signed Addended by: JACQUIE TREADWELL MA on: 12/13/2017 04:16 PM Modules accepted: Orders Jacquie Treadwell Ma 12/13/2017 4:24 PM Signed Patient taking Topamax to try to eliminate the Depakote due to high ammonia levels. Jacquie Treadwell Ma 12/13/2017 4:24 PM Signed Addended by: JACQUIE TREADWELL MA on: 12/13/2017 04:24 PM Modules accepted: Orders Maddy Basilio MD 12/14/2017 8:08 AM Signed Addended by: MADDY BASILIO MD on: 12/14/2017 08:08 AM Modules accepted: Orders Allergies As of Date: 12/13/2017 Noted Allergy Reaction CATS 09/17/2010 1 - Mental Status Change DUST 09/17/2010 1 - Mental Status Change EGG 07/09/2012 16 - Unknown Comments: Has been able to take flu shots and eats eggs KEPPRA (LEVETIRACETAM) 09/03/2005 Comments: changes personality LAMICTAL (LAMOTRIGINE) 04/03/2007 Comments: Did not respond well SEASONAL ALLERGIES 10/21/2013 1 - Mental Status Change Comments: Short ragweed, grass cocklebur, vidhya TREES 09/17/2010 1 - Mental Status Change Date Reviewed: 06/02/2017 Reviewed by: Jacquie Treadwell Ma - Fully Assessed Reason for Visit: Lab Orders [2988] Primary Visit Diagnosis:Nonintractable epilepsy without status epilepticus, unspecified epilepsy type (HCC) [G40.909] Other Visit Diagnosis:Encephalopathy [G93.40] Order(s):COMP METABOLIC PANEL [SQCMP] Order #: [id number] FUTURE CBC + DIFF [SQCBCDIF] Order #: [id number] FUTURE AMMONIA BLD [SQNH3] Order #: [id number] FUTURE VALPROIC A/DEPAKENE [SQVPA] Order #: [id number] FUTURE TOPIRAMATE BLD [SQTOPIR] Order #: [id number] FUTURE QUEtiapine (SEROQUEL) 100 mg tabletTake 1 (100mg) tablet by mouth in the AM, 50 mg in the afternoon, and 1 (100 mg) tablet by mouth in the PMDisp: Rfl: topiramate (TOPAMAX) 25 mg tabletTake 1 tablet by mouth twice daily.Disp: Rfl: Prescriptions as of 12/13/2017 Sig: QUETIAPINE 100 MG TABLET Take 1 (100mg) tablet by mout* CHOLECALCIFEROL (VITAMIN D3) * Take 1 tablet by mouth once d* OMEPRAZOLE 20 MG CAPSULE,MARICEL* TAKE (1) CAPSULE BY MOUTH NEHA* GEMFIBROZIL 600 MG TABLET TAKE 1 TABLET BY MOUTH TWICE * CHLORHEXIDINE GLUCONATE 4 % T* Wash entire body from neck do* ACETAMINOPHEN 325 MG TABLET Take 2 tablets by mouth every* PAROXETINE 30 MG TABLET Take 30 mg by mouth twice neha* MELATONIN 3 MG TABLET Take 1 tablet by mouth daily * LACTULOSE 10 GRAM/15 ML ORAL * GIVE 30ML BY MOUTH TWICE LINDA* MYLANTA ORAL Take 30 mL by mouth as needed. IBUPROFEN 200 MG CAPSULE Take 400 mg by mouth every 6 * TERBINAFINE HCL 1 % TOPICAL C* Apply 1 application to affect* MUPIROCIN 2 % TOPICAL OINTMENT Apply to affected area of the* MICONAZOLE NITRATE 2 % TOPICA* Apply 1 application to affect* * LORAZEPAM 1 MG TABLET Take 1 tablet by mouth every * * CLONAZEPAM 0.5 MG TABLET Take 1 tablet by mouth twice * * DEPAKOTE ER 500 MG TABLET,EXT* Take two(2) tablets two(2) ti* TOPIRAMATE 25 MG TABLET Take 1 tablet by mouth twice * Problem List As Of Date 12/13/2017 Noted Resolved Mental retardation [F79] INVALID FOR* Epilepsy (HCC) [G40.909] INVALID FOR* More... PURE HYPERGLYCERIDEMIA [E78.1] INVALID FOR* OBESITY NOS [E66.9] INVALID FOR* OPPOSITIONAL DEFIANT DISORDER [F91.3] INVALID FOR* DERMATOPHYTOSIS OF FOOT [B35.3] INVALID FOR*11/23/2007 Routine General Medical Examination at a Health*INVALID FOR*04/28/2012 Class: Chronic More... CHIARI I MALFORMATION [G93.5] INVALID FOR* More... Physically aggressive behavior [R46.89] INVALID FOR* GERD with esophagitis [K21.0] INVALID FOR* Prescriptions ordered this encounter Disp Refills Start End QUETIAPINE 100 MG TABLET 12/13/2017 Class: Med Update Sig: Take 1 (100mg) tablet by mouth in the AM, 50 mg in the afternoon, and 1 (100 mg) tablet by mouth in the PM Cosign accepted by MADDY BASILIO MD[[id number]] on 12/13/2017 4:37 PM TOPIRAMATE 25 MG TABLET 12/14/2017 Class: Med Update Route: ORAL Sig: Take 1 tablet by mouth twice daily. Medications Discontinued During This Encounter Bisacodyl (DULCOLAX) 5 mg tab 12/13/2017 Class: Historical Med Route: ORAL Sig: Take 1 tablet by mouth as needed. Disc: Changing Therapy/Dosage Form Cholecalciferol, Vitamin D3, 1,000 u* 90 c* 3 11/25/2016 12/13/2017 Route: ORAL Sig: Take 1 capsule by mouth once daily. Disc: Duplicate Entry QUEtiapine (SEROQUEL) 100 mg tablet 05/27/2015 12/13/2017 Class: Med Update Sig: Take 1 (100mg) tablet by mouth in the AM and 1 and a half (150mg) tablet by mouth in the PM Patient taking differently: Take 100 mg by mouth three times daily. 50 mg in the am, 100 mg at 2 pm and 8 pm. Disc: Reason for discontinue is not on file. Encounter Status:Closed by SAMAN PAIGE LPN on 12/13/17 AMMONIA Collected: 10/21/2017 Status: F Source: [place] 9:04 AM [facility] REPOSITORY TYPE CODE TESTS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
== END 2018-08-19 02:53 | disposition home or self-care (01) ==
LOC: ED 08-19 00:27
PROVIDERS: Emergency Provider Emergency Medicine; Family Provider Family Medicine; PCP Family Medicine
DX: F91.8 Other conduct disorders (principal); F84.5 Asperger's syndrome; R56.9 Unspecified convulsions; K21.9 Gastro-esophageal reflux disease without esophagitis; Z79.899 Other long term (current) drug therapy
CPT/HCPCS: 80048; 80164; 80201; 80307; 80320; 81001; 85025; 99284; G0480

== ENCOUNTER 2018-09-18 05:55 | Emergency (ER) | payer MEDICARE, MEDICAID, SELFPAY ==
[2018-09-18] VITALS (14 sets, daily range): BP systolic 135–159; BP diastolic 71–99; PULSE 58–95; RESP 16–18; TEMP 36.4–36.8; O2SAT 96–100; BMI 34.4
--- NOTE | 2018-09-18 06:21 | ED.DCSUM_ITS ---
- ER Visit Summary Date of Service: 09/18/18 Chief Complaint: Aggressive behavior History of Present Illness: The patient is a 38 M with a history of Asperger's currently living at a penitentiary. Per penitentiary staff patient had increased aggressive behavior at the penitentiary of the last 6 weeks or so. There have been some recent medication adjustments. Patient was seen by his doctor yesterday where he was diagnosed with cellulitis along the gluteal cleft and he was started on doxycycline. Mother states some blood work was done at that time. She reviewed the available results with me on my chart. Patient was more aggressive again tonight and please had to be called. Physical Examination: Vital signs grossly unremarkable. Patient sitting upright in bed. He has largely nonverbal at baseline. Head neck examination reveals no sign of trauma. Heart is regular rate and rhythm. Lungs sounds are clear. Abdomen is soft nontender. Skin examination was mild erythema with a small blister along the left superior gluteal cleft. No fluctuance or sign of abscess. Neuro exam reveals the patient to be alert. He moves all 4. Test Results: Chemistry studies are unremarkable. Glucose is 92. Ammonia level is 33. Emergency Department Course and Treatment: I initially reviewed plan with mother at bedside. He just had a whole host of labs done yesterday so we agreed to repeat his glucose, ammonia, and his Depakote level. At nursing change of shift new nurse went in to introduce himself. alf staff now states they will not take him back without crisis evaluated the patient. Remainder of required labs have been ordered and patient be signed out to oncoming physician. Treatment Plan: [] Disposition: Pending crisis evaluation Impression: Aggressive behavior with history of Asperger's This note was generated with Hi[employer] dictation software. It may contain incorrect words, spelling, and punctuation that were not noted in review of the chart prior to signing ED Disposition - Plan for ED Patient: Chief Complaint: Mental Health Referrals: Say Basilio MD [Primary Care Provider] -
[2018-09-18 06:47] LABS: Anion Gap 10 (5-15); BUN 8 mg/dL (7-18); BUN/Creat Ratio 9.5 RATIO (10-20); Calcium,Total 8.8 mg/dL (8.5-10.1); Chloride 103 mmol/L (98-107); Creatinine, Serum 0.84 mg/dL (0.70-1.30); EST Glomerular Filtration Rate 108 mL/min (>60); Est Glom Filt Rate - Afr Amer 131 mL/min (>60); Estimated Creatinine Clearance 123.12 ml/min; Glucose 92 mg/dL (74-106); Potassium 3.5 mmol/L (3.5-5.1); Sodium Level 137 mmol/L (136-145)
[2018-09-18 07:22] LABS: Valproic Acid (Depakene) Level 83 ug/mL (50-100)
[2018-09-18 07:33] LABS: Absolute Lymphocyte Count 2.75 X10^3/ul (0.83-4.51); Basophil# 0.03 X10^3/uL; Basophil% 0.5 % (0-1); Eosinophils% 3.3 % (0-5); Hematocrit 44.5 % (40-54); Hemoglobin 15.2 g/dl (13.0-16.5); Lymphocyte # 2.75 X10^3/ul (4.0); Lymphocyte % 45.8 % (19-41); Mean Corp Hgb Conc 34.2 g/gl (32-36); Mean Corpuscular Hgb 32.1 pg (27.0-32.0); Mean Corpuscular Volume 93.9 fL (80-94); Mean Platelet Vol. 11.6 fl (6.2-12.0); Monocyte# 1.01 X10^3/uL; Monocyte% 16.8 % (0-10); Neutrophil % 33.4 % (47-70); Platelet Count 177 K/mm3 (150-450); RBC Distribution Width CV 12.6 % (11.6-14.6); RBC Distribution Width SD 42.3 fl (35.1-43.9); Red Blood Count 4.74 M/mm3 (4.6-6.2)
[2018-09-18 07:34] LABS: POSITIVE COUNT NO; POSITIVE DIFFERENTIAL NO; POSITIVE MORPHOLOGY NO
[2018-09-18 07:39] LABS: AST(SGOT) 26 U/L (15-37); Alanine Aminotransfer ALT/SGPT 54 U/L (16-61); Albumin, Serum 3.9 g/dL (3.2-5.0); Alkaline Phosphatase 60 U/L (45-117); Bilirubin, Direct 0.13 mg/dL (0.00-0.30); Globulin 3.7 g/dL (2.2-4.2); Protein, Total 7.6 g/dL (6.4-8.2)
--- NOTE | 2018-09-18 08:10 | NURSING ---
CALLED [facility], TALKED TO FRANDY, LET THEM KNOW ABOUT PATIENT
[2018-09-18 08:45] LABS: Amphetamine Urine VISTA NEGATIVE (<1000 ng/mL); Barbiturate Urine VISTA NEGATIVE (< 200 ng/mL); Benzodiazepine Urine VISTA NEGATIVE (< 200 ng/mL); Cocaine Urine VISTA NEGATIVE (< 300 ng/mL); Ecstacy Urine VISTA NEGATIVE (< 500 ng/mL); Methadone Urine VISTA NEGATIVE (< 300 ng/mL); PCP Urine VISTA NEGATIVE (< 25 ng/mL); THC Urine VISTA NEGATIVE (< 50 ng/mL); Vista UDS pH Range 7
--- NOTE | 2018-09-18 08:53 | NURSING ---
SEVERIANO, CRISIS, HERE
[2018-09-18] MEDS: QUEtiapine 25 MG Tablet 50 MG PO (09:18)
[2018-09-18] MEDS: PARoxetine 10 MG Tablet 30 MG PO ×2 (09:18→20:28)
[2018-09-18] MEDS: Topiramate 100 MG Tablet PO ×2 (09:19→20:27)
[2018-09-18] MEDS: Doxycycline 100 MG CAPSULE PO ×2 (09:19→20:28)
[2018-09-18] MEDS: clonazePAM 0.5 MG Tablet PO ×2 (09:45→20:26)
[2018-09-18] MEDS: Pantoprazole Sodium 20 MG Tablet PO (11:25)
[2018-09-18] MEDS: QUEtiapine 100 MG Tablet PO ×2 (13:29→20:26)
--- NOTE | 2018-09-18 14:58 | NURSING ---
SEVERIANO, CRISIS, CALLED.
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
--- NOTE | 2018-09-18 19:10 | CM.ED ---
SOCIAL WORK NOTE: RECEIVED CALL FROM JESUS CURRY WITH THE BOARD OF DD. JESUS STATES WAS CALLED BY CRISIS AND WANTED TO CALL AND UPDATE THIS WORKER. JESUS STATES BOARD OF DD IS ASSISTING ON PLACEMENT OF PT AND IS AWARE PT UNABLE TO RETURN TO SNF. JESUS INFORMED THIS WORKER PT'S SSA THROUGH THE BOARD OF DD IS ADELSO FRANCIS [phone]. JESUS APOLOGIZED TO THIS WORKER FOR THE DELAY IN PLACEMENT. STILL AWAITING PLACEMENT AT THIS TIME.
[2018-09-18] MEDS: Ziprasidone IM 20 MG/ML VIAL IM (20:21)
[2018-09-18] MEDS: MELATONIN 3 MG TABLET PO (20:26)
[2018-09-18] MEDS: Gemfibrozil 600 MG Tablet PO (20:27)
[2018-09-18] MEDS: Divalproex Sodium 250 MG Tablet 500 MG PO (20:27)
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
[2018-09-19] VITALS (8 sets, daily range): BP systolic 127–147; BP diastolic 81–97; PULSE 86–103; RESP 14–18; TEMP 37.6; O2SAT 92–100
--- NOTE | 2018-09-19 01:10 | ED.RN ---
AT 0015 THIS PT WAS EXPLAINED TO THAT IF HE COOPERATED WITH STAFF AND LONG TERM STAFF MEMBERS THAT RESTRAINTS CAN START TO COME OFF SO AT THIS TIME, PT HAD 2 RESTRAINTS REMOVED
--- NOTE | 2018-09-19 01:54 | ED.RN ---
AT THIS TIME, 0150, PT RESTRAINTS WERE D/C'D DUE TO COOPERATION
[2018-09-19] MEDS: clonazePAM 0.5 MG Tablet PO ×2 (07:59→23:36)
[2018-09-19] MEDS: PARoxetine 10 MG Tablet 30 MG PO (08:00)
[2018-09-19] MEDS: Pantoprazole Sodium 20 MG Tablet PO (08:01)
[2018-09-19] MEDS: Gemfibrozil 600 MG Tablet PO ×2 (08:02→19:06)
[2018-09-19] MEDS: Divalproex Sodium 250 MG Tablet 500 MG PO ×2 (08:03→19:06)
--- NOTE | 2018-09-19 09:55 | ED.DEP ---
ED Disposition - Plan for ED Patient: Disposition: Home or Assisted Living Chief Complaint: Mental Health Referrals: Say Basilio MD [Primary Care Provider] - As Needed Additional Instructions: Crisis was unable to find appropriate placement for this patient. Psychiatric facilities were unwilling to assume his care.
--- NOTE | 2018-09-19 10:54 | ED.RN ---
PER PHONE CONVERSATION WITH FITNESS DIRECTOR SEVERIANO, PT HAS NOT BEEN ACCEPTED TO [facility] DUE TO DEVELOPMENTAL DELAY. SEVERIANO STATES THAT PT MUST RECEIVE SERVICES FROM THE DEVELOPMENT BOARD. PT IS TO BE DISCHARGED BACK TO THE [facility]. DISCUSSED PLAN OF ACTION WITH [facility] STAFF PRESENT AT BEDSIDE. STAFF CONVEYED UNDERSTANDING AND STATED THAT SHE WOULD NEED TO CALL HER BOSS. AFTER APPROXIMATELY HALF AN HOUR AFTER DISCHARGE THIS NURSE ATTEMPTED TO RECEIVE AN UPDATE ABOUT TRANSPORT BACK TO THE [facility]. ANOTHER STAFF MEMBER WAS PRESENT IN THE ROOM, AND APPEARED AGITATED. STAFF MEMBER STATED THAT SHE WAS WORKING ON ARRANGEMENTS. WILL CONTINUE TO MONITOR.
--- NOTE | 2018-09-19 11:53 | CM.ED ---
Social Work Note Updated by nursing that pt has been discharged. Placed call to pt's SSA, Nereyda Montoya, at [phone] and left vm requesting further information and explaining that the pt has been discharged and the ED is not an appropriate nor conducive environment for the pt to remain. Will await a return phone call. CAMILLE Pastrana, KEIKO
[2018-09-19] MEDS: QUEtiapine 100 MG Tablet PO ×2 (13:25→23:36)
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
--- NOTE | 2018-09-19 14:22 | CM.ED ---
Social Work Note Left vm with Nereyda Montoya updating. SW will continue to assist as needed. Shiloh Ribera, CONCRETE CURER, KEIKO
[2018-09-19] MEDS: MELATONIN 3 MG TABLET PO (19:08)
[2018-09-20] VITALS (15 sets, daily range): BP systolic 97–172; BP diastolic 57–100; PULSE 68–121; RESP 16–19; O2SAT 92–96
--- NOTE | 2018-09-20 03:47 | ED.RN ---
PT acting out with long term staff member. Staff member requesting medication. Order placed by Dr. Fay. This RN noticed error of paxil should be given bid and order is only for qd. Order changed per Dr. Fay.
[2018-09-20] MEDS: LORazepam 2 MG/ML Syringe IM (03:54)
[2018-09-20] MEDS: clonazePAM 0.5 MG Tablet PO ×2 (07:23→21:11)
[2018-09-20] MEDS: QUEtiapine 25 MG Tablet 50 MG PO (07:24)
[2018-09-20] MEDS: Pantoprazole Sodium 20 MG Tablet PO (07:24)
[2018-09-20] MEDS: PARoxetine 10 MG Tablet 30 MG PO ×2 (07:24→21:11)
[2018-09-20] MEDS: Divalproex Sodium 250 MG Tablet 500 MG PO ×2 (07:24→17:01)
[2018-09-20] MEDS: Gemfibrozil 600 MG Tablet PO ×2 (07:24→17:01)
[2018-09-20] MEDS: QUEtiapine 100 MG Tablet PO ×2 (13:28→21:11)
[2018-09-20] MEDS: LORazepam 1 MG Tablet 2 MG PO ×2 (15:10→18:59)
--- NOTE | 2018-09-20 15:11 | CM.ED ---
Social Work Note Updated by pt's SSA, Nereyda Montoya, who states after their 1.75 hr meeting with [place], [facility] Board, legal guardians, and [facility] that the information it to be reviewed at the other facility this date, but they believe the pt will need to remain here overnight. Express concern with the pt remaining here another night as he has no medical reason to be here and the ED is not a behavioral setting. Nereyda states that she will have her director contact the director of the other facility to encourage them to expedite the process d/t the situation, and have her director contact the ED Director to provide further update. Anticipate discharge tomorrow, 09/22. CAMILLE Pastrana, KEIKO
[2018-09-20] MEDS: Doxycycline 100 MG CAPSULE PO (18:59)
[2018-09-20] MEDS: MELATONIN 3 MG TABLET PO (21:11)
[2018-09-20] MEDS: Acetaminophen 500 MG Tablet 1000 MG PO (21:12)
[2018-09-21] VITALS (11 sets, daily range): BP systolic 150–158; BP diastolic 76–98; PULSE 64–107; RESP 16–19; O2SAT 93–99
[2018-09-21] MEDS: Gemfibrozil 600 MG Tablet PO (09:17)
[2018-09-21] MEDS: Divalproex Sodium 250 MG Tablet 500 MG PO (09:17)
--- NOTE | 2018-09-21 09:38 | ED.RN ---
mother dirk called. reports between [facility] and herself, pt has exceptance at [facility]. [phone]. inquiring about coverage and transport. called [facility] to confirm placement, paperwork etc in preparation for possible transfer to named facility. will update mom once everything is confirmd ans setup
--- NOTE | 2018-09-21 10:31 | NURSING ---
CALLED DEBBIE MEYER FOR YAZAN
--- NOTE | 2018-09-21 11:00 | CM.ED ---
Social Work Emergency Department Received call from Ashley Graham RN requesting social work assistance regarding placement from the ED. RN reports received call from the patient's mother and legal guardian, Laurence Paul, stating that [facility] ([facility]) has accepted patient and would like patient as soon as possible. RN states the mother had questions about transportation. Called mother and legal guardian, Laurence Paul, at [phone] (found letter of guardianship scanned into patient's record). Per Laurence patient has been accepted to the [facility]. Laurence inquiring about transportation, whether residential staff and family need to transport, or whether and ambulance will be covered. Laurence shared with this teletypewriter operator events leading up to ED visit, emergency discharge from residential nursing home due to behaviors, and how things have gone since patient has been in the ED. Let Laurence know that the hospital cannot guarantee payment for services, but that ambulance is covered under Medicare and copayment billed to Medicaid, covered if certified and found to be medically necessary. Discussed with Laurence, that based on patient's behaviors, impulsiveness and reports of mood lability, supervision during transport likely warranted. Explored with Laurence that a car transport, based on recent impulsivity, may not be the safest method, especially in light of distance having to travel. Again, reinforced that hospital cannot guarantee payment but certification will be completed indicating need for transport. Educated Laurence, that should Medicare deny the transport claim, that Laurence can appeal this decision. Laurence verbally agrees to ambulance and states preference to use [employer], as this company has helped patient in the past. Laurence asks for this teletypewriter operator to communicate to Coretta Gilmore, of [employer], who is in the ED and with Nereyda Montoya at the Board of DD in [facility]. Spoke with Nereyda at [phone], extension [phone]. Nereyda confirms patient has been accepted to the [facility]. Reports there was a team meeting with the [facility] last evening in the [facility] ED, and after meeting patient determined to be accepted. Nereyda reports has completed the preadmission ICF-MR form for the state. Nereyda provides Екатерина Hitchcock, , as the person report should be called to at [facility]. Nereyda asks for call back when time of transport is known. [facility], and updated to planning. Coretta reports that worker Claudia, who is also in the ED, can ride along in the ambulance as patient is familiar with Claudia, and may help to mitigate any aggression during transport (note, the patient's mother voiced desire for Claudia to ride along in the ambulance). Collaborated with ED staff and physician. Let ED RN Sandeep Walton know of number and name to call report. ED medical records secretary arranged [facility] ambulance. This teletypewriter operator assisted with completion of ambulance form for medical necessity; also signed by doctor. Copy made and placed on ED chart. Also copied letter of guardianship to be sent with patient the [facility]. Let Nereyda at Board of know of discharge time. Coretta and Claudia updated. When [facility] arrived, called patient's mother to confirm that patient in the squad and leaving the hospital. Nereyda voices thanks to hospital staff for care for patient. No other services requested or indicated. Patient discharged to [facility] for continued care and treatment of this patient. -VIDHYA Reyes, REGULATORY SUBMISSIONS SPECIALIST
[2018-09-21] MEDS: Pantoprazole Sodium 20 MG Tablet PO (11:08)
[2018-09-21] MEDS: clonazePAM 0.5 MG Tablet PO (11:08)
[2018-09-21] MEDS: PARoxetine 10 MG Tablet 30 MG PO (11:08)
[2018-09-21] MEDS: QUEtiapine 25 MG Tablet 50 MG PO (11:09)
--- NOTE | 2018-09-21 11:35 | ED.RN ---
ATTEMPTED TO CALL REPORTS TO PRIYA MACARIO AT [facility]. THE CALL WENT TO VOICE MAIL, MESSAGE LEFT TO CALL BACK.
--- NOTE | 2018-09-24 11:54 | CM.ED ---
Social Work Emergency Department Spoke with patient's mother and legal guardian Laurence Paul ([phone]) today. Laurence had requested on 09-21-18 that this signwriter follow up regarding some questions Laurence had about how the initial discharge process went for patient, when patient was cleared from the ED and was to be discharged with out a place to go. Laurence reports intention to get patient's records and to review. Laurence indicates that after looking at information, if wants to go any farther with voicing concerns about initial discharge plan and the discharge paperwork being taken to [place] worker who was in the room with patient, rather than contacting the guardian to discuss discharge will call in to hospital again. Discussed with Laurence that when caregivers are present and disagree with plan, that caregivers/support people can advocate and voice concerns with hospital staff, as was done for this patient and plan was held until something else could be put in place. Laurence voiced concern for people who don't have families or social workers to advocate. Acknowledged that there are people such as this, and that when situations like this are known hospital social workers do attempt to make appropriate referrals to get people access to support. Answered Laurence's questions as able, listened to concerns and also talked about community systems issues as Laurence voiced frustration with past gaps in community systems for this patient and accessing services available; voiced worry for consumers who don't have family or socia workers to advocate. Let Laurence know that if feels that needs to talk to someone again about this, can call the patient advocate. Provided advocate line number if Laurence feels the need to talk to someone again. Laurence expressed thanks again for the care that patient received while in the ED, as well as follow up call today that Laurence had asked of this signwriter. No other services requested or indicated. -VIDHYA Reyes, [place]
== END 2018-09-21 11:47 | disposition skilled nursing facility (03) ==
PROVIDERS: Emergency Provider Emergency Medicine; Family Provider Family Medicine; PCP Family Medicine
DX: F91.8 Other conduct disorders (principal); F84.5 Asperger's syndrome; L03.317 Cellulitis of buttock; E66.9 Obesity, unspecified; Z79.2 Long term (current) use of antibiotics; Z79.899 Other long term (current) drug therapy
CPT/HCPCS: 80048; 80076; 80164; 80307; 80320; 82140; 85025; 96372; 99285; A4216; G0480; J3486

== ENCOUNTER 2019-08-06 09:15 | Emergency (ER) | payer MEDICARE, MEDICAID, SELFPAY ==
[2018-09-18 05:56] VITALS: BMI 34.4
[2019-08-06] VITALS (8 sets, daily range): BP systolic 123–146; BP diastolic 78–107; PULSE 74–113; RESP 14–18; TEMP 36.7; O2SAT 97–98; BMI 27.7
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
[2019-08-06] MEDS: LORazepam 1 MG Tablet PO (09:53)
--- NOTE | 2019-08-06 09:53 | ED.RN ---
pt cooperative with tking po meds but resisting gown. to allow ativan to work
[2019-08-06 10:31] LABS: Absolute Lymphocyte Count 2.98 X10^3/uL (0.83-4.51); Absolute Neutrophil Count 1.3 X10^3/uL (2.0-7.7); Basophil# 0.05 X10^3/uL; Basophil% 0.9 % (0-1); Eosinophil# 0.21 X10^3/uL; Hematocrit 44.8 % (40-54); Hemoglobin 15.4 g/dL (13.0-16.5); Lymphocyte # 2.98 X10^3/ul (4.0); Lymphocyte % 56.3 % (19-41); Mean Corp Hgb Conc 34.4 g/dL (32-36); Mean Corpuscular Volume 92.9 fL (80-94); Mean Platelet Vol. 10.4 fl (6.2-12.0); Monocyte# 0.73 X10^3/uL; Monocyte% 13.8 % (0-10); NRBC Flagged by Analyzer 0 % (0-5); Neutrophil # 1.31 X10^3/uL (2.7-7.7); Neutrophil % 24.8 % (47-70); Platelet Count 162 K/mm3 (150-450); RBC Distribution Width CV 11.8 % (11.6-14.6); RBC Distribution Width SD 40.4 fl (35.1-43.9); Red Blood Count 4.82 M/mm3 (4.6-6.2); White Blood Count 5.3 K/mm3 (4.4-11.0)
[2019-08-06 10:47] LABS: Anion Gap 7 (5-15); BUN 7 mg/dL (7-18); BUN/Creat Ratio 8.1 RATIO (10-20); Calcium,Total 9.5 mg/dL (8.5-10.1); Chloride 107 mmol/L (98-107); Creatinine, Serum 0.86 mg/dL (0.70-1.30); EST Glomerular Filtration Rate 105 mL/min (>60); Est Glom Filt Rate - Afr Amer 127 mL/min (>60); Estimated Creatinine Clearance 134.08 ml/min; Glucose 94 mg/dL (74-106); Potassium 3.6 mmol/L (3.5-5.1); Sodium Level 139 mmol/L (136-145)
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
[2019-08-06 10:56] LABS: Alcohol, Blood (Medical)-Serum < 3.0 mg/dL
--- NOTE | 2019-08-06 14:15 | CM.ED ---
Social Work Telephone call to Crisis to consult for assessment of patient, Mini. Mini stating to be familiar with patient from September assessment and to need to contact landscaping supervisor, Shannen to determine what needs to be done. Mini to call this psychologist social back with vincent. Laurence and team update on above. Daniel Boyd BIOSTATISTICS TEACHER, KEIKO
--- NOTE | 2019-08-06 15:38 | CM.ED ---
Social Work Return phone call from Babs, Mini. Mini stating that patient IQ is 51 and thus will not qualify for inpatient psychiatric placement. Mini recommending for the board of DD to place patient. Mini planning to contact Nereyda Montoya to updated. Daniel OBRIEN, KEIKO
--- NOTE | 2019-08-06 15:57 | CM.ED ---
Addendum entered by Rosibel Boyd 08/06/19 17:12: Updated ED Director, Alexandrea on case as well. Dr. Canas and nursing staff updated on current status of case. Original Note: Social Work Telephone call from Nereyda Montoya at Board of . Nereyda stating to have spoken to Mini with Crisis and to be aware that patient will not qualify for inpatient psychiatric placement. Nereyda stating to have been working with Nereyda's director, Temi Barber and Superintendant Jax Petty and to be working towards patient transitioning to [facility]. Nereyda stating that this will take time. This social media director attempting to communicate a sense of urgency in regards to the case as the ER is not an appropriate level of care for patient. Nereyda stating understanding but that patient is being safe from others in the ER. This social media director stating patient risk of agitation or frustration with extended stay in the ER. Nereyda voicing understanding and stating to plan to continue to work on this. Nereyda stating plan to contact ER social media director tomorrow with update. Telephone call to Andrés Scales, manufacturing manager to consult on case and see if further action needs to be made. Alysha encouraging this social media director to make contact with Temi Barber and to update ED director, Alexandrea. Telephone call to Temi Barber. Left voicemail requesting for return phone call. Will continue to follow. Daniel OBRIEN, KEIKO
[2019-08-06 16:30] LABS: Amphetamine Urine VISTA NEGATIVE (<1000 ng/mL); Barbiturate Urine VISTA NEGATIVE (< 200 ng/mL); Benzodiazepine Urine VISTA NEGATIVE (< 200 ng/mL); Cocaine Urine VISTA NEGATIVE (< 300 ng/mL); Ecstacy Urine VISTA NEGATIVE (< 500 ng/mL); Methadone Urine VISTA NEGATIVE (< 300 ng/mL); PCP Urine VISTA NEGATIVE (< 25 ng/mL); THC Urine VISTA NEGATIVE (< 50 ng/mL); Vista UDS pH Range 6
[2019-08-06] MEDS: QUEtiapine 100 MG Tablet 200 MG PO (16:34)
[2019-08-06] MEDS: Gemfibrozil 600 MG Tablet PO (16:34)
--- NOTE | 2019-08-06 17:23 | CM.ED ---
Social Work Telephone call from Temi Barber, patient has been approved for transfer to [facility]. Patient group tester, April is coming to provide transportation as the senior care and Laurence believe that patient is stable enough for them to transport. Updated Doctor and medical team. All agreeable to plan. Daniel OBRIEN, KEIKO
--- NOTE | 2019-08-06 18:53 | DCINST.ED_ITS ---
ED Disposition - Plan for ED Patient: Disposition: Home or Assisted Living Diagnosis: Violent behavior, Autism Referrals: Say Basilio MD [Primary Care Provider] - Additional Instructions: Go directly to [facility].
[2019-08-06] MEDS: Topiramate 50 MG Tablet PO (19:02)
[2019-08-06] MEDS: Divalproex (ER) 500 MG Tablet PO (19:02)
[2019-08-06] MEDS: QUEtiapine 100 MG Tablet 400 MG PO (19:03)
[2019-08-06] MEDS: MELATONIN 3 MG TABLET PO (19:03)
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
== END 2019-08-06 19:09 | disposition home or self-care (01) ==
PROVIDERS: Emergency Provider Emergency Medicine; Family Provider Family Medicine; PCP Family Medicine
DX: R45.6 Violent behavior (principal); F84.0 Autistic disorder; Z79.899 Other long term (current) drug therapy
CPT/HCPCS: 80048; 80307; 80320; 85025; 99284; G0480